=== PATIENT | female | born 1970 | race Caucasian/White ===

== ENCOUNTER → 2017-06-03 17:30 | Outpatient (REF) | payer MEDICAID, SELFPAY | LOC: LAB 17:30 | PROVIDERS: Visit Provider Nurse Practitioner Obstetrics & Gynecology | DX: L73.2 Hidradenitis suppurativa (principal) | CPT/HCPCS: 87070; 87077; 87205 ==

== ENCOUNTER 2018-07-20 19:13 | Emergency (ER) | payer MEDICAID, SELFPAY ==
[2018-07-20 19:35] VITALS: BP 117/71; PULSE 91; RESP 16; TEMP 36.6; O2SAT 98; BMI 30.9
--- NOTE | 2018-07-20 19:47 | HMH.EDUTC ---
[facility] [place] Disposition Clinical Impression: Torticollis Disposition: Home, Self-Care Condition on Discharge: Good Instructions: Torticollis, DI for Torticollis Additional Instructions: Take the medications as directed. Follow up with your regular doctor. Apply heat to the affected areas. Make sure you don't burn yourself. GO TO THE ER FOR ANY WORSENING SYMPTOMS Prescriptions: predniSONE [Prednisone 20mg Tab] 20 mg PO BID 4 Days #8 tab Methocarbamol [Robaxin 500mg Tab] 500 mg PO TIDP PRN #30 tab PRN Reason: Muscle Spasm Referrals: Rafa Hoffman [Primary Care Provider] - Time of Disposition: 19:58 Medical Decision Making - Medical Records Medical records reviewed: Yes: I reviewed the patient's medical records. - Mark Inquiry Pt receiving controlled substance: No Mark was queried for this patient: No Vital Signs: 07/20/18 19:35 07/20/18 20:03 Temperature 98 F 98 F Temperature Source Oral Pulse Rate 91 H Pulse Rate [Left Radial] 91 H Respiratory Rate 16 16 Blood Pressure 117/71 Blood Pressure [Left Arm] 117/71 Blood Pressure Mean [Left Arm] 86 Blood Pressure Source [Left Arm] Automatic Cuff Blood Pressure Position [Left Arm] Sitting 02 Sat by Pulse Oximetry 98 Oxygen Delivery Method Room Air [facility] [place] HPI - General Time Seen by Provider: 07/20/18 19:48 Mode of Arrival: Ambulatory Source of Information: Patient Limitations: No Limitations Description of Symptoms (Recalled from Triage Doc. by RN): PT STATES THAT SHE WOKE UP YESTERDAY MORNING WITH A STIFF NECK. PT ADVISES THAT UPON AWAKENING THIS MORNING, THE STIFFNESS AND PAIN HAD WORKED DOWN INTO HER RT SHOULDER AND ARM HEENT Symptoms (Recalled from RN notes): No Resp Symptoms (Recalled from RN notes): No Skin Symptoms (Recalled from RN notes): No MS Symptoms (Recalled from RN notes): Yes (STIFF/PAINFUL NECK AND RT ARM) Functional Status (Recalled from RN notes): N/A - Related Data Home Medications Medication Instructions Recorded Confirmed clonazepam 1 mg tablet 0.5 mg PO BID tab 06/03/17 05/03/18 ethosuximide 250 mg capsule 250 mg PO QID cap 06/03/17 05/03/18 levothyroxine 175 mcg tablet 175 mcg PO ONCE 06/03/17 05/03/18 lisinopril 5 mg tablet 5 mg PO ONCE 06/03/17 05/03/18 paroxetine 30 mg tablet 30 mg PO ONCE 06/03/17 05/03/18 simvastatin 40 mg tablet 40 mg PO QAM 06/03/17 05/03/18 Phenazopyridine HCl [Pyridium 200 pow PO TID 01/29/18 05/03/18 200mg Tablet] predniSONE [Prednisone 20mg 20 mg PO BID 05/03/18 05/03/18 Tab] Previous Rx's Medication Instructions Recorded Albuterol Sulfate [Albuterol HFA 2 puffs IH Q6HP PRN #1 inh 07/08/18 Inhaler] Benzonatate [Tessalon Perle 100mg 100 mg PO TID PRN #15 cap 07/08/18 Cap] Doxycycline Monohydrate 100 mg PO BID #14 tab 07/08/18 [Doxycycline Wallace 100mg Tab] predniSONE [Prednisone 20mg 20 mg PO BID #10 tab 07/08/18 Tab] Methocarbamol [Robaxin 500mg Tab] 500 mg PO TIDP PRN #30 tab 07/20/18 predniSONE [Prednisone 20mg 20 mg PO BID 4 Days #8 tab 07/20/18 Tab] Allergies Allergy/AdvReac Type Severity Reaction Status Date / Time erythromycin base Allergy Unknown Verified 07/08/18 09:13 [ERYTHROMYCIN BASE] Penicillins [PENICILLINS] Allergy Unknown Verified 07/08/18 09:13 - Worker's Comp Is this a Worker's Comp case?: No [facility] History - Hepatitis A Screen Drug use history?: No High risk sexual behaviors?: No History of sexually transmitted infection?: No Currently employed?: No Childcare worker?: No Do you have indoor plumbing?: Yes Do you have electricity?: Yes Attestation statement:: This patient has been screened for Hepatitis A risk factors. I have reviewed the patient's past medical history: Yes Medical History: Reports:: Anxiety, Depression, Hyperlipidemia, Hypertension, Seizures Denies:: Cancer, Diabetes Mellitus Type 1, Diabetes Mellitus Type 2, MRSA Other Medical History: Reports: Thyroid Dise
--- NOTE | 2018-07-20 19:52 | ED_ITS ---
[facility] [place] Disposition Clinical Impression: Torticollis Disposition: Home, Self-Care Condition on Discharge: Good Instructions: Torticollis, DI for Torticollis Additional Instructions: Take the medications as directed. Follow up with your regular doctor. Apply heat to the affected areas. Make sure you don't burn yourself. GO TO THE ER FOR ANY WORSENING SYMPTOMS Prescriptions: predniSONE [Prednisone 20mg Tab] 20 mg PO BID 4 Days #8 tab Methocarbamol [Robaxin 500mg Tab] 500 mg PO TIDP PRN #30 tab PRN Reason: Muscle Spasm Referrals: Rafa Hoffman [Primary Care Provider] - Time of Disposition: 19:58 Medical Decision Making - Medical Records Medical records reviewed: Yes: I reviewed the patient's medical records. - Mark Inquiry Pt receiving controlled substance: No Mark was queried for this patient: No Vital Signs: 07/20/18 19:35 07/20/18 20:03 Temperature 98 F 98 F Temperature Source Oral Pulse Rate 91 H Pulse Rate [Left Radial] 91 H Respiratory Rate 16 16 Blood Pressure 117/71 Blood Pressure [Left Arm] 117/71 Blood Pressure Mean [Left Arm] 86 Blood Pressure Source [Left Arm] Automatic Cuff Blood Pressure Position [Left Arm] Sitting 02 Sat by Pulse Oximetry 98 Oxygen Delivery Method Room Air [facility] [place] HPI - General Time Seen by Provider: 07/20/18 19:48 Mode of Arrival: Ambulatory Source of Information: Patient Limitations: No Limitations Description of Symptoms (Recalled from Triage Doc. by RN): PT STATES THAT SHE WOKE UP YESTERDAY MORNING WITH A STIFF NECK. PT ADVISES THAT UPON AWAKENING THIS MORNING, THE STIFFNESS AND PAIN HAD WORKED DOWN INTO HER RT SHOULDER AND ARM HEENT Symptoms (Recalled from RN notes): No Resp Symptoms (Recalled from RN notes): No Skin Symptoms (Recalled from RN notes): No MS Symptoms (Recalled from RN notes): Yes (STIFF/PAINFUL NECK AND RT ARM) Functional Status (Recalled from RN notes): N/A - Related Data Home Medications Medication Instructions Recorded Confirmed clonazepam 1 mg tablet 0.5 mg PO BID tab 06/03/17 05/03/18 ethosuximide 250 mg capsule 250 mg PO QID cap 06/03/17 05/03/18 levothyroxine 175 mcg tablet 175 mcg PO ONCE 06/03/17 05/03/18 lisinopril 5 mg tablet 5 mg PO ONCE 06/03/17 05/03/18 paroxetine 30 mg tablet 30 mg PO ONCE 06/03/17 05/03/18 simvastatin 40 mg tablet 40 mg PO QAM 06/03/17 05/03/18 Phenazopyridine HCl [Pyridium 200 pow PO TID 01/29/18 05/03/18 200mg Tablet] predniSONE [Prednisone 20mg 20 mg PO BID 05/03/18 05/03/18 Tab] Previous Rx's Medication Instructions Recorded Albuterol Sulfate [Albuterol HFA 2 puffs IH Q6HP PRN #1 inh 07/08/18 Inhaler] Benzonatate [Tessalon Perle 100mg 100 mg PO TID PRN #15 cap 07/08/18 Cap] Doxycycline Monohydrate 100 mg PO BID #14 tab 07/08/18 [Doxycycline [place] 100mg Tab] predniSONE [Prednisone 20mg 20 mg PO BID #10 tab 07/08/18 Tab] Methocarbamol [Robaxin 500mg Tab] 500 mg PO TIDP PRN #30 tab 07/20/18 predniSONE [Prednisone 20mg 20 mg PO BID 4 Days #8 tab 07/20/18 Tab] Allergies Allergy/AdvReac Type Severity Reaction St
[2018-07-20 20:03] VITALS: BP 117/71; PULSE 91; RESP 16; TEMP 36.6; O2SAT 98
== END 2018-07-20 20:03 | disposition home or self-care (01) ==
PROVIDERS: Emergency Provider Nurse Practitioner Family; PCP Family Medicine
DX: M43.6 Torticollis (principal); I10 Essential (primary) hypertension; F41.8 Other specified anxiety disorders; E78.5 Hyperlipidemia, unspecified; F17.210 Nicotine dependence, cigarettes, uncomplicated; Z88.0 Allergy status to penicillin
CPT/HCPCS: 99201

== ENCOUNTER 2018-08-08 06:47 | Emergency (ER) | payer MEDICAID, SELFPAY ==
[2018-08-08 06:57] VITALS: BP 120/68; PULSE 103; RESP 20; TEMP 36.8; O2SAT 97; BMI 32.9
--- NOTE | 2018-08-08 07:01 | HMH.EDGENADL ---
ED Disposition Condition on Discharge: Fair - Critical Care Critical Care Time: No <CeliaPeng - Last Filed: 08/08/18 08:05> Condition on Discharge: Fair - Critical Care Critical Care Time: No <MariojamieBeti - Last Filed: 08/08/18 09:44> Clinical Impression: Right lower quadrant abdominal pain, UTI (urinary tract infection), Enteritis, Hx of seizure disorder, Hypertension Disposition: Home, Self-Care Additional Instructions: 1- DRINK PLENTY OF GOTRADE 16 OZ Q 4-6 HOURS. 2- OBSERVE 4-5 UOP A DAY. 3- CIPRO 500 MG PO BID # 10. 4- BENTYL 10 MG TID PRN CRAMPS . 5- IMODIUM 2 MG QID PRN DIARRHEA. 6- TO RETURN IF NEW SX DEVLOPS OR WORSE PAIN 7- FOLLOW UP WITH DR. HOFFMAN IN AM Prescriptions: Loperamide HCl [Imodium A-D] 2 mg PO Q6HP PRN #12 cap PRN Reason: Diarrhea Dicyclomine HCl [Bentyl 10mg capsule] 10 mg PO Q8H #20 cap Ciprofloxacin HCl [Cipro 500mg Tab] 500 mg PO BID #10 tab Referrals: Rafa Hoffman [Primary Care Provider] - Attestation: On 08/08/18, the high probability of a clinically significant, sudden or life threatening deterioration of the following system(s) required my full and direct attention, intervention and personal management. The time I documented below is in addition to time spent performing reported procedures but includes the following listed in this critical care notation. Medical Decision Making - Mark Inquiry Pt receiving controlled substance: No - Lab Data Result diagrams: 08/08/18 07:07 08/08/18 07:07 <CeliaPeng - Last Filed: 08/08/18 08:05> - Mark Inquiry Pt receiving controlled substance: No Mark was queried for this patient: No - Lab Data Result diagrams: 08/08/18 07:07 08/08/18 07:07 <MariojamieBeti - Last Filed: 08/08/18 09:44> Vital Signs: 08/08/18 06:57 08/08/18 08:22 Temperature 98.3 F Temperature Source Oral Pulse Rate [Right] 103 H 75 Respiratory Rate 20 Blood Pressure [Right Arm] 120/68 131/87 Blood Pressure Mean [Right Arm] 85 101 Blood Pressure Source [Right Arm] Automatic Cuff Blood Pressure Position [Right Arm] Sitting 02 Sat by Pulse Oximetry 97 94 L Oxygen Delivery Method Room Air - Lab Data Lab Results 08/08/18 07:05: Urine Color Yellow, Urine Appearance Clear, Urine pH 7.0, Ur Specific [place] 1.020, Urine Protein Negative, Urine Glucose (UA) Negative, Urine Ketones Negative, Urine Blood 1+, Urine Nitrate Negative, Urine Bilirubin Negative, Urine Urobilinogen 0.2, Ur Leukocyte Esterase 2+ A, Urine RBC 3-5, Urine WBC 10-20, Ur Squamous Epith Cells 20-50, Urine Bacteria 3+ 08/08/18 07:07: WBC 13.0 H, RBC 4.90, Hgb 14.6, Hct 46.0, MCV 93.9, MCH 29.7, MCHC 31.7 L, RDW 13.7, Plt Count 302, MPV 8.0, Neut % (Auto) 56.1, Lymph % (Auto) 32.0, [place] % (Auto) 9.4 H, Eos % (Auto) 1.9, Baso % (Auto) 0.6, Neut # (Auto) 7.3, Lymph # (Auto) 4.2, [place] # (Auto) 1.2 H, Eos # (Auto) 0.3, Baso # (Auto) 0.1 08/08/18 07:07: Sodium 137, Potassium 4.5, Chloride 102, Carbon Dioxide 23, Anion Gap 16.5 H, BUN 19 H, Creatinine 0.66, Estimated Creat Clear 133, Estimated GFR 95, Est GFR ( Amer) 115, Glucose 98, Calcium 8.9, Total Bilirubin 0.2, AST 12 L, ALT 17, Alkaline Phosphatase 78, Total Protein 7.0, Albumin 3.2 L, Globulin 3.8 H, Albumin/Globulin Ratio 0.8 L, Amylase 49, Lipase 314 Orders (Tests/Meds): ED MEDICATIONS Discontinued Medications Generic Name Dose Route Start Last Admin Trade Name Freq PRN Reason Stop Dose Admin Ioversol 75 ml 08/08/18 08:23 08/08/18 08:26 Rad-Optiray 350 100ml Vial IV 08/08/18 08:24 75 ml ONCE ONE Administration Protocol Ketorolac Tromethamine 30 mg 08/08/18 07:21 08/08/18 07:28 Toradol 30mg/Ml Vial IV 08/08/18 07:22 30 mg ONCE ONE Administration Ondansetron HCl 4 mg 08/08/18 07:21 08/08/18 07:28 Zofran 4mg/2ml Vial IV 08/08/18 07:22 4 mg ONCE ONE Administration Sodium Chloride 1,000 ml 08/08/18 07:21 08/08/18 07:28 Sod Chlor 0.
--- NOTE | 2018-08-08 07:10 | CT_ITS ---
CT abdomen pelvis w con INDICATION: Right lower quadrant pain 3 days. Diarrhea. Pain radiates to the back ITS.REASON: RLQ abdo pain, r/o appy ORDERING PHYSICIAN: Peng Yang MD PATIENT AGE: 48 years COMPARISON: Previous CT abdomen pelvis October 2016 . TECHNIQUE: 75 cc Optiray 350 IV contrast. Given No oral contrast utilized Axial images obtained with sagittal and coronal reformats. All CT scans at the facility use one or more dose reduction, viz: automated exposure control, ma/kV adjustment per patient size (including targeted exams where dose is matched to indication, i.e. head), or iterative reconstruction technique. FINDINGS: Lower thorax. Lung bases clear. Heart normal size. Upper normal wall thickness distal esophagus. Abdomen. Liver, spleen, pancreas, adrenals unremarkable. Gallbladder is been removed with clips at gallbladder fossa. No biliary ductal dilatation. No significant retroperitoneal nor mesenteric adenopathy. A few scattered mesenteric lymph nodes TRACT no urinary tract calculi nor obstruction. Normal size & enhancement both kidneys. Ureters unremarkable. No dilatation nor calculi PELVIS:. Urinary bladder unremarkable. Uterus normal in size with Moderate-generous endometrial stripe measuring just less than 1 cm AP No adnexal masses. Ovaries appear normal in size. Larger left ovary measuring up to 3.1 cm and contains numerous cysts, largest 15 mm size. No significant free fluid at pelvis GI TRACT. Appendix is normal . Well visualized at RLQ on coronal image [id number] Large bowel slight increase solid stool throughout the right and transverse colon minimal stool Moderate stool at the rectosigmoid. Small bowel. Scattered air-fluid levels within small bowel. Some areas small bowel upper normal caliber but not significantly dilated. . Slight increased fluid at the distal most small bowel and terminal ileum could reflect mild enteritis.-But unimpressive Osseous. No lesions or significant regions. IMPRESSION: ...... 1. No definitive acute findings abdomen or pelvis ..Appendix normal. . No urinary tract calculi nor obstruction 2.. Only note Slight increased in nondilated distal small bowel with scattered small air-fluid levels. Unimpressive . Period fluid & borderline distention of the terminal ileum ileum. These features conceivably could reflect a minor enteritis but overall very unimpressive .No liquid stool within large bowel to reflect history of diarrhea. . Moderate solid stool at rectosigmoid, as well as and right & transverse colon 3.. Generous endometrial stripe within upper normal size uterus Larger left ovary is normal size with several cysts largest up to 1.6 cm
[2018-08-08 07:13] LABS: Appearance,Urine CLEAR (Clear); Bilirubin,Urine Negative (Negative); Blood, Urine 1+ (Negative); Color,Urine YELLOW (Yellow); Glucose,Urine (UA) Negative (Negative); Ketones,Urine Negative (Negative); Leukocyte Esterase,Urine 2+ (Negative); Microscopic, Urine URINE MICROSCOPIC (MICROSCOPIC); Nitrate,Urine Negative (Negative); Protein,Urine Negative (Negative); Urobilinogen,Urine 0.2 EU/dl (0.2)
--- NOTE | 2018-08-08 07:15 | PC.NURSE ---
rad notified of CT order
[2018-08-08 07:16] LABS: Basophils # 0.1 K/mm3 (0-0.2); Basophils % 0.6 % (0.1-2.0); Eosinophils # 0.3 K/mm3 (0.0-0.4); Eosinophils % 1.9 % (0.1-12.0); Hemoglobin 14.6 g/dL (12.2-16.2); Lymphocytes # 4.2 K/mm3 (0.7-4.5); Mean Corpuscular HGB Conc 31.7 g/dL (31.8-35.4); Mean Corpuscular Hemoglobin 29.7 pg (27.0-31.2); Mean Corpuscular Volume 93.9 fl (81-99); Monocytes # 1.2 K/mm3 (0.1-1.0); Monocytes % 9.4 % (1.7-9.3); Neutrophils # 7.3 K/mm3 (1.8-7.8); Neutrophils % 56.1 % (37.0-80.0); Platelet Count 302 K/mm3 (142-424); Red Cell Distribution Width 13.7 % (11.5-17.5)
[2018-08-08 07:27] LABS: Bacteria,Urine 3+ /lpf; Squamous Epithelial Cell,Urine 20-50 #/hpf (0-5)
[2018-08-08 07:36] LABS: Alanine Aminotransferase 17 U/L (12-78); Albumin Level 3.2 gm/dL (3.4-5.0); Albumin/Globulin Ratio 0.8 (1.1-1.8); Alkaline Phosphatase 78 U/L (46-116); Amylase 49 U/L (25-115); Anion Gap 16.5 mEq/L (5-15); Aspartate Amino Transferase 12 U/L (15-37); Bilirubin,Total 0.2 mg/dL (0.2-1.0); Blood Urea Nitrogen 19 mg/dL (7-18); Calcium 8.9 mg/dL (8.5-10.1); Carbon Dioxide 23 mmol/L (21.0-32.0); Chloride 102 mmol/L (98-107); Creatinine Clearance Estimated 133 mL/min (50-200); Creatinine,Serum 0.66 mg/dL (0.55-1.02); Estimated Glomerular Filt Rate 95 ml/min (>60); GFR (African American) 115 ML/MIN (>60); Globulin 3.8 gm/dl (1.3-3.2); Glucose 98 mg/dL (74-106); Lipase 314 u/L (73-393); Potassium 4.5 mmoL/L (3.5-5.1); Sodium 137 mmol/L (136-145)
--- NOTE | 2018-08-08 07:43 | PC.NURSE ---
Pt to rad.
[2018-08-08 08:22] VITALS: BP 131/87; PULSE 75; O2SAT 94
[2018-08-08 09:58] VITALS: BP 132/74; PULSE 88; RESP 16; TEMP 36.6; O2SAT 98
== END 2018-08-08 10:00 | disposition home or self-care (01) ==
PROVIDERS: Emergency Provider Emergency Medicine; PCP Family Medicine
DX: K52.9 Noninfective gastroenteritis and colitis, unspecified (principal); N30.00 Acute cystitis without hematuria; I10 Essential (primary) hypertension; R56.9 Unspecified convulsions; E78.5 Hyperlipidemia, unspecified; F41.8 Other specified anxiety disorders; Z88.0 Allergy status to penicillin; F17.210 Nicotine dependence, cigarettes, uncomplicated
CPT/HCPCS: 74177; 80053; 81001; 82150; 83690; 85025; 87086; 96365; 96375; 99283; J2405; Q9967

== ENCOUNTER 2019-02-12 22:43 | Emergency (ER) | payer MEDICAID, SELFPAY ==
[2019-02-12 22:52] VITALS: BP 118/82; PULSE 106; RESP 18; TEMP 36.6; O2SAT 97
--- NOTE | 2019-02-12 23:01 | CT_ITS ---
Procedure: CT ABDOMEN PELVIS W CON Patient Age:49Y CLINICAL INDICATION: RLQ pain the with nausea and vomiting of 3 days. Also history of kidney stones COMPARISON: ABDPELW CT abdomen pelvis w con from 08/08/2018 TECHNIQUE: IV contrast utilized: 75 cc Optiray 350 No oral contrast given the Axial images obtained with sagittal and coronal reformats. All CT scans at the facility use one or more dose reduction, viz: automated exposure control, ma/kV adjustment per patient size (including targeted exams where dose is matched to indication, i.e. head), or iterative reconstruction technique. FINDINGS: Lower thorax: No acute finding ABDOMEN: Liver: Unremarkable no masses or biliary dilatation. Gallbladder: Surgically removed. Common duct normal/the no biliary ductal dilatation. Pancreas: Unremarkable no masses or peripancreatic inflammatory changes. Spleen:. Granulomatous calcifications otherwise modest size and unremarkable Adrenals: unremarkable TRACT/pelvis Kidneys/ureters: UnremarkableNo urinary tract calculi nor obstruction. Normal enhancing kidneys. Ureters unremarkable PELVIS:No adnexal masses. Uterus and visualized ovaries normal size. Bladder: Nondistended. No obvious stones or masses. GI TRACT the Stomach: Moderate fluid within the stomach. No distension Small bowel: No dilatation or obstruction upper normal wall thickness proximal small bowel. The terminal ileum normal. Appendix appears normal well visualized Large bowel: No bowel dilatation a [id number] stool throughout the colon Mild submucosal fat deposition of yields mild wall thickening most evident the cecum and along right colon-. This is a nonspecific feature-It can be seen mild chronic bowel inflammation or can be merely a variation of fat distribution. No pericolic inflammation or stranding the Peritoneum: No abnormal fluid collections. No obvious inflammatory changes. No free air. Lymph nodes: No enlarged lymph nodes apparent. Vasculature: . Aorta normal caliber. SMA and celiac artery normal branching the developing atheromatous plaque noted along left iliac artery more so than right. Bones: No acute findings but no focal lesions. Levoscoliosis most evident towards upper lumbar spine again noted IMPRESSION: No acute findings abdomen or pelvis Appendix normal Minor observations in text Dictated by: Evan Wilson MD 02/13/2019 09:50 Electronically signed by Evan Wilson MD in [place] 02/13/2019 09:50
--- NOTE | 2019-02-12 23:03 | HMH.EDNVD ---
ED Disposition Clinical Impression: Abdominal pain Qualifiers: Abdominal location: right lower quadrant Qualified Code(s): R10.31 - Right lower quadrant pain Disposition: Home, Self-Care Condition on Discharge: Good Instructions: DI for Acute Abdomen Additional Instructions: fluids and call pcp for edmundo espino Referrals: Rafa Hoffman [Primary Care Provider] - - Critical Care Critical Care Time: No Attestation: On 02/12/19, the high probability of a clinically significant, sudden or life threatening deterioration of the following system(s) required my full and direct attention, intervention and personal management. The time I documented below is in addition to time spent performing reported procedures but includes the following listed in this critical care notation. Medical Decision Making - Medical Records Medical records reviewed: Yes: I reviewed the patient's medical records. - Mark Inquiry Pt receiving controlled substance: No Vital Signs: 02/12/19 22:52 Temperature 97.9 F Temperature Source Oral Pulse Rate [Right Radial] 106 H Respiratory Rate 18 Blood Pressure [Right Arm] 118/82 Blood Pressure Mean [Right Arm] 94 02 Sat by Pulse Oximetry 97 Oxygen Delivery Method Room Air - Lab Data Lab results reviewed: Yes: I reviewed the patient's lab results. Lab Results 02/12/19 23:10: WBC 8.7, RBC 4.77, Hgb 15.0, Hct 44.3, MCV 92.9, MCH 31.5 H, MCHC 33.9, RDW 13.1, Plt Count 246, MPV 7.9, Neut % (Auto) 51.9, Lymph % (Auto) 39.7, [place] % (Auto) 5.9, Eos % (Auto) 2.0, Baso % (Auto) 0.5, Neut # (Auto) 4.5, Lymph # (Auto) 3.4, [place] # (Auto) 0.5, Eos # (Auto) 0.2, Baso # (Auto) 0.0, ESR 2 02/12/19 23:10: Sodium 139, Potassium 4.1, Chloride 104, Carbon Dioxide 27, Anion Gap 12.1, BUN 17, Creatinine 0.67, Estimated Creat Clear 126, Estimated GFR 93, Est GFR ( Amer) 113, Glucose 97, Calcium 8.4 L, Total Bilirubin 0.2, AST 11 L, ALT 17, Alkaline Phosphatase 78, C-Reactive Protein < 0.2, Total Protein 6.7, Albumin 3.2 L, Globulin 3.5 H, Albumin/Globulin Ratio 0.9 L, Amylase 69, Lipase 261 02/13/19 00:05: Urine Color Yellow, Urine Appearance Clear, Urine pH 7.5, Ur Specific [place] <= 1.005, Urine Protein Negative, Urine Glucose (UA) Negative, Urine Ketones Negative, Urine Blood Trace-i, Urine Nitrate Negative, Urine Bilirubin Negative, Urine Urobilinogen 1.0, Ur Leukocyte Esterase Negative, Urine RBC 3-5, Ur Squamous Epith Cells Occasional, Amorphous Sediment Trace Result diagrams: 02/12/19 23:10 02/12/19 23:10 Orders (Tests/Meds): ED MEDICATIONS Generic Name Dose Route Start Last Admin Trade Name Freq PRN Reason Stop Dose Admin Sodium Chloride 1,000 mls @ 999 mls/hr 02/12/19 23:15 02/12/19 23:17 Sod Chlor 0.9% 1000ml Bag IV 02/13/19 00:15 999 mls/hr .Q1H1M VIDHYA Administration Discontinued Medications Generic Name Dose Route Start Last Admin Trade Name Freq PRN Reason Stop Dose Admin Ioversol 75 ml 02/12/19 23:58 02/12/19 23:59 Rad-Optiray 350 100ml Vial IV 02/12/19 23:59 75 ml ONCE ONE Administration Protocol Ondansetron HCl 4 mg 02/12/19 23:01 02/12/19 23:17 Zofran 4mg/2ml Vial IV 02/12/19 23:02 4 mg ONCE ONE Administration Sodium Chloride 10 ml 02/12/19 23:58 02/12/19 23:59 Rad-Saline Flush 10ml Syringe IV 02/12/19 23:59 10 ml ONCE ONE Administration ORDERS Category Date Time Status CT abdomen pelvis w con Stat Cat Scan 02/12/19 23:01 Taken - CT Data CT Scan: Abdomen, Pelvis Time Received: 00:[address] Reviewed: Yes: I have viewed the radiologist's interpretation Preliminary Findings: Normal/NAD Nausea/Vomiting/Diarrhea HPI - General Chief complaint: Abdominal Pain Stated complaint: vomitting Time Seen by Provider: 02/12/19 23:00 Mode of Arrival: Ambulatory Source of Information: Patient, Spouse, Medical Record Limitations: No Limitations Description of Symptoms (Recalled from ER Triage Doc. by RN): RLQ pain that radiates t
[2019-02-12 23:21] LABS: Basophils % 0.5 % (0.1-2.0); Eosinophils # 0.2 K/mm3 (0.0-0.4); Hematocrit 44.3 % (37.0-47.0); Lymphocytes # 3.4 K/mm3 (0.7-4.5); Lymphocytes % 39.7 % (10-50); Mean Corpuscular HGB Conc 33.9 g/dL (31.8-35.4); Mean Corpuscular Hemoglobin 31.5 pg (27.0-31.2); Mean Corpuscular Volume 92.9 fl (81-99); Mean Platelet Volume 7.9 fl (7.4-10.4); Monocytes # 0.5 K/mm3 (0.1-1.0); Monocytes % 5.9 % (1.7-9.3); Neutrophils # 4.5 K/mm3 (1.8-7.8); Neutrophils % 51.9 % (37.0-80.0); Platelet Count 246 K/mm3 (142-424); Red Blood Count 4.77 M/mm3 (4.20-5.40); Red Cell Distribution Width 13.1 % (11.5-17.5); White Blood Count 8.7 K/mm3 (4.8-10.8)
[2019-02-12 23:29] LABS: Alanine Aminotransferase 17 U/L (12-78); Albumin Level 3.2 gm/dL (3.4-5.0); Albumin/Globulin Ratio 0.9 (1.1-1.8); Alkaline Phosphatase 78 U/L (46-116); Amylase 69 U/L (25-115); Anion Gap 12.1 mEq/L (5-15); Aspartate Amino Transferase 11 U/L (15-37); Bilirubin,Total 0.2 mg/dL (0.2-1.0); Blood Urea Nitrogen 17 mg/dL (7-18); Calcium 8.4 mg/dL (8.5-10.1); Carbon Dioxide 27 mmol/L (21.0-32.0); Chloride 104 mmol/L (98-107); Creatinine Clearance Estimated 126 mL/min (50-200); Creatinine,Serum 0.67 mg/dL (0.55-1.02); Estimated Glomerular Filt Rate 93 ml/min (>60); GFR (African American) 113 ML/MIN (>60); Globulin 3.5 gm/dl (1.3-3.2); Glucose 97 mg/dL (74-106); Lipase 261 u/L (73-393); Potassium 4.1 mmoL/L (3.5-5.1); Sodium 139 mmol/L (136-145); Total Protein,Serum 6.7 gm/dL (6.4-8.2)
[2019-02-12 23:30] LABS: C-Reactive Protein < 0.2 mg/dL (0.0-0.9)
[2019-02-12 23:53] LABS: Erythrocyte Sedimentation Rate 2 mm/hr (0-20)
[2019-02-13 00:15] LABS: Microscopic, Urine URINE MICROSCOPIC (MICROSCOPIC)
[2019-02-13 00:30] LABS: Appearance,Urine CLEAR (Clear); Bilirubin,Urine Negative (Negative); Blood, Urine TRACE-I (Negative); Color,Urine YELLOW (Yellow); Glucose,Urine (UA) Negative (Negative); Ketones,Urine Negative (Negative); Leukocyte Esterase,Urine Negative (Negative); Nitrate,Urine Negative (Negative); PH,Urine 7.5 (5.0-8.5); Protein,Urine Negative (Negative); Specific Gravity, Urine <= 1.005 (1.005-1.030)
[2019-02-13 00:35] LABS: Amorphous Sediment,Urine Trace /lpf; Squamous Epithelial Cell,Urine Occasional #/hpf (0-5)
[2019-02-13 01:27] VITALS: BP 115/80; PULSE 96; RESP 18; TEMP 36.6; O2SAT 96
== END 2019-02-13 01:29 | disposition home or self-care (01) ==
PROVIDERS: Emergency Provider Emergency Medicine; PCP Family Medicine
DX: R10.31 Right lower quadrant pain (principal); E03.9 Hypothyroidism, unspecified; I10 Essential (primary) hypertension; F41.8 Other specified anxiety disorders; E78.5 Hyperlipidemia, unspecified; R56.9 Unspecified convulsions; Z79.899 Other long term (current) drug therapy; Z90.09 Acquired absence of other part of head and neck; Z88.0 Allergy status to penicillin; Z88.1 Allergy status to other antibiotic agents
CPT/HCPCS: 74177; 80053; 81001; 82150; 83690; 85025; 85651; 86140; 96365; 96375; 99283; J2405; Q9967

== ENCOUNTER 2019-07-24 14:11 | Emergency (ER) | payer MEDICAID, SELFPAY ==
[2019-07-24 14:20] VITALS: BP 124/63; PULSE 91; RESP 18; TEMP 36.7; O2SAT 96; BMI 31.1
--- NOTE | 2019-07-24 14:22 | HMH.EDEXTP ---
ED Disposition Clinical Impression: Knee pain, left Qualifiers: Chronicity: chronic Qualified Code(s): M25.562 - Pain in left knee; G89.29 - Other chronic pain Disposition: Home, Self-Care Condition on Discharge: Good Instructions: DI for Knee Effusion, DI for Knee Pain Additional Instructions: Follow-up with orthopedic surgery on Friday as planned. Return to the emergency department if you develop any fever, acute worsening of symptoms. - Critical Care Critical Care Time: No Attestation: On , the high probability of a clinically significant, sudden or life threatening deterioration of the following system(s) required my full and direct attention, intervention and personal management. The time I documented below is in addition to time spent performing reported procedures but includes the following listed in this critical care notation. Medical Decision Making - Medical Records Medical records reviewed: Yes: I reviewed the patient's medical records. - Mark Inquiry Pt receiving controlled substance: No Medical Decision Narrative: Patient with no recent injury and symptoms present for several months with previous x-ray for the same problem, no need for repeat x-ray here. Suspect possible bursitis versus patellofemoral tendinitis with associated swelling. There are no signs of septic joint. No recent trauma that would prompt work-up for fracture or dislocation. Recommended RICE therapy and discharged to follow-up with orthopedic surgery in 4 days as planned Extremity Problem HPI - General Stated complaint: left knee pain, no accident Time Seen by Provider: 07/24/19 14:23 Mode of Arrival: Ambulatory Source of Information: Patient Limitations: No Limitations - History of Present Illness HPI Narrative: This is a 49-year-old female who presents to the emergency department for pain along the anterior left knee. It has been present for 1 month associated with some mild swelling. No fevers or recent trauma. Her knee has done this intermittently before in the past. She had an x-ray for this several months ago that showed no acute process. She follows up with orthopedic surgery in 4 days. The only thing that helps is rest and any sort of ambulation or movement makes it worse. - Related Data Home Medications Medication Instructions Recorded Confirmed clonazepam 1 mg tablet 0.5 mg PO BID tab 06/03/17 04/28/19 ethosuximide 250 mg capsule 250 mg PO QID cap 06/03/17 04/28/19 levothyroxine 175 mcg tablet 175 mcg PO ONCE 06/03/17 04/28/19 lisinopril 5 mg tablet 5 mg PO ONCE 06/03/17 04/28/19 paroxetine HCl 30 mg tablet 30 mg PO ONCE 06/03/17 04/28/19 simvastatin 40 mg tablet 40 mg PO QAM 06/03/17 04/28/19 Benzonatate [Tessalon Perle 100mg 100 mg PO TID 04/28/19 04/28/19 Cap] predniSONE [Prednisone 20mg 20 mg PO BID 04/28/19 04/28/19 Tab] Previous Rx's Medication Instructions Recorded Brompheniramine/Pseudoephed/Dm 5 ml PO Q6HP PRN #240 syrup 04/18/19 [Bromfed Dm Cough Syrup] Ibuprofen [Ibuprofen 600mg 600 mg PO Q6HP PRN #30 tab 04/18/19 Tablet] Allergies Allergy/AdvReac Type Severity Reaction Status Date / Time erythromycin base Allergy Mild Verified 04/28/19 10:48 [ERYTHROMYCIN BASE] Penicillins [PENICILLINS] Allergy Mild Verified 04/28/19 10:48 [facility] History - Hepatitis A Screen Attestation statement:: This patient has been screened for Hepatitis A risk factors. I have reviewed the patient's past medical history: Yes Medical History: Reports:: Anxiety, Depression, Hyperlipidemia, Hypertension, Seizures Denies:: Cancer, Diabetes Mellitus Type 1, Diabetes Mellitus Type 2, Internal Pacemaker, MRSA Other Medical History: Reports: Thyroid Disease Laterality Cases: Bilateral: Lumpectomy, Tonsillectomy Other Surgeries: Yes: Tubal Ligation. No: Pacemaker Amputation: No Fractures: No Comment: thyroid removed, biopsy breast on both due to knots, negative - Social His
[2019-07-24 14:30] VITALS: BP 101/70; PULSE 83; O2SAT 97
[2019-07-24 14:41] VITALS: BP 101/70; PULSE 83; RESP 18; TEMP 36.7; O2SAT 97
== END 2019-07-24 14:47 | disposition home or self-care (01) ==
PROVIDERS: Emergency Provider Emergency Medicine; PCP Family Medicine
DX: M25.562 Pain in left knee (principal); G89.29 Other chronic pain; Z88.0 Allergy status to penicillin; F41.8 Other specified anxiety disorders; E78.5 Hyperlipidemia, unspecified; I10 Essential (primary) hypertension; Z79.899 Other long term (current) drug therapy
CPT/HCPCS: 99282

== ENCOUNTER → 2020-06-05 15:14 | Outpatient (CLI) | payer MEDICAID, SELFPAY ==
[2020-06-05 17:21] LABS: HCG,Quantitative 4 mIU/ml (0-5.42)
== END ==
PROVIDERS: Visit Provider Obstetrics & Gynecology
DX: Z32.01 Encounter for pregnancy test, result positive (principal)
CPT/HCPCS: 36415; 84702

== ENCOUNTER → 2020-06-12 11:37 | Outpatient (CLI) | payer MEDICAID, SELFPAY ==
[2020-06-12 13:05] LABS: HCG,Quantitative 4 mIU/ml (0-5.42)
== END ==
PROVIDERS: Visit Provider Obstetrics & Gynecology
DX: E34.9 Endocrine disorder, unspecified (principal)
CPT/HCPCS: 36415; 84702

== ENCOUNTER 2020-09-13 18:34 | Emergency (ER) | payer MEDICAID, SELFPAY ==
[2020-09-13 19:07] VITALS: BP 122/89; PULSE 91; RESP 22; TEMP 37; O2SAT 99; BMI 31.1
--- NOTE | 2020-09-13 19:36 | HMH.EDUTC ---
[facility] [place] Clinical Impression: Encounter for laboratory testing for COVID-19 virus Disposition: Home, Self-Care Condition on Discharge: Good Instructions: DI for COVID-19 (Suspected or Confirmed ), Coronavirus Disease 2019, Preventing the Spread of Coronavirus Discharge Instructions Additional Instructions: *Monitor Temp, Over the counter Motrin or Tylenol as directed/as needed Tylenol every 4 hours and Motrin every 6 hours (as long as your family doctor has told you that you can take it) for fever or pain. and straight to ER if unable to lower temp less than 101.0 after medication given Follow up IMMEDIATELY for new or worsening symptoms or no Noticeable improvement over the next 48-72 hours. 911 for difficulty breathing or swallowing You were tested for today for COVID19 your test result should be back in the next 24-48 hours, you may call to the [facility] to see if your test results are back in the next 48 hours [phone] [facility] hours are 9am-9pm You was given a handout with instructions for Self Quarantine and Self isolation for while you wait on test results and what to do if they are positive If you are positive the Health Dept will be contacting you also Referrals: Rafa Hoffman [Primary Care Provider] - As needed Time of Disposition: 19:37 Medical Decision Making - Mark Inquiry Pt receiving controlled substance: No Mark was queried for this patient: No Vital Signs: 09/13/20 19:07 Temperature 98.6 F Temperature Source Oral Pulse Rate [Left] 91 H Respiratory Rate 22 Blood Pressure [Right Arm] 122/89 Blood Pressure Mean [Right Arm] 100 02 Sat by Pulse Oximetry 99 Orders (Tests/Meds): ORDERS Category Date Time Status Covid-19 Nasal PCR ([facility]) Routine Lab 09/13/20 19:00 Received [facility] [place] - General Stated complaint: COVID TEST Time Seen by Provider: 09/13/20 19:36 Mode of Arrival: Ambulatory Source of Information: Patient Limitations: No Limitations Description of Symptoms (Recalled from Triage Doc. by RN): pt states, I want tested just to see... pt denies symptoms or exposure. HEENT Symptoms (Recalled from RN notes): No Resp Symptoms (Recalled from RN notes): No Skin Symptoms (Recalled from RN notes): No MS Symptoms (Recalled from RN notes): No Functional Status (Recalled from RN notes): na - History of Present Illness Provider Complaint: Patient states that she wanted to get checked for COVID denies known exposure and no symptoms States that she just wanted to get tested to be safe - Related Data Home Medications Medication Instructions Recorded Confirmed clonazepam 1 mg tablet 0.5 mg PO BID tab 06/03/17 04/28/19 ethosuximide 250 mg capsule 250 mg PO QID cap 06/03/17 04/28/19 levothyroxine 175 mcg tablet 175 mcg PO ONCE 06/03/17 04/28/19 lisinopril 5 mg tablet 5 mg PO ONCE 06/03/17 04/28/19 paroxetine HCl 30 mg tablet 30 mg PO ONCE 06/03/17 04/28/19 simvastatin 40 mg tablet 40 mg PO QAM 06/03/17 04/28/19 Benzonatate [Tessalon Perle 100mg 100 mg PO TID 04/28/19 04/28/19 Cap] predniSONE [Prednisone 20mg 20 mg PO BID 04/28/19 04/28/19 Tab] Previous Rx's Medication Instructions Recorded Brompheniramine/Pseudoephed/Dm 5 ml PO Q6HP PRN #240 syrup 04/18/19 [Bromfed Dm Cough Syrup] Ibuprofen [Ibuprofen 600mg 600 mg PO Q6HP PRN #30 tab 04/18/19 Tablet] Allergies Allergy/AdvReac Type Severity Reaction Status Date / Time erythromycin base Allergy Mild Verified 04/28/19 10:48 [ERYTHROMYCIN BASE] Penicillins [PENICILLINS] Allergy Mild Verified 04/28/19 10:48 - Worker's Comp Is this a Worker's Comp case?: No [facility] History - Hepatitis A Screen Drug use history?: No High risk sexual behaviors?: No History of sexually transmitted infection?: No Currently employed?: No Childcare worker?: No Do you have indoor plumbing?: Yes Do you have electricity?: Yes Attestation statement:: This patient has been screened for Hepatitis A risk fac
[2020-09-13 19:52] VITALS: BP 123/87; PULSE 86; RESP 20; TEMP 36.6
== END 2020-09-13 19:53 | disposition home or self-care (01) ==
PROVIDERS: Emergency Provider Nurse Practitioner; PCP Family Medicine
DX: U07.1 COVID-19 (principal); I10 Essential (primary) hypertension; E78.5 Hyperlipidemia, unspecified; F41.8 Other specified anxiety disorders; F17.210 Nicotine dependence, cigarettes, uncomplicated; Z79.899 Other long term (current) drug therapy
CPT/HCPCS: 99202; G0463; U0003

== ENCOUNTER 2020-10-13 17:59 | Emergency (ER) | payer MEDICAID, SELFPAY ==
[2020-10-13 20:55] VITALS: BP 148/96; PULSE 91; RESP 18; TEMP 36.8; O2SAT 98; BMI 32.1
--- NOTE | 2020-10-13 21:21 | HMH.EDUTC ---
[facility] [place] Clinical Impression: Conjunctivitis Qualifiers: Conjunctivitis type: acute Acute conjunctivitis type: bacterial Laterality: bilateral Qualified Code(s): H10.33 - Unspecified acute conjunctivitis, bilateral Disposition: Home, Self-Care Condition on Discharge: Good Instructions: How to Instill Eye Drops, DI for Conjunctivitis Additional Instructions: Use the eye drops as directed. Strict hand washing in the house hold, because conjunctivitis is very contagious. Follow up with your regular doctor. GO TO THE ER FOR ANY WORSENING SYMPTOMS OR CONCERNS Follow up with the eye doctor at [facility]. Prescriptions: Ibuprofen [Ibuprofen 800mg Tablet] 800 mg PO Q8HP PRN #30 tab PRN Reason: Moderate Pain Transmission Status: Received by [facility] #[id number] Sulfacetamide Sodium [Bleph-10] 1 drp EYE-BOTH Q3H 7 Days #1 bottle Transmission Status: Received by [facility] #[id number] Referrals: Carlos Hoffman [Primary Care Provider] - Time of Disposition: 21:33 Medical Decision Making - Medical Records Medical records reviewed: No: I reviewed the patient's medical records. - Mark Inquiry Pt receiving controlled substance: No Vital Signs: 10/13/20 20:55 10/13/20 21:27 Temperature 98.3 F 98.3 F Temperature Source Oral Pulse Rate 91 H Pulse Rate [Right Brachial] 91 H Respiratory Rate 18 18 Blood Pressure 148/96 H Blood Pressure [Right Arm] 148/96 H Blood Pressure Mean [Right Arm] 113 Blood Pressure Source [Right Arm] Automatic Cuff Blood Pressure Position [Right Arm] Sitting 02 Sat by Pulse Oximetry 98 Oxygen Delivery Method Room Air [facility] [place] - General Stated complaint: possible pink eye fluid in face Time Seen by Provider: 10/13/20 21:00 Mode of Arrival: Ambulatory Source of Information: Patient Limitations: No Limitations Description of Symptoms (Recalled from Triage Doc. by RN): PATIENT C/O REDNESS AND DRAINAGE FROM EYES X 4 DAYS HEENT Symptoms (Recalled from RN notes): Yes Resp Symptoms (Recalled from RN notes): No Skin Symptoms (Recalled from RN notes): No MS Symptoms (Recalled from RN notes): No Functional Status (Recalled from RN notes): WNL - History of Present Illness Provider Complaint: She c/o bilateral eye irritation and drainage for the past 4 days. She denies any possibility of eye injury or foreign body. She denies that her vision is affected other than all the drainage sticking her eyes together. She denies any fever or chills. - Related Data Home Medications Medication Instructions Recorded Confirmed clonazepam 1 mg tablet 0.5 mg PO BID tab 06/03/17 04/28/19 ethosuximide 250 mg capsule 250 mg PO QID cap 06/03/17 04/28/19 levothyroxine 175 mcg tablet 175 mcg PO ONCE 06/03/17 04/28/19 lisinopril 5 mg tablet 5 mg PO ONCE 06/03/17 04/28/19 paroxetine HCl 30 mg tablet 30 mg PO ONCE 06/03/17 04/28/19 simvastatin 40 mg tablet 40 mg PO QAM 06/03/17 04/28/19 Benzonatate [Tessalon Perle 100mg 100 mg PO TID 04/28/19 04/28/19 Cap] predniSONE [Prednisone 20mg 20 mg PO BID 04/28/19 04/28/19 Tab] Previous Rx's Medication Instructions Recorded Brompheniramine/Pseudoephed/Dm 5 ml PO Q6HP PRN #240 syrup 04/18/19 [Bromfed Dm Cough Syrup] Ibuprofen [Ibuprofen 600mg 600 mg PO Q6HP PRN #30 tab 04/18/19 Tablet] Ibuprofen [Ibuprofen 800mg 800 mg PO Q8HP PRN #30 tab 10/13/20 Tablet] Sulfacetamide Sodium [Bleph-10] 1 drp EYE-BOTH Q3H 7 Days #1 bottle 10/13/20 Allergies Allergy/AdvReac Type Severity Reaction Status Date / Time erythromycin base Allergy Mild Verified 04/28/19 10:48 [ERYTHROMYCIN BASE] Penicillins [PENICILLINS] Allergy Mild Verified 04/28/19 10:48 - Worker's Comp Is this a Worker's Comp case?: No [facility] History - Hepatitis A Screen Drug use history?: No High risk sexual behaviors?: No History of sexually transmitted infection?: No Currently employed?: No Childcare
[2020-10-13 21:27] VITALS: BP 148/96; PULSE 91; RESP 18; TEMP 36.8; O2SAT 98
== END 2020-10-13 21:40 | disposition home or self-care (01) ==
PROVIDERS: Emergency Provider Nurse Practitioner Family; PCP Pediatrics
DX: H10.33 Unspecified acute conjunctivitis, bilateral (principal); I10 Essential (primary) hypertension; E78.5 Hyperlipidemia, unspecified; F41.8 Other specified anxiety disorders; G40.909 Epilepsy, unspecified, not intractable, without status epilepticus; Z88.0 Allergy status to penicillin; Z79.899 Other long term (current) drug therapy
CPT/HCPCS: 99202; G0463

== ENCOUNTER → 2022-02-28 10:56 | Outpatient (CLI) | payer MEDICAID, SELFPAY ==
--- NOTE | 2022-02-28 11:23 | MR_ITS ---
FINAL REPORT CLINICAL HISTORY: seizure. migraine headache. 14ml prohance given. FINDINGS: Multiplanar MR imaging of the brain was performed without and with contrast. There is no evidence of intracranial hemorrhage or mass. No abnormal extra-axial fluid collection is seen. The ventricular size is within normal limits. There is no evidence of shift of the midline structures. The posterior fossa and brainstem have an unremarkable appearance. No area of abnormal restricted diffusion is identified. No abnormal contrast enhancement is seen. Normal major vessel vascular flow voids are noted. IMPRESSION: No acute intracranial abnormality identified. Reviewed, Interpreted and Dictated by Kevin Hernandez III, MD Transcribed by Rola Gibbs Authenticated and [facility]
[2022-02-28 12:12] LABS: Valproic Acid, (Depakene) 91.6 ug/ml (50-100)
[2022-02-28 13:14] LABS: Vitamin B12 652 pg/mL (239-931)
[2022-02-28 13:25] LABS: Folate 7.49 ng/mL
== END ==
PROVIDERS: PCP Nurse Practitioner; Visit Provider Nurse Practitioner Family
DX: R51.9 Headache, unspecified (principal); G89.29 Other chronic pain; F39 Unspecified mood [affective] disorder; R56.9 Unspecified convulsions; Z86.69 Personal history of other diseases of the nervous system and sense organs
CPT/HCPCS: 36415; 70553; 80164; 82607; 82746; A9576

== ENCOUNTER 2022-12-24 13:33 | Emergency (ER) | payer MEDICAID, SELFPAY ==
[2022-12-24 13:45] VITALS: BP 130/85; PULSE 68; RESP 18; TEMP 36.7; O2SAT 98; BMI 28.3
--- NOTE | 2022-12-24 14:00 | EXP.UTC ---
Discharge Plan Disposition Patient Disposition: Home, Self-Care Condition: Good Prescriptions Prescriptions: New doxycycline hyclate 100 mg tablet 100 mg PO BID 7 Days Qty: 14 0RF prednisone 10 mg tablet 10 mg PO BID 5 Days Qty: 10 0RF No Action lisinopril 5 mg tablet 5 mg PO ONCE simvastatin 40 mg tablet 40 mg PO QAM clonazepam 1 mg tablet 1 mg PO BID diclofenac sodium 75 mg tablet,delayed release (DR/EC) 75 mg PO DAILY PRN (Reason: Pain (Scale Score 1-3)) divalproex 500 mg tablet extended release 24 hr See Rx Instructions PO .COMPLEX Qty: 150 5RF Rx Instructions: 3 tablets (1500 mg) every morning and 2 tablets (1000 mg) q. evening, by mouth ethosuximide 250 mg capsule 500 mg PO BID 30 Days Qty: 120 5RF propranolol 20 mg tablet 40 mg PO BID 30 Days Qty: 120 5RF Ubrelvy 100 mg tablet 100 mg PO ONCE PRN (Reason: Headache ) Qty: 16 5RF Rx Instructions: Take 1 tablet at onset of headache, may repeat after 2 hours if symptoms persist. Max dose 2 tablets in 24 hours. cyclobenzaprine 10 mg tablet 10 mg PO TID PRN (Reason: Pain (Scale Score 1-3)) Patient Comments: TAKE 1 TABLET 3 TIMES EACH DAY NEEDED FOR MUSCLE SPASM levothyroxine 137 mcg tablet 137 mcg PO DAILY Patient Comments: TAKE 1 TABLET ONCE A DAY IN THE MORNING ON AN EMPTY STOMACH paroxetine HCl 10 mg tablet 10 mg PO DAILY Patient Comments: TAKE 1 TABLET 1 TIME EACH DAY IN THE MORNING Referrals Follow up/Referrals: Estefany Obregon APRN [Primary Care Provider] - See instructions Activity Restrictions/Add. Instructions Additional Instructions/Restrictions: *Monitor Temp, Over the counter Motrin or Tylenol as directed/as needed Tylenol every 4 hours and Motrin every 6 hours (as long as your family doctor has told you that you can take it) for fever or pain. and straight to ER if unable to lower temp less than 101.0 after medication given *Warm salt water gargles may help to soothe the throat *Throat Lozenges? *Warm fluids like tea with honey may help to soothe the throat? *Sleep elevated *Humidifier/Vaporizer *Flonase 2 sprays in each nostril daily but be aware that it may take 2-3 days before you notice improvement Follow up IMMEDIATELY for new or worsening symptoms or no Noticeable improvement over the next 48-72 hours. 911 for difficulty breathing or swallowing You were tested for today for Upper Respiratory Panel with COVID19 your test result should be back in the next 24 hours You may check your results on the [facility] [employer] Health Portal if your COVID test is positive you must Quarantine for 5 days per the CDC recommendations Clinical Impressions Clinical Impression: Sinusitis Qualifiers: Sinusitis location: unspecified location Chronicity: unspecified Qualified Code(s): J32.9 - Chronic sinusitis, unspecified Instructions Patient Instructions: DI for Sinusitis, Sinusitis, DI for Ear Pain-Adult Discharge ED Provider: Estella Mann [facility] [place] HPI General Stated complaint: chills, FERNANDES, chest congestion Mode of Arrival: Ambulatory Source of Information: Patient Limitations: No Limitations Time Seen by Provider: 12/24/22 14:02 Description of Symptoms (Recalled from Triage Doc. by RN): chills, aches, FERNANDES, and non-productive cough HEENT Symptoms (Recalled from RN notes): Yes Resp Symptoms (Recalled from RN notes): No Skin Symptoms (Recalled from RN notes): No MS Symptoms (Recalled from RN notes): No Functional Status (Recalled from RN notes): n/a History of Present Illness Provider Complaint: Patient states that she has been having pain in her left ear, chills, headache, sinus congestion and pressure and non productive cough States that she feels like she has a bad sinus infection or ear infection but wanted to get checked for COVID and flu too Related Data Home Medications Medication Instruction
[2022-12-24 14:14] LABS: UTC Influenza A Antigen Negative (Negative); UTC Influenza B Antigen Negative (Negative)
[2022-12-24 14:38] VITALS: BP 130/85; PULSE 68; RESP 18; TEMP 36.7; O2SAT 98
== END 2022-12-24 14:20 | disposition home or self-care (01) ==
PROVIDERS: Emergency Provider Nurse Practitioner; PCP Nurse Practitioner
DX: J01.90 Acute sinusitis, unspecified (principal); H92.02 Otalgia, left ear; F17.210 Nicotine dependence, cigarettes, uncomplicated; I10 Essential (primary) hypertension; G40.909 Epilepsy, unspecified, not intractable, without status epilepticus; F39 Unspecified mood [affective] disorder
CPT/HCPCS: 87635; 87804; 99212; 99214; G0463

== ENCOUNTER 2023-02-19 11:25 | Outpatient (CLI) | payer MEDICAID, SELFPAY ==
[2023-02-19 12:11] LABS: Anion Gap 7.9 mEq/L (5-15); Blood Urea Nitrogen 14 mg/dl (7-17); Calcium 8.6 mg/dl (8.4-10.2); Carbon Dioxide 25 mmol/L (22.0-30.0); Chloride 96 mmol/L (98-107); Estimated Glomerular Filt Rate 104 ml/min (>60); GFR (African American) 126 ML/MIN (>60); Glucose 92 mg/dl (74-100); Potassium 4.9 mmoL/L (3.5-5.1); Sodium 124 mmol/L (136-145)
== END 2023-02-19 23:59 ==
LOC: LAB 11:26
PROVIDERS: PCP Nurse Practitioner; Visit Provider Nurse Practitioner Family
DX: E87.1 Hypo-osmolality and hyponatremia (principal)
CPT/HCPCS: 80048

== ENCOUNTER 2023-02-24 16:00 | Emergency (ER) | payer MEDICAID, SELFPAY ==
[2023-02-24 16:06] VITALS: BP 137/89; PULSE 87; RESP 14; TEMP 36.7; O2SAT 98; BMI 27.8
--- NOTE | 2023-02-24 16:21 | ED_ITS ---
Discharge Plan Disposition Patient Disposition: Home, Self-Care Condition: Fair Prescriptions Prescriptions: New acbxpctx-oxlhjrwiat-bkzt-HC 3.5-400-10,000 mg-unit/g-1% ointment 1 applic ophthalmic (eye) BID 7 Days Qty: 3.5 0RF No Action lisinopril 5 mg tablet 5 mg PO ONCE simvastatin 40 mg tablet 40 mg PO QAM clonazepam 1 mg tablet 1 mg PO BID diclofenac sodium 75 mg tablet,delayed release (DR/EC) 75 mg PO DAILY PRN (Reason: Pain (Scale Score 1-3)) divalproex 500 mg tablet extended release 24 hr See Rx Instructions PO .COMPLEX Qty: 150 5RF Rx Instructions: 3 tablets (1500 mg) every morning and 2 tablets (1000 mg) q. evening, by mouth ethosuximide 250 mg capsule 500 mg PO BID 30 Days Qty: 120 5RF propranolol 20 mg tablet 40 mg PO BID 30 Days Qty: 120 5RF Ubrelvy 100 mg tablet 100 mg PO ONCE PRN (Reason: Headache ) Qty: 16 5RF Rx Instructions: Take 1 tablet at onset of headache, may repeat after 2 hours if symptoms persist. Max dose 2 tablets in 24 hours. sodium chloride 1,000 mg tablet,soluble 1,000 mg PO DAILY Qty: 30 0RF Rx Instructions: One tablet by mouth daily with repeat BMP in one week cyclobenzaprine 10 mg tablet 10 mg PO TID PRN (Reason: Pain (Scale Score 1-3)) Patient Comments: TAKE 1 TABLET 3 TIMES EACH DAY NEEDED FOR MUSCLE SPASM levothyroxine 137 mcg tablet 137 mcg PO DAILY Patient Comments: TAKE 1 TABLET ONCE A DAY IN THE MORNING ON AN EMPTY STOMACH paroxetine HCl 10 mg tablet 10 mg PO DAILY Patient Comments: TAKE 1 TABLET 1 TIME EACH DAY IN THE MORNING doxycycline hyclate 100 mg tablet 100 mg PO BID 7 Days Qty: 14 0RF prednisone 10 mg tablet 10 mg PO BID 5 Days Qty: 10 0RF Referrals Follow up/Referrals: Estefany Obregon APRN [Primary Care Provider] - See instructions Activity Restrictions/Add. Instructions Additional Instructions/Restrictions: Please follow-up with your PCP for recheck of your labs. Please use warm compresses on left eye multiple times per day. Please use eyedrops Clinical Impressions Clinical Impression: Hyponatremia Stye Qualifiers: Laterality: left Eyelid: lower Qualified Code(s): H00.015 - Hordeolum externum left lower eyelid Discharge ED Provider: Carson Crane General Adult HPI General Chief complaint: Recheck/Abnormal Lab/Rx Stated complaint: Abnormal labs Time Seen by Provider: 02/24/23 16:21 History of Present Illness HPI narrative: 53-year-old female with history of seizures on seizure medication presents with concern for hyponatremia. She had labs drawn last week with PCP and was noted to have a sodium of 124. Return to the ER for recheck of labs. She denies any significant symptoms at this time but does report mild intermittent headaches. Unrelatedly, patient reports that she was scratched in the face by a dog and wants to have her eyes checked out. She reports that she has no vision changes or eye pain. She reports that her lower eyelid is red and irritated. Related Data Home Medications Medication Instructions Recorded Confirmed lisinopril 5 mg tablet 5 mg PO ONCE BLOOD PRESSURE 06/03/17 02/19/23 simvastatin 40 mg tablet 40 mg PO QAM Cholesterol 06/03/17 02/19/23 clonazepam 1 mg tablet 1 mg PO BID Anxiety 01/29/22 02/19/23 diclofenac sodium 75 mg 75 mg PO DAILY PRN Pain (Scale 01/29/22 02/19/23 tablet,delayed release Score 1-3) cyclobenzaprine 10 mg tablet 10 mg PO TID PRN Pain (Scale Score 12/24/22 02/19/23 1-3) levothyroxine 137 mcg tablet 137 mcg PO DAILY 12/24/22 02/19/23 paroxetine HCl 10 mg tablet 10 mg PO DAILY 12/24/22 02/19/23 Previous Rx's Medication Instructions Recorded divalproex 500 mg tablet,extended See Rx Instructions PO .COMPLEX 09/18/22 release 24 hr #150 tabs ethosuximide 250 mg capsule 500 mg PO BID Seizure 30 days #120 09/18/22 caps propranolol 20 mg tablet 40 mg PO BID headache prevention 09/18/22 30 days #120 tabs ubrogepant 100 mg tablet (Ubrelvy) 100 mg PO ONCE PRN Headache 09/18/22 #16 tabs doxycycline hyclate 100 mg tablet 100 mg PO BID 7 days #14 tabs 12/24/22 prednisone 10 mg tablet 10 mg PO BID 5 days #10 tabs 12/24/22 sodium chloride 1,000 mg soluble 1,000 mg PO DAILY hyponatremia #30 02/20/23 tablet tabs yaolovuz-fsghsvhjvz-evdj-HC 3.5 1 applic ophthalmic (eye) BID 7 02/24/23 mg-400-10,000 unit/g-1 % eye days #3.5 grams ointment Allergies Allergy/AdvReac Type Severity Reaction Status Date / Time erythromycin base Allergy Mild Verified 02/19/23 10:38 [ERYTHROMYCIN BASE] Penicillins [PENICILLINS] Allergy Mild Verified 02/19/23 10:38 [facility] Disclaimer: The information contained in this section may have been updated after the patient was seen, as this information can be updated by other users. Medical History Chronic headaches Very few headaches with propanolol 40 mg p.o. twice daily without any intolerance or side effects. If Ubrelvy is taken immediately at onset of symptoms, headache resolves within 15-30 minutes. History of sleep apnea Mild IAN, AHI 11. History of CPAP intolerance. Patient is still not interested in reconsidering treatment options despite risks of untreated IAN. Hypertension Mood disorder Declined behavioral health referral. Managed by PCP with Paxil and clonazepam. Seizure Surgical History H/O thyroidectomy History of tubal ligation Family History Other Cancer Coronary artery disease Heart attack Hyperlipidemia Hypertension Kidney disease Stroke Social History Smoking Status: Current every day smoker tobacco type: cigarettes packs per day: 30 alcohol intake: never substance use type: denies use current occupational status: other Travel in the last 8 weeks: None household members: none housing: house marital status: single current occupational exposures/hazards: No caffeine: No ROS Obtained: Yes All systems reviewed & no additional complaints except as documented Physical Exam General General appearance: alert and in no apparent distress Head Head exam: atraumatic and normocephalic Eye Eye exam: Present PERRL, EOMI and other (Stye noted on the left inferior eyelid. No conjunctival injection, pupils equal round reactive, normal vision) ENT ENT exam: Present normal oropharynx and normal external ear exam Neck Neck exam: Present normal inspection and full ROM Chest Chest inspection: Present normal inspection and symmetric chest wall rise; Absent tenderness Respiratory Respiratory exam: Present normal lung sounds bilaterally; Absent respiratory distress Cardiovascular Cardiovascular exam: Present regular rate and normal rhythm Abdominal Exam Abdominal exam: Present soft; Absent distention, tenderness or guarding Extremities Exam Extremities exam: Present normal inspection; Absent edema or joint swelling Back Exam Back exam: Present normal inspection; Absent tenderness Neurological Exam Neurological exam: Present alert and oriented X3; Absent motor sensory deficit Psychiatric Psychiatric exam: Present normal affect and normal mood Skin Skin exam: Present warm, dry and normal color Lymphatic Lymphatic Findings: no adenopathy Medical Decision Making Medical Records Medical records reviewed: Yes I reviewed the patient's medical records. Mark Inquiry Pt receiving controlled substance: No Mark was queried for this patient: No Vital Signs: 02/24/23 16:06 02/24/23 18:09 Temperature 98.0 F 98.0 F Temperature Source Oral Pulse Rate 80 Pulse Rate [Left Radial] 87 Respiratory Rate 14 16 Blood Pressure 123/79 Blood Pressure [Right Arm] 137/89 Blood Pressure Mean [Right Arm] 105 02 Sat by Pulse Oximetry 98 Lab Data Lab results reviewed: Yes I reviewed the patient's lab results. Lab Results 02/24/23 16:36: Urine Color Yellow, Urine Appearance Clear, Urine pH 7.0, Ur Specific [place] 1.015, Urine Protein Negative, Urine Glucose (UA) Negative, Urine Ketones Negative, Urine Blood Trace-i, Urine Nitrate Negative, Urine Bilirubin Negative, Urine Urobilinogen 0.2, Ur Leukocyte Esterase Negative, Urine RBC None, Urine WBC None, Ur Squamous Epith Cells None, Urine Bacteria None 02/24/23 16:45: WBC 9.2, RBC 4.60, Hgb 15.3, Hct 44.3, MCV 96.3, MCH 33.2 H, MCHC 34.5, RDW 14.0, Plt Count 278, MPV 8.1, Neut % (Auto) 49.4, Lymph % (Auto) 40.6, [place] % (Auto) 7.8, Eos % (Auto) 1.3, Baso % (Auto) 0.8, Neut # (Auto) 4.6, Lymph # (Auto) 3.7, [place] # (Auto) 0.7, Eos # (Auto) 0.1, Baso # (Auto) 0.1, Sodium 129 L, Potassium 4.5, Chloride 96 L, Carbon Dioxide 27, Anion Gap 10.5, BUN 15, Creatinine 0.60, Estimated Creat Clear 124, Estimated GFR 104, Est GFR ( Amer) 126, Glucose 96, Calcium 8.9, Total Bilirubin 0.3, AST 26, ALT 16, Alkaline Phosphatase 62, Total Protein 7.1, Albumin 4.1, Globulin 3.0, Albumin/Globulin Ratio 1.4 02/24/23 16:45 02/24/23 16:45 Orders (Tests/Meds): ED MEDICATIONS Discontinued Medications Generic Name Dose Route Start Last Admin Trade Name Freq PRN Reason Stop Dose Admin Neomycin/Polymyxin/Hydrocortisone 10 ml 02/24/23 17:54 Ceyazizk-Jdroeejlc-Li Otic Susp 10ml OT 02/24/23 17:55 ONCE ONE Sodium Chloride 10 ml 02/24/23 16:48 Sodium Chloride 0.9% 10ml Flush Syringe IV 03/26/23 16:47 NEEDED PRN Maintain IV Site ORDERS Category Date Time Status CBC w/Auto Diff [Complete Blood Count Auto Diff] Stat Lab 02/24/23 16:45 Completed CMP [Comprehensive Metabolic Panel] Stat Lab 02/24/23 16:45 Completed UA [Urinalysis and Microscopic] Stat Lab 02/24/23 16:36 Completed Medical Decision Narrative: 53-year-old female with history of seizures, well-controlled on seizure medication presents with concern for hyponatremia based on labs drawn within the last week. Sodium at that time 124.. History was obtained via conversation with patient, chart review. On arrival, patient is [afebrile, hemodynamically stable, satting appropriately, alert, oriented x4, GCS 15], moving all extremities spontaneously. Full physical exam performed and significant for stye of the left inferior eyelid without evidence of ocular trauma. Differential includes but is not limited to stye, hyponatremia. Workup initiated including CBC CMP UA urine electrolytes. On re-evaluation, patient [remains afebrile, HD stable.] Laboratory workup independently interpreted by me and significant for mild hyponatremia with sodium 129. This is up 5 points from blood work 5 days ago. I considered admission, but given it is improving spontaneously, given she is asymptomatic, I do not think that this necessitates admission at this time. Encouraged to follow-up with PCP for reassessment. Return precautions given. She was given eye ointment for stye and encouraged to use warm compresses. Procedures Risk/Benefits of Procedure(s) Were Explained: Yes Critical Care Critical Care Time Critical Care Time: No
--- NOTE | 2023-02-24 16:39 | PC.NURSE ---
Kip in LAB advised there was only enough urine collected to do UA
[2023-02-24 16:42] LABS: Microscopic, Urine URINE MICROSCOPIC (MICROSCOPIC)
[2023-02-24 17:02] LABS: Basophils # 0.1 K/mm3 (0-0.2); Basophils % 0.8 % (0.1-2.0); Eosinophils # 0.1 K/mm3 (0.0-0.4); Eosinophils % 1.3 % (0.1-12.0); Hematocrit 44.3 % (37.0-47.0); Hemoglobin 15.3 g/dL (12.2-16.2); Lymphocytes # 3.7 K/mm3 (0.7-4.5); Lymphocytes % 40.6 % (10-50); Mean Corpuscular HGB Conc 34.5 g/dL (31.8-35.4); Mean Corpuscular Hemoglobin 33.2 pg (27.0-31.2); Mean Corpuscular Volume 96.3 fl (81-99); Mean Platelet Volume 8.1 fl (7.4-10.4); Monocytes # 0.7 K/mm3 (0.1-1.0); Monocytes % 7.8 % (1.7-9.3); Neutrophils # 4.6 K/mm3 (1.8-7.8); Neutrophils % 49.4 % (37.0-80.0); Platelet Count 278 K/mm3 (142-424); White Blood Count 9.2 K/mm3 (4.8-10.8)
[2023-02-24 17:06] LABS: Chloride 96 mmol/L (98-107); Potassium 4.5 mmoL/L (3.5-5.1); Sodium 129 mmol/L (136-145)
[2023-02-24 17:09] LABS: Alanine Aminotransferase 16 U/L (12-78); Albumin Level 4.1 g/dl (3.5-5.0); Albumin/Globulin Ratio 1.4 (1.1-1.8); Alkaline Phosphatase 62 U/L (38-126); Anion Gap 10.5 mEq/L (5-15); Aspartate Amino Transferase 26 U/L (14-36); Bilirubin,Total 0.3 mg/dl (0.2-1.3); Blood Urea Nitrogen 15 mg/dl (7-17); Carbon Dioxide 27 mmol/L (22.0-30.0); Creatinine Clearance Estimated 124 mL/min (50-200); Estimated Glomerular Filt Rate 104 ml/min (>60); GFR (African American) 126 ML/MIN (>60); Total Protein,Serum 7.1 g/dl (6.3-8.2)
[2023-02-24 17:10] LABS: Calcium 8.9 mg/dl (8.4-10.2); Glucose 96 mg/dl (74-100)
--- NOTE | 2023-02-24 17:29 | PC.NURSE ---
Pt voiced no needs at this time. Call light within reach.
[2023-02-24 17:37] LABS: Appearance,Urine CLEAR (Clear); Bilirubin,Urine Negative (Negative); Blood, Urine TRACE-I (Negative); Color,Urine YELLOW (Yellow); Glucose,Urine (UA) Negative (Negative); Ketones,Urine Negative (Negative); Leukocyte Esterase,Urine Negative (Negative); Nitrate,Urine Negative (Negative); Protein,Urine Negative (Negative); Specific Gravity, Urine 1.015 (1.005-1.030); Urobilinogen,Urine 0.2 EU/dl (0.2)
[2023-02-24 18:09] VITALS: BP 123/79; PULSE 80; RESP 16; TEMP 36.7
== END 2023-02-24 18:09 | disposition home or self-care (01) ==
PROVIDERS: Emergency Provider Emergency Medicine; PCP Nurse Practitioner
DX: E87.1 Hypo-osmolality and hyponatremia (principal); R51.9 Headache, unspecified; H00.015 Hordeolum externum left lower eyelid; I10 Essential (primary) hypertension; F17.210 Nicotine dependence, cigarettes, uncomplicated
CPT/HCPCS: 80053; 81001; 85025; 99284

== ENCOUNTER 2024-12-29 12:36 | Emergency (ER) | payer MEDICARE, MEDICAID, SELFPAY ==
[2024-12-29 12:40] VITALS: BP 137/81; PULSE 87; RESP 21; TEMP 36.7; O2SAT 98; BMI 31.4
--- OUTSIDE RECORDS SUMMARY | 2024-12-29 12:56 | XMS_ITS | Continuity of Care Document ---
Author Organization [place] - [employer] [facility] Address [address] [place] [address] Care Team Providers Care Printed Products Assembler Name Role Phone CYNDEE ESTEFANY Primary Care Provider Unavailabl e Assessment No assessment recorded. Plan of Treatment Reminders Order Date Submit Date Provider Last Modified By Organization Details Last Modified Time Details Appointments FOLLOW UP 15 2024 04:45P M Zuhair Obregon APRN Not available Not available Not available FOLLOW UP 30 2024 11:30A M Zuhair Obregon APRN Not available Not available Not available TRANSP ORTATI ON 2024 11:00A M Transporter Not available Not available Not available Lab None record ed. Referral None record ed. Procedures None record ed. Surgeries None record ed. Imaging None record ed. Medication Orders predni sone 20 mg tablet 2024 025 [employer], [address] [place] [address], [id number], 12/27/2024 05:02:33 cefdin ir 300 mg capsul e 2024 025 [employer], [address] [place] [address], [id number], 12/17/2024 14:04:39 Patient TargetsNo targets recorded. Patient InstructionsNo instructions recorded. Reason for Referral None Reported. Results Created Date Observation Date Name Description Value Unit Range Abnormal Flag Note LastModifiedBy Organization Detail LastModifiedTime 11/19/19 25 11/19/2024 TSH+F REE T4 TSH 4.370 uIU/m L 0.450- 4.500 normal Not Available [facility] ([facility]) [address] [place], [address], 11/19/2024 10:07:57 11/19/19 25 11/19/2024 TSH+F REE T4 T4,free(dire ct) 1.38 NG/dL 0.82-1 .77 normal Not Available [facility] ([facility]) [address] [place], [address], 11/19/2024 10:07:57 11/19/1911/19/2024 CBC WITH DIFFE RENTI AL/PL ATELE T WBC 8.1 x10e3 /uL 3.4-10 .8 normal Not Available [facility] ([facility]) [address] [place], [address], 11/19/2024 10:07:58 11/19/1911/19/2024 CBC WITH DIFFE RENTI AL/PL ATELE T RBC 4.68 x10e6 /uL 3.77-5 .28 normal Not Available [facility] ([facility]) [address] [place], [address], 11/19/2024 10:07:58 11/19/19 25 11/19/2024 CBC WITH DIFFE RENTI AL/PL ATELE T hemoglobin 15.0 g/dL 11.1-1 5.9 normal Not Available [facility] ([facility]) [address] [place], [address], 11/19/2024 10:07:58 11/19/1911/19/2024 CBC WITH DIFFE RENTI AL/PL ATELE T hematocrit 46.4 % 34.0-4 6.6 normal Not Available [facility] ([facility]) [address] [place], [address], 11/19/2024 10:07:58 11/19/1911/19/2024 CBC WITH DIFFE RENTI AL/PL ATELE T MCV 99 fL 79-97 above high normal Not Available [facility] ([facility]) [address] [place], [address], 11/19/2024 10:07:58 11/19/19 25 11/19/2024 CBC WITH DIFFE RENTI AL/PL ATELE T MCH 32.1 pg 26.6-3 3.0 normal Not Available [facility] ([facility]) [address] [place], [address], 11/19/2024 10:07:58 11/19/1911/19/2024 CBC WITH DIFFE RENTI AL/PL ATELE T MCHC 32.3 g/dL 31.5-3 5.7 normal Not Available [facility] ([facility]) [address] [place], [address], 11/19/2024 10:07:58 11/19/1911/19/2024 CBC WITH DIFFE RENTI AL/PL ATELE T RDW 12.4 % 11.7-1 5.4 Not Available [facility] ([facility]) [address] [place], [address], 11/19/2024 10:07:58 11/19/19 25 11/19/2024 CBC WITH DIFFE RENTI AL/PL ATELE T platelets 234 x10e3 /uL 150-45 0 normal Not Available [facility] ([facility]) [address] [place], [address], 11/19/2024 10:07:58 11/19/19 25 11/19/2024 CBC WITH DIFFE RENTI AL/PL ATELE T neutrophils 39 % not estab. normal Not Available [facility] ([facility]) [address] [place], [address], 11/19/2024 10:07:58 11/19/19 25 11/19/2024 CBC WITH DIFFE RENTI AL/PL ATELE T lymphs 46 % not estab. normal Not Available [facility] ([facility]) [address], [place], [address], 11/19/2024 10:07:58 11/19/19 25 11/19/2024 CBC WITH DIFFE RENTI AL/PL ATELE T monocytes 12 % not estab. normal Not Available [facility] ([facility]) [address], [place], [address], 11/19/2024 10:07:58 11/19/19 25 11/19/2024 CBC WITH DIFFE RENTI AL/PL ATELE T eos 2 % not estab. normal Not Available [facility] ([facility]) [address], [place], [address], 11/19/2024 10:07:58 11/19/19 25 11/19/2024 CBC WITH DIFFE RENTI AL/PL ATELE T basos 1 % not estab. normal Not Available [facility] ([facility]) [address], [place], [address], 11/19/2024 10:07:58 11/19/19 25 11/19/2024 CBC WITH DIFFE RENTI AL/PL ATELE T immature cells DRY KILN BURNER Not Available [facility] ([facility]) [address] [place], [address], 11/19/2024 10:07:58 11/19/19 25 11/19/2024 CBC WITH DIFFE RENTI AL/PL ATELE T neutrophils (absolute) 3.2 x10e3 /uL 1.4-7. 0 normal Not Available [facility] ([facility]) [address] [place], [address], 11/19/2024 10:07:58 11/19/19 25 11/19/2024 CBC WITH DIFFE RENTI AL/PL ATELE T lymphs (absolute) 3.8 x10e3 /uL 0.7-3. 1 above high normal Not Available [facility] ([facility]) [address], [place], [address], 11/19/2024 10:07:58 11/19/19 25 11/19/2024 CBC WITH DIFFE RENTI AL/PL ATELE T monocytes(ab solute) 1.0 x10e3 /uL 0.1-0. 9 above high normal Not Available [facility] ([facility]) [address] [place], [address], 11/19/2024 10:07:58 11/19/19 25 11/19/2024 CBC WITH DIFFE RENTI AL/PL ATELE T eos (absolute) 0.1 x10e3 /uL 0.0-0. 4 normal Not Available [facility] ([facility]) [address], [place], [address], 11/19/2024 10:07:58 11/19/19 25 11/19/2024 CBC WITH DIFFE RENTI AL/PL ATELE T baso (absolute) 0.1 x10e3 /uL 0.0-0. 2 normal Not Available [facility] ([facility]) [address], [place], [address], 11/19/2024 10:07:58 11/19/19 25 11/19/2024 CBC WITH DIFFE RENTI AL/PL ATELE T immature granulocytes 0 % not estab. Not Available [facility] ([facility]) [address] [place], [address], 11/19/2024 10:07:58 11/19/19 25 11/19/2024 CBC WITH DIFFE RENTI AL/PL ATELE T immature grans (abs) 0.0 x10e3 /uL 0.0-0. 1 Not Available [facility] ([facility]) [address], [place], [address], 11/19/2024 10:07:58 11/19/19 25 11/19/2024 CBC WITH DIFFE RENTI AL/PL ATELE T NRBC DRY KILN BURNER Not Available [facility] ([facility]) [address], [place], [address], 11/19/2024 10:07:58 11/19/19 25 11/19/2024 CBC WITH DIFFE RENTI AL/PL ATELE T hematology comments: DRY KILN BURNER Not Available [facility] ([facility]) [address], [place], [address], 11/19/2024 10:07:58 11/19/19 25 11/19/2024 COMP. METAB OLIC PANEL (14) glucose 88 mg/dL 70-99 normal Not Available [facility] ([facility]) [address], [place], [address], 11/19/2024 10:07:59 11/19/19 25 11/19/2024 COMP. METAB OLIC PANEL (14) BUN 15 mg/dL 6-24 normal Not Available [facility] ([facility]) [address], [place], [address], 11/19/2024 10:07:59 11/19/19 25 11/19/2024 COMP. METAB OLIC PANEL (14) creatinine 0.59 mg/dL 0.57-1 .00 normal Not Available [facility] ([facility]) [address], [place], [address], 11/19/2024 10:07:59 11/19/19 25 11/19/2024 COMP. METAB OLIC PANEL (14) eGFR 106 mL/mi n/1.7 3 >59 normal Not Available [facility] ([facility]) [address] [place], [address], 11/19/2024 10:07:59 11/19/19 25 11/19/2024 COMP. METAB OLIC PANEL (14) BUN/creatini ne ratio 25 9-23 above high normal Not Available [facility] ([facility]) [address] [place], [address], 11/19/2024 10:07:59 11/19/19 25 11/19/2024 COMP. METAB OLIC PANEL (14) sodium 133 mmol/ L 134-14 4 below low normal Not Available [facility] ([facility]) [address] [place], [address], 11/19/2024 10:07:59 11/19/19 25 11/19/2024 COMP. METAB OLIC PANEL (14) potassium 4.6 mmol/ L 3.5-5. 2 normal Not Available [facility] ([facility]) [address] [place], [address], 11/19/2024 10:07:59 11/19/19 25 11/19/2024 COMP. METAB OLIC PANEL (14) chloride 99 mmol/ L 96-106 normal Not Available [facility] ([facility]) [address] [place], [address], 11/19/2024 10:07:59 11/19/1911/19/2024 COMP. METAB OLIC PANEL (14) carbon dioxide, total 19 mmol/ L 20-29 below low normal Not Available [facility] ([facility]) [address] [place], [address], 11/19/2024 10:07:59 11/19/19 25 11/19/2024 COMP. METAB OLIC PANEL (14) calcium 9.1 mg/dL 8.7-10 .2 normal Not Available [facility] ([facility]) [address] [place], [address], 11/19/2024 10:07:59 11/19/19 25 11/19/2024 COMP. METAB OLIC PANEL (14) protein, total 6.7 g/dL 6.0-8. 5 normal Not Available [facility] ([facility]) [address] [place], [address], 11/19/2024 10:07:59 11/19/19 25 11/19/2024 COMP. METAB OLIC PANEL (14) albumin 4.2 g/dL 3.8-4. 9 normal Not Available [facility] ([facility]) [address], [place], [address], 11/19/2024 10:07:59 11/19/19 25 11/19/2024 COMP. METAB OLIC PANEL (14) globulin, total 2.5 g/dL 1.5-4. 5 Not Available [facility] ([facility]) [address] [place], [address], 11/19/2024 10:07:59 11/19/19 25 11/19/2024 COMP. METAB OLIC PANEL (14) bilirubin, total <0.2 mg/dL 0.0-1. 2 Not Available [facility] ([facility]) [address], [place], [address], 11/19/2024 10:07:59 11/19/19 25 11/19/2024 COMP. METAB OLIC PANEL (14) alkaline phosphatase 65 IU/L 49-135 normal Not Available [facility] ([facility]) [address] [place], [address], 11/19/2024 10:07:59 11/19/19 25 11/19/2024 COMP. METAB OLIC PANEL (14) AST (SGOT) 14 IU/L 0-40 normal Not Available [facility] ([facility]) [address], [place], [address], 11/19/2024 10:07:59 11/19/19 25 11/19/2024 COMP. METAB OLIC PANEL (14) ALT (SGPT) 9 IU/L 0-32 normal Not Available [facility] ([facility]) [address] [place], [address], 11/19/2024 10:07:59 11/19/19 25 11/19/2024 LIPID PANEL cholesterol, total 185 mg/dL 100-19 9 normal Not Available [facility] ([facility]) [address], [place], [address], 11/19/2024 10:08:00 11/19/19 25 11/19/2024 LIPID PANEL triglyceride s 85 mg/dL 0-149 normal Not Available [facility] ([facility]) [address], [place], [address], 11/19/2024 10:08:00 11/19/19 25 11/19/2024 LIPID PANEL HDL cholesterol 86 mg/dL >39 normal Not Available [facility]) [address], [place], [address], 11/19/2024 10:08:00 11/19/19 25 11/19/2024 LIPID PANEL VLDL cholesterol shalonda 15 mg/dL 5-40 Not Available [facility] ([facility]) [address], [place], [address], 11/19/2024 10:08:00 11/19/19 25 11/19/2024 LIPID PANEL LDL chol calc ([facility]) 84 mg/dL 0-99 Not Available [facility]) [address], [place], [address], 11/19/2024 10:08:00 11/19/1911/19/2024 LIPID PANEL LDL calc comment: DRY KILN BURNER Not Available [facility] ([facility]) [address], [place], [address], 11/19/2024 10:08:00 11/19/19 25 11/19/2024 VITAM IN B12 AND FOLAT E vitamin B12 628 pg/mL 232-12 45 normal Not Available [facility] ([facility]) [address], [place], [address], 11/19/2024 10:08:00 11/19/19 25 11/19/2024 VITAM IN B12 AND FOLAT E folate (folic acid), serum 9.3 NG/mL >3.0 normal A serum folat e bassem ntrat ion of less than 3.1 ng/mL is consi dered to repre sent clini shalonda defic iency . Not Available [facility] ([facility]) [address], [place], [address], 11/19/2024 10:08:00 11/19/19 25 11/19/2024 HCV ANTIB DARIELA RFX TO QUANT PCR HCV Ab Non Reacti ve non reacti ve Not Available [facility] ([facility]) [address], [place], [address], 11/19/2024 10:08:01 11/19/1911/19/2024 HCV ANTIB DARIELA RFX TO QUANT PCR interpretati on: Commen t Not infec shania with HCV unles s early or acute infec tion is suspe cted (whic h may be delay ed in an immun ocomp romis ed indiv idual ), or other evide nce exist s to indic ate HCV infec tion. Not Available [facility] ([facility]) [address], [place], [address], 11/19/2024 10:08:01 11/19/1911/19/2024 HEMOG LOBIN A1C hemoglobin A1C 5.1 % 4.8-5. 6 normal Predi abete s: 5.7 - 6.4 Diabe blank: >6.4 Glyce beatriz contr ol for adult s with diabe blank: <7.0 Not Available [facility] ([facility]) [address], [place], [address], 11/19/2024 10:08:02 11/19/19 25 11/19/2024 VITAM IN D, 25-HY DROXY vitamin D, 25-hydroxy 30.8 NG/mL 30.0-1 00.0 Vitam in D defic iency has been defin ed by the Insti tute of Medic ine and an Endoc rine Socie ty pract ice guide line as a level of serum 25-OH vitam in D less than 20 ng/mL (1,2) . The Endoc rine Socie ty went on to furth er defin e vitam in D insuf ficie ncy as a level betwe en 21 and 29 ng/mL (2). 1. IOM (Inst itute of Medic ine). 2010. Dieta ry refer ence intak es for calci um and D. Foreign wong [place]: The [facility] . 2. Camille schofield MF, Meli maher [place], Matt off-F errar i FERNANDES, et al. Evalu ation , treat ment, and preve ntion of vitam in D defic iency : an Endoc rine Socie ty clini shalonda pract ice guide line. JCEM. 2010; 96(7) :1911 -30. Not Available [facility] ([facility]) [address], [place], [address], 11/19/2024 10:08:02 11/19/1911/19/2024 HIV AB/P2 4 AG WITH REFLE X HIV Ab/P24 Ag screen Non Reacti ve non reacti ve HIV-1 /HIV- 2 antib odies and HIV-1 p24 antig en were NOT detec shania. There is no labor atory evide nce of HIV infec tion. HIV Negat baljinder Not Available [facility] ([facility]) [address], [place], [address], 11/19/2024 10:08:03 11/19/1911/18/2024 urina lysis , dipst ick Leukocytes Trace Not Available [address], [address], 11/18/2024 14:29:40 11/19/19 25 11/18/2024 urina lysis , dipst ick Nitrite negati ve Not Available [address] [place], [address], 11/18/2024 14:29:40 11/19/1911/18/2024 urina lysis , dipst ick Urobilinogen .2 Not Available [address], [address], 11/18/2024 14:29:40 11/19/1911/18/2024 urina lysis , dipst ick Protein Negati ve Not Available [address], [address], 11/18/2024 14:29:40 11/19/1911/18/2024 urina lysis , dipst ick pH 8.0 Not Available [address], [address], 11/18/2024 14:29:40 11/19/1911/18/2024 urina lysis , dipst ick Blood Modera te Not Available [address], [address], 11/18/2024 14:29:40 11/19/1911/18/2024 urina lysis , dipst ick Specific [place] 1.020 Not Available [address], [address], 11/18/2024 14:29:40 11/19/1911/18/2024 urina lysis , dipst ick Ketone Small Not Available [address], [address], 11/18/2024 14:29:40 11/19/1911/18/2024 urina lysis , dipst ick Bilirubin Negati ve Not Available [address] [place], [address], 11/18/2024 14:29:40 11/19/1911/18/2024 urina lysis , dipst ick Glucose Negati ve Not Available [address], [address], 11/18/2024 14:29:40 11/19/1911/18/2024 urina lysis , dipst ick Appearance Clear Not Available [address], [address], 11/18/2024 14:29:40 11/19/1911/18/2024 urina lysis , dipst ick Color Dark Yellow Not Available [address], [address], 11/18/2024 14:29:40 Result Notes None recorded. 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 08:35:10 Body mass index 25-29 - overweig ht 475148969 Completed 202004/16/2021 Problem Code: Z68.28; Problem Code Type: ICD-10; Not Available [facility] 21:08:22 Myositis 43701154 Completed 202101/14/2022 Problem Code: M60.9; Problem Code Type: ICD-10; JUDITH garcia, [employer] 2 08:35:10 Cough 64150126 Completed 202101/14/2022 Problem Code: R05; Problem Code Type: ICD-10; Sejal Guardado null, [employer] 4 10:57:58 Disorder of upper respirat ory system 309148410 Completed 202108/24/2021 Problem Code: J06.9; Problem Code Type: ICD-10; Not Available [facility] 2 21:08:21 Wheezing 66060682 Completed 202101/14/2022 Problem Code: R06.2; Problem Code Type: ICD-10; JUDITH garcia, [employer] 2 08:35:10 Neck pain 58158335 Completed 202101/14/2022 JUDITH AMAYA null, [employer] 2 08:35:10 Acute low back pain 093760420 Completed 202101/14/2022 JUDITH AMAYA Zmanda, [employer] 2 08:35:10 Tingling of skin 178971995 Completed 202101/14/2022 Problem Code: R20.2; Problem Code Type: ICD-10; JUDITH garcia, [employer] 2 08:35:10 Body mass index 25-29 - overweig ht 445725172 Active 2021 Problem Code: Z68.25; Problem Code Type: ICD-10; Not Available [facility] 2 21:08:22 Anxiety 26513718 Active 2022 JUDITH garcia, [employer] 3 10:13:33 Postmeno pausal bleeding 26277414 Active 2023 Young Rpap II, MD [address] [place] [address], [address] , [employer]. 4 11:41:09 Abnormal uterine bleeding 66413377679 100 Active 2023 Young Rapp II, MD [address] [place] [address], [address] , [employer] 4 10:06:02 Long-ter m drug therapy Active 2023 Sejal garcia, [employer]. 4 11:25:20 Cough 00883283 Active 2023 Problem Code: R05; Problem Code Type: ICD-10; Sejal garcia, [employer]. 4 10:57:58 Hyperlip idemia 60832593 Active 2024 Sejal garcia, [employer] 5 14:18:37 Acute cough Active 2024 Sejal Guardado Zmanda, [employer] 5 09:48:45 Depressi ve disorder 37503956 Active 2024 Sejal Guardado null, [employer] 5 10:11:24 Fatigue 24344102 Active 2024 Sejal garcia, [employer] 5 14:18:37 Hypergly cemia 06625485 Active 2024 Sejal Guardado Zmanda, [employer] 5 14:18:37 Problem Notes None recorded. Procedures Surgical History Date Name Laterality Status Provider Name and Address Organization Details Recorded Time 10/03/19 24 HYSTEROSCOPIC TISSUE REMOVAL (SURG) completed SANDRA REDDY [employer]. 10/03/2023 10:20:16 05/05/19 24 Date of Last Pap Smear completed RIANNA GIBSON [employer]. 08/26/2023 14:06:18 01/27/20 21 ligation of bilateral fallopian tubes completed Not Available [facility] 10/23/2021 22:56:08 thyroidectomy completed RIANNA GIBSON [employer] 09/15/2023 11:15:28 Breast Biopsy completed Sejal Guardado [employer] 09/20/2024 10:47:29 Tonsillectomy completed Seajl Guardado [employer] 09/20/2024 10:47:29 Imaging Results None recorded. Procedure Notes None recorded. Medical Equipment None Reported. Allergies Allergen ID Allergen Name Allergen Category Reaction Reaction Severity Criticality Documentation Date Start Date Code Code System Note Provider Name and Address Organization Details Recorded Time 54597 Product containin g penicilli n (product) medicatio n rash Not available Not available 05/01/2023 [id number] 8001 SNOMED Kasey garcia [employer] 10:52:22 Medications Name Sig Start Date Stop Date Status Note LastModified by Organization Details LastModified Time celecoxib 200 mg capsule TAKE 1 CAPSULE 1 TIME EACH DAY 01/14 completed Not Available Not Available Not Available cyclobenza aristides 10 mg tablet TAKE 1 TABLET 3 TIMES EACH DAY NEEDED active Not Available Not Available No t Available amoxicilli n 500 mg capsule TAKE 1 CAPSULE 2 TIMES EACH DAY FOR 10 DAYS 05/03 completed Not Available Not Available Not Available levothyrox ine 175 mcg tablet TAKE 1 TABLET BY MOUTH EVERY DAY 01/14 completed Not Available Not Available Not Available promethazi ne-DM 6.25 mg-15 mg/5 mL oral syrup TAKE 5 ML (1 TEASPOONF UL) EVERY 4 HOURS NEEDED FOR COUGH active Not Available Not Available No t Available neomycin-p olymyxin-h ydrocort 3.5 mg/mL-10,0 00 unit/mL-1 % ear solution PLACE 4 DROPS INTO THE AFFECTED EAR(S) 3 TIMES EACH DAY 08/10 completed Not Available Not Available Not Available levothyrox ine 137 mcg tablet TAKE 1 TABLET ONCE A DAY IN THE MORNING ON AN EMPTY STOMACH active Not Available Not Available No t Available prednisone 10 mg tablet TAKE 1 TABLET 3 TIMES EACH DAY FOR 3 DAYS 04/01 completed Not Available Not Available Not Available paroxetine 10 mg tablet TAKE 1 TABLET 1 TIME EACH DAY IN THE MORNING active Not Available Not Available No t Available trazodone 50 mg tablet TAKE 1 TABLET 1 TIME EACH DAY AT BEDTIME 07/17 completed Not Available Not Available Not Available azithromyc in 250 mg tablet TAKE 2 TABLETS ON THE FIRST DAY, THEN TAKE 1 TABLET EACH DAY ON THE NEXT 4 DAYS. active Not Available Not Available No t Available benzonatat e 200 mg capsule TAKE 1 CAPSULE 3 TIMES EACH DAY NEEDED FOR COUGH 11/18 completed Not Available Not Available Not Available ethosuximi de 250 mg capsule TAKE 2 CAPSULES 2 TIMES EACH DAY FOR SEIZURE active Not Available Not Available No t Available sumatripta n 100 mg tablet TAKE 1 TABLET AT START OF HEADACHE. MAY TAKE ANOTHER TABLET IN 2 HOURS IF NEEDED. DO NOT TAKE MORE THAN 2 TABLETS IN 24 HOURS. 01/14 completed Not Available Not Available Not Available prednisone 20 mg tablet Take 1 tablet 3 times a day by oral route for 3 days. 12/27 completed Not Available Not Available Not Available medroxypro gesterone 5 mg tablet TAKE 2 TABLETS EVERY 4 HOURS UNTIL BLEEDING STOPS. THEN, TAKE 2 TABLETS 1 TIME EACH DAY 02/02 completed obgyn Not Available Not Available Not Available rizatripta n 10 mg tablet TAKE 1 TABLET 1 TIME EACH DAY NEEDED FOR BREAKTHRO UGH MIGRAINE 03/17 completed neuro Not Available Not Available Not Available prednisone 5 mg tablet TAKE 4 TABLETS 3 TIMES EACH DAY FOR 3 DAYS 11/18 completed Not Available Not Available Not Available clonazepam 1 mg tablet TAKE 1 TABLET 1 TIME EACH DAY active Not Available Not Available No t Available metronidaz ole 500 mg tablet TAKE 1 TABLET 2 TIMES EACH DAY FOR 7 DAYS 10/15 completed Not Available Not Available Not Available levofloxac in 250 mg tablet TAKE 1 TABLET 1 TIME EACH DAY FOR 10 DAYS 10/15 completed Not Available Not Available Not Available acyclovir 400 mg tablet TAKE 1 TABLET EVERY 8 HOURS FOR 10 DAYS active Not Available Not Available No t Available divalproex 500 mg tablet,del ayed release 08/03 completed Not Available Not Available Not Available simvastati n 40 mg tablet TAKE 1 TABLET 1 TIME EACH DAY IN THE EVENING active Not Available Not Available No t Available ketorolac 10 mg tablet TAKE 1 TABLET EVERY 8 HOURS FOR UP TO 5 DAYS 09/10 completed Not Available Not Available Not Available famotidine 20 mg tablet TAKE 1 TABLET EVERY 12 HOURS FOR 5 DAYS active neuro Not Available Not Available No t Available benzonatat e 100 mg capsule TAKE 1 CAPSULE EVERY 8 HOURS NEEDED FOR COUGH 03/08 completed Not Available Not Available Not Available doxycyclin e monohydrat e 100 mg capsule TAKE 1 CAPSULE 2 TIMES EACH DAY FOR 10 DAYS 11/18 completed Not Available Not Available Not Available neomycin-p olymyxin-d exameth 3.5 mg/mL-10,0 00 unit/mL-0. 1% eye drops PLACE 1 OR 2 DROPS IN THE EFFECTED EYE(S) 2 TIMES EACH DAY FOR 7 DAYS 03/17 completed Not Available Not Available Not Available divalproex ER 500 mg tablet,ext ended release 24 hr TAKE 3 TABLETS IN THE MORNING, AND TAKE 2 TABLETS IN THE EVENING active Not Available Not Available No t Available levothyrox ine 150 mcg tablet TAKE 1 TABLET 1 TIME EACH DAY 07/02 completed made her feel shaky Not Available Not Available Not Available diclofenac sodium 75 mg tablet,del ayed release TAKE 1 TABLET 2 TIMES EACH DAY 07/17 completed Not Available Not Available Not Available Provera 10 mg tablet Take 1 tablet every 4 hours by oral route, for Until her bleeding stops and then 1 a day. 02/02 completed obgyn Not Available Not Available Not Available lisinopril 5 mg tablet TAKE 1 TABLET 1 TIME EACH DAY active Not Available Not Available No t Available ibuprofen 600 mg tablet TAKE 1 TABLET EVERY 6 HOURS NEEDED 05/31 completed Not Available Not Available Not Available methylpred nisolone 4 mg tablets in a dose pack TAKE ACCORDING TO PACKAGE INSTRUCTI ONS 10/15 completed Not Available Not Available Not Available Vitamin D2 1,250 mcg (50,000 unit) capsule TAKE 1 CAPSULE 1 TIME EACH WEEK active Not Available Not Available No t Available propranolo l 20 mg tablet TAKE 2 TABLETS 2 TIMES EACH DAY FOR HEADACHE PREVENTIO N active Not Available Not Available No t Available cefdinir 300 mg capsule TAKE 1 CAPSULE EVERY 12 HOURS FOR 7 DAYS active Not Available Not Available No t Available doxycyclin e hyclate 100 mg tablet TAKE 1 CAPSULE 2 TIMES EACH DAY FOR 7 DAYS 01/17 completed Not Available Not Available Not Available Ventolin HFA 90 mcg/actuat ion aerosol inhaler INHALE 2 PUFFS EVERY 4 HOURS NEEDED active Not Available Not Available No t Available neomycin-p olymyxin-h ydrocort 3.5 mg-10,000 unit/mL-1 % ear drops,susp INSTILL 4 DROPS INTO AFFECTED EAR(S) BY OTIC ROUTE 3 TIMES PER DAY 07/17 completed Not Available Not Available Not Available Sprintec (28) 0.25 mg-0.035 mg tablet TAKE 1 TABLET 1 TIME EACH DAY 02/02 completed obgyn Not Available Not Available Not Available sodium chloride 1,000 mg soluble tablet TAKE 1 TABLET 1 TIME EACH DAY 07/17 completed Not Available Not Available Not Available cholecalci ferol (vitamin D3) 1,250 mcg (50,000 unit) capsule 09/20 completed Not Available Not Available Not Available Biofreeze (menthol) 4 % topical gel Apply 1 applicati on 4 times a day by topical route as needed. 09/20 completed Not Available Not Available Not Available guaifenesi n ER 600 mg tablet, extended release 12 hr Take 1 tablet every 12 hours by oral route as needed. 05/31 completed Not Available Not Available Not Available Aspercreme (lidocaine HCl) 4 % topical Apply 1 applicati on 4 times a day by topical route as needed. 09/20 completed Not Available Not Available Not Available [employer] Mask active Not Available Not Available Not Available Ubrelvy 100 mg tablet TAKE 1 TABLET 1 TIME EACH DAY NEEDED FOR MIGRAINE HEADACHE active Not Available Not Available No t Available Vitals Date Recorded Body height Body mass index (BMI) Body weight Heart rate Oxygen saturation Oxygen saturation in Arterial blood by Pulse oximetry Body temperature Systolic And Diastolic Provider Name and Address Organization Details Last Updated DateTime 5 167.64 cm 28.2 kg/m2 29737.6 6 g 97 /min 95 % 95 % 97 [degF] 118/79 mm[Hg] Sejal Guardado [place] - [facility]. 5 11:11:47 Social History Question Answer Notes LastModified by [employer] ion Details LastModified Time Tobacco Smoking Status Current Every Day Smoker JUDITH garcia [facility] [employer] 01/14/2022 08:37:42 Do You Have An Advance Directive? No [email or web address] Information n ot available 01/14/2022 Is Your Home Air Conditioned? Yes Information not available 09/20/2024 Do You Wear A Helmet When Biking? No Information not available 09/20/2024 Are You Blind Or Do You Have Difficulty Seeing? No [email or web address] Information n ot available 01/14/2022 What Is Your Level Of Caffeine Consumption? Moderate Information not available 07/02/2022 In The 14 Days Before Symptom Onset, Have You Had Close Contact With A Laboratory-confirm ed COVID-19 While That Case Was Ill? No [email or web address] Information n ot available 01/14/2022 In The 14 Days Before Symptom Onset, Have You Had Close Contact With A Person Who Is Under Investigation For COVID-19 While That Person Was Ill? No [email or web address] Information not available 01/14/2022 Have You Been To An Area Known To Be High Risk For COVID-19? No [email or web address] Information not available 01/14/2022 Are You Deaf Or Do You Have Serious Difficulty Hearing? No [email or web address] Information not available 01/14/2022 What Type Of Diet Are You Following? REGULAR [email or web address] Information n ot available 01/14/2022 What Is The Highest Grade Or Level Of School You Have Completed Or The Highest Degree You Have Received? [id number] Information not available 11/18/2024 Have There Been Any Changes To Your Family Or Social Situation? No [email or web address] Information no t available 03/08/2022 Are There Any Guns Present In Your Home? No Information not available 09/20/2024 Which Of Your Hands Is Dominant? Left Information n ot available 09/20/2024 Do You Engage In Moderate/heavy Exercise (e.g. Brisk Walk, Jogging, Strength Training, Etc)? No Information not available 11/18/2024 How Many Times In The Past Year Have You Used An Illegal Drug Or Used A Prescription Medication For Nonmedical Reasons? 0 Information not available 11/18/2024 Do You Have A Medical Power Of Mail Rider? No [email or web address] Information not available 01/14/2022 What Was The Date Of Your Most Recent Tobacco Screening? 12/17/2024 Information not available 12/17/2024 What Is Your Current Pack Years? [email or web address] Information not available 01/14/2022 Do You Have Any Pets? Yes Information not available 09/20/2024 Do You Use Protection During Sex? No Information not available 09/20/2024 What Is Your Relationship Status? Single Information not available 09/20/2024 Have You Repeated Any Grades? No Information not available 09/20/2024 Do You Use Your Seat Belt Or Car Seat Routinely? Yes Information not available 01/14/2022 Are You Sexually Active? Yes Information not available 09/20/2024 Do You Have Any Siblings? Yes Information not available 09/20/2024 Do You Have Smoke And Carbon Monoxide Detectors In Your Home? Yes Information not available 09/20/2024 At What Age Did You Start Smoking Tobacco? 15 Information not available 11/18/2024 Are You Passively Exposed To Smoke? Yes Information no t available 09/20/2024 Are There Any Smokers In Your House? Yes Information not available 09/20/2024 How Much Tobacco Do You Smoke? 1 PPD [email or web address] Information not available 01/14/2022 What Types Of Sporting Activities Do You Participate In? 0 Information not available 11/18/2024 Do You Use Sunscreen Routinely? No Information not available 09/20/2024 Has Tobacco Cessation Counseling Been Provided? Yes Information not available 08/02/2022 On What Date Was Tobacco Cessation Counseling Provided? 12/17/2024 Information not available 12/17/2024 How Many Years Have You Smoked Tobacco? 20 Information not available 11/18/2024 Have You Recently Traveled Abroad? No [email or web address] Information not available 01/14/2022 Do You Have Difficulty Walking Or Climbing Stairs? No [email or web address] Information not available 01/14/2022 Are You Currently In School? No [email or web address] Information not available 03/08/2022 Do You Have Any Dietary Restrictions? No [email or web address] Information not available 01/14/2022 Sex: Unknown Functional Status Question Answer Note LastModified by Organizat ion Details LastModified Time Do you use any illicit or recreational drugs? No Information not available 07/02/2022 Do you or have you ever used any other forms of tobacco or nicotine? No Information not available 11/18/2024 What is your level of alcohol consumption? None Information not available 01/14/2022 Are you currently employed? No Information not available 09/20/2024 Do you have transportation difficulties? No [email or web address] Information not available 01/14/2022 Are you able to walk independently without assistance or assistive devices? YESWOREST [email or web address] Information not available 01/14/2022 Do you have difficulty doing errands alone? No [email or web address] Information not available 01/14/2022 Are you able to care for yourself independently? Yes [email or web address] Information not available 01/14/2022 Do you have difficulty dressing, bathing, grooming, or toileting? No [email or web address] Information not available 01/14/2022 Mental Status Question Answer Note LastModified by Organizat ion Details LastModified Time Do you feel stressed (tense, restless, nervous, or anxious, or unable to sleep at night)? [id number] Information not available 11/18/2024 Do you have difficulty concentrating, remembering or making decisions? No Information no t available 01/14/2022 Are you or have you been involved with bullying? No Information not available 09/20/2024 Family History Relationship Description Onset Age of this Age Resolved Age Notes LastModified by Organization Details LastModified Time Unspecified Relation Family history of Hypertension Not available 10:47:36 Mother Hypertensive disorder Not available 09/20 10:47:37 Father Hypertensive disorder Not available 09/20 10:47:37 Medical History Condition Response Hypertension Y Hypothyroidism Y High Cholesterol Y Gynecological History Statement/Question Response Abnormal Pap N Sexually Active? Y Menses Monthly N HPV Vaccine N Date of Last Pap Smear 05/05/2023 Current Control Method Sterilizati on Most Recent Mammogram Age at First Child 18 Obstetrics History GPAL:G 2 P 2 0 0 2 Type Value Full Term 2 Living 2 Total 2 Immunizations Vaccine Type Date Status Note Provider Nam e and Address Organization Details Recorded Time Influenza, split virus, trivalent, PF 02/03/2024 completed Estefany Obregon, REVIEW [employer]IN[employer] [address] [place], [address], [employer] 02/03/2024 09:51:27 Influenza, MDCK, quadrivalent, PF 11/26/2019 completed JUDITH AMAYA null, [employer] 01/14/2022 09:11:51 Influenza, MDCK, quadrivalent, PF 11/12/2016 completed JUDITH AMAYA null, [employer] 01/14/2022 09:11:51 Hep A, adult 11/18/2018 completed JUDITH AGUILAR ER null, [employer] 01/14/2022 09:11:51 Influenza, MDCK, quadrivalent, PF 12/05/2017 completed JUDITH AMAYA null, [employer] 01/14/2022 09:11:51 tetanus toxoid, adsorbed 07/19/2007 completed JUDITH AMAYA null, [employer] 01/14/2022 09:11:51 Influenza, MDCK, quadrivalent, PF 11/13/2021 completed JUDITH AMAYA null, [employer] 01/14/2022 09:11:51 Hep A, adult 12/05/2017 completed JUDITH AGUILAR ER null, [employer] 01/14/2022 09:11:51 Influenza, split virus, quadrivalent, PF 12/26/2020 completed JUDITH AMAYA null, [employer] 01/14/2022 09:11:51 Influenza, split virus, trivalent, PF 11/18/2024 completed Sejal garcia [facility] [employer] 11/18/2024 14:42:04 Influenza, MDCK, quadrivalent, PF 10/17/2022 completed Kasey garcia [facility] [employer] 12/19/2022 11:22:13 Past Encounters Encounter ID Performer Location Encounter Start Date Encounter Closed Date Diagnosis/Indication Diagnosis SNOMED-CT Code Diagnosis ICD10 Code Diagnosis IMO Codes Diagnosis Note [id number] [place] [address] 11/18/2024 13:37:18 11/18/2024 14:44:08 Active immunization 34961131 Z23 85953478 Hyperlipidemia 78558934 E78.5 Fatigue 45387962 R53.83 Hyperglycemia 68551536 R 73.9 Mammogram declined 93405 5004 Z53.20 2110525 Dysuria 67802030 R30.0 97904 Viral scre ening status 403255474 Z11.59 765769 HIV screening 736551340 Z11.4 831914 Herpes simplex 90970359 B00.9 Overweight in adulthood with body mass index of 25 or more but less than 30 726267132 Z68.27 263255 [id number] [place] [address] 12/17/2024 10:50:52 12/17/2024 11:38:22 Bronchitis 40755037 J40 00768 Accidental fall 88788537 2 W19.XXXA 0229524 Skin tag 996954733 L91.8 62323 Overweight in adulthood with body mass index of 25 or more but less than 30 047802727 Z68.28 267245 Health Concerns Section Related Observation LastModified by Organization Detai ls LastModified Time None Recorded Concern Status LastModified by Organization Details LastModified Time None Recorded Payers Encounter Date Sequence Insurance Name Policy Number Policy Jennings Covered Member ID Jennings Member ID Guarantor Name 12/17/2024 1 [facility] (MEDICAID HMO) Dolores Hernández [id number] Dolores Hernández Notes Date Note Type Note Provider Name and Address Organization Details Recorded Time 12/17/2024 text/html pt here today with c/o ear pain and cough that has been going on for around a week. pt also fell last night and hurt her right ankle. she also has a skin tag on her neck that she just noticed. pt denies any ill contacts but states that she gets bronchitis often. on exam, bilateral ears red, throat WNL, lungs with LLL ex wheeze. i will order abx and steroids. educated pt on new meds. pt voiced understanding. left neck with tiny flesh colored skin tag, in the area of carotid. i told pt that i can typically remove but due to the placement i would need to send to derm to remove. pt states that she would just wait. pt states that she fell down a could of stairs yesterday, did not hit her head, and she rolled her right ankle. on exam, right lateral ankle with scratch and slightly swollen. pt denies pain when walking. advised pt to RICE. declines xray today and states that she will come back and get if it gets worse. Estefany Obregon APRN [address] [facility], [place], [address], [facility] [employer] 12/17/2024 12:50:39 OBGyn Episode No OBEpisode recorded.
--- OUTSIDE RECORDS SUMMARY | 2024-12-29 12:56 | XMS_ITS | Continuity of Care Document ---
Author Organization [facility], [facility] Address [address] [place] [id number] Care Team Providers Care Color Printer Operator Name Role Phone ESTEFANY OBREGON Primary Care Provider Unavailabl e Assessment No [...] Not available Not available Not available Lab urinal ysis, dipsti ck 2024 025 [facility], [address] [place] [address], [place], [address], 11/18/2024 16:01:57 lipid panel, serum 2024 025 [facility], [address] [place] [address], [place], [address], 11/19/2024 10:08:00 CBC w/ auto diff 2024 025 [facility], [address] [place] [address], [address], 11/19/2024 10:07:58 CMP, serum or plasma 2024 025 [facility]), [address] [place], [address], 11/19/2024 10:07:59 TSH + free T4, serum 2024 025 [facility]), [address] [place], [address], 11/19/2024 10:07:57 cobala min and folate panel, serum 2024 025 [facility]), [address] [place], [address], 11/19/2024 10:08:00 vitami n D, 25-hyd jose, total, serum 2024 025 [facility]), [address] [place], [address], 11/19/2024 10:08:02 HbA1c (hemog lobin A1c), blood 2024 025 [facility]), [address] [place], [address], 11/19/2024 10:08:02 Hepati tis C IgG Ab, qual, serum 2024 025 [facility]), [address] [place], [address], 11/19/2024 10:08:01 HIV 1 + 2, meanin gful use set 2024 025 [facility]), [address] [place], [address], 11/19/2024 10:08:03 Referral None record ed. Procedures None record ed. Surgeries None record ed. Imaging None record ed. Medication Orders acyclo vir 400 mg tablet 2024 025 [facility], [address] [place] [address], [id number], 12/05/2024 05:01:38 Patient TargetsNo targets recorded. Patient InstructionsNo instructions recorded. Reason for Referral None Reported. Results Created Date Observation Date Name Description Value Unit Range Abnormal Flag Note LastModifiedBy Organization Detail LastModifiedTime 10/22/1910/21/2024 rapid flu (A+B) Flu A negati ve Not Available [address], [address], 10/21/2024 13:49:11 10/22/19 25 10/21/2024 rapid flu (A+B) Flu B negati ve Not Available [address], [address], 10/21/2024 13:49:11 10/22/19 25 10/21/2024 rapid SARS CoV 2 Ag, QL, IA, upper respi rator y speci men SARS CoV Ag negati ve Not Available [address], [address], 10/21/2024 13:49:12 11/19/19 25 11/19/2024 TSH+F REE T4 TSH 4.370 uIU/m L 0.450- 4.500 normal Not Available [facility] ([facility]) [address] [place], [address], 11/19/2024 10:07:57 11/19/1911/19/2024 TSH+F REE T4 T4,free(dire ct) 1.38 NG/dL 0.82-1 .77 normal Not Available [facility] ([facility]) [address] [place], [address], 11/19/2024 10:07:57 11/19/1911/19/2024 CBC WITH DIFFE RENTI AL/PL ATELE T WBC 8.1 x10e3 /uL 3.4-10 .8 normal Not Available [facility] ([facility]) [address] [place], [address], 11/19/2024 10:07:58 11/19/1911/19/2024 CBC WITH DIFFE RENTI AL/PL ATELE T RBC 4.68 x10e6 /uL 3.77-5 .28 normal Not Available [facility] ([facility]) [address] [facility], [place], [address], 11/19/2024 10:07:58 11/19/1911/19/2024 CBC WITH DIFFE RENTI AL/PL ATELE T hemoglobin 15.0 g/dL 11.1-1 5.9 normal Not Available [facility] ([facility]) [address] [facility], [place], [address], 11/19/2024 10:07:58 11/19/19 25 11/19/2024 CBC WITH DIFFE RENTI AL/PL ATELE T hematocrit 46.4 % 34.0-4 6.6 normal Not Available [facility] ([facility]) [address] [facility], [place], [address], 11/19/2024 10:07:58 11/19/1911/19/2024 CBC WITH DIFFE RENTI AL/PL ATELE T MCV 99 fL 79-97 above high normal Not Available [facility] ([facility]) [address] [facility], [place], [address], 11/19/2024 10:07:58 11/19/1911/19/2024 CBC WITH DIFFE RENTI AL/PL ATELE T MCH 32.1 pg 26.6-3 3.0 normal Not Available [facility] ([facility]) [address] [facility], [place], [address], 11/19/2024 10:07:58 11/19/19 25 11/19/2024 CBC WITH DIFFE RENTI AL/PL ATELE T MCHC 32.3 g/dL 31.5-3 5.7 normal Not Available [facility] ([facility]) [address] [facility], [place], [address], 11/19/2024 10:07:58 11/19/1911/19/2024 CBC WITH DIFFE RENTI AL/PL ATELE T RDW 12.4 % 11.7-1 5.4 Not Available [facility] ([facility]) [address] [facility], [place], [address], 11/19/2024 10:07:58 11/19/1911/19/2024 CBC WITH DIFFE RENTI AL/PL ATELE T platelets 234 x10e3 /uL 150-45 0 normal Not Available [facility] ([facility]) [address] [facility], [place], [address], 11/19/2024 10:07:58 11/19/19 25 11/19/2024 CBC WITH DIFFE RENTI AL/PL ATELE T neutrophils 39 % not estab. normal Not Available [facility] ([facility]) [address] [facility], [place], [address], 11/19/2024 10:07:58 11/19/1911/19/2024 CBC WITH DIFFE RENTI AL/PL ATELE T lymphs 46 % not estab. normal Not Available [facility] ([facility]) [address] [facility], [place], [address], 11/19/2024 10:07:58 11/19/1911/19/2024 CBC WITH DIFFE RENTI AL/PL ATELE T monocytes 12 % not estab. normal Not Available [facility] ([facility]) [address] [facility], [place], [address], 11/19/2024 10:07:58 11/19/19 25 11/19/2024 CBC WITH DIFFE RENTI AL/PL ATELE T eos 2 % not estab. normal Not Available [facility] ([facility]) [address] [facility], [place], [address], 11/19/2024 10:07:58 11/19/19 25 11/19/2024 CBC WITH DIFFE RENTI AL/PL ATELE T basos 1 % not estab. normal Not Available [facility] ([facility]) [address] [place], [address], 11/19/2024 10:07:58 11/19/19 25 11/19/2024 CBC WITH DIFFE RENTI AL/PL ATELE T immature cells ASSISTIVE TECHNOLOGY TRAINER Not Available [facility] ([facility]) [address] [place], [address], 11/19/2024 10:07:58 11/19/19 25 11/19/2024 CBC WITH DIFFE RENTI AL/PL ATELE T neutrophils (absolute) 3.2 x10e3 /uL 1.4-7. 0 normal Not Available [facility] ([facility]) [address] [place], [address], 11/19/2024 10:07:58 11/19/19 25 11/19/2024 CBC WITH DIFFE RENTI AL/PL ATELE T lymphs (absolute) 3.8 x10e3 /uL 0.7-3. 1 above high normal Not Available [facility] ([facility]) [address] [place], [address], 11/19/2024 10:07:58 11/19/19 25 11/19/2024 CBC WITH DIFFE RENTI AL/PL ATELE T monocytes(ab solute) 1.0 x10e3 /uL 0.1-0. 9 above high normal Not Available [facility] ([facility]) [address] [place], [address], 11/19/2024 10:07:58 11/19/19 25 11/19/2024 CBC WITH DIFFE RENTI AL/PL ATELE T eos (absolute) 0.1 x10e3 /uL 0.0-0. 4 normal Not Available [facility] ([facility]) [address] [facility] [place], [address], 11/19/2024 10:07:58 11/19/19 25 11/19/2024 CBC WITH DIFFE RENTI AL/PL ATELE T baso (absolute) 0.1 x10e3 /uL 0.0-0. 2 normal Not Available [facility] ([facility]) [address] [facility], [place], [address], 11/19/2024 10:07:58 11/19/19 25 11/19/2024 CBC WITH DIFFE RENTI AL/PL ATELE T immature granulocytes 0 % not estab. Not Available [facility] ([facility]) [address] [facility], [place], [address], 11/19/2024 10:07:58 11/19/19 25 11/19/2024 CBC WITH DIFFE RENTI AL/PL ATELE T immature grans (abs) 0.0 x10e3 /uL 0.0-0. 1 Not Available [facility] ([facility]) [address] [facility], [place], [address], 11/19/2024 10:07:58 11/19/19 25 11/19/2024 CBC WITH DIFFE RENTI AL/PL ATELE T NRBC ASSISTIVE TECHNOLOGY TRAINER Not Available [facility] ([facility]) [address] [facility], [place], [address], 11/19/2024 10:07:58 11/19/1911/19/2024 CBC WITH DIFFE RENTI AL/PL ATELE T hematology comments: ASSISTIVE TECHNOLOGY TRAINER Not Available [facility] ([facility]) [address] [facility], [place], [address], 11/19/2024 10:07:58 11/19/19 25 11/19/2024 COMP. METAB OLIC PANEL (14) glucose 88 mg/dL 70-99 normal Not Available [facility] ([facility]) [address] [facility], [place], [address], 11/19/2024 10:07:59 11/19/19 25 11/19/2024 COMP. METAB OLIC PANEL (14) BUN 15 mg/dL 6-24 normal Not Available [facility] ([facility]) [address] [facility] [place], [address], 11/19/2024 10:07:59 11/19/19 25 11/19/2024 COMP. METAB OLIC PANEL (14) creatinine 0.59 mg/dL 0.57-1 .00 normal Not Available [facility] ([facility]) [address] [facility], [place], [address], 11/19/2024 10:07:59 11/19/19 25 11/19/2024 COMP. METAB OLIC PANEL (14) eGFR 106 mL/mi n/1.7 3 >59 normal Not Available [facility] ([facility]) [address] [place], [address], 11/19/2024 10:07:59 11/19/19 25 11/19/2024 COMP. METAB OLIC PANEL (14) BUN/creatini ne ratio 25 9-23 above high normal Not Available [facility] ([facility]) [address] [place], [address], 11/19/2024 10:07:59 11/19/19 25 11/19/2024 COMP. METAB OLIC PANEL (14) sodium 133 mmol/ L 134-14 4 below low normal Not Available [facility] ([facility]) [address] [place], [address], 11/19/2024 10:07:59 11/19/19 25 11/19/2024 COMP. METAB OLIC PANEL (14) potassium 4.6 mmol/ L 3.5-5. 2 normal Not Available [facility] ([facility]) [address] [place], [address], 11/19/2024 10:07:59 11/19/19 25 11/19/2024 COMP. METAB OLIC PANEL (14) chloride 99 mmol/ L 96-106 normal Not Available [facility] ([facility]) [address] [place], [address], 11/19/2024 10:07:59 11/19/19 25 11/19/2024 COMP. METAB OLIC PANEL (14) carbon dioxide, total 19 mmol/ L 20-29 below low normal Not Available [facility] ([facility]) [address] [place], [address], 11/19/2024 10:07:59 11/19/1911/19/2024 COMP. METAB OLIC PANEL (14) calcium 9.1 mg/dL 8.7-10 .2 normal Not Available [facility] ([facility]) [address] [place], [address], 11/19/2024 10:07:59 11/19/19 25 11/19/2024 COMP. METAB OLIC PANEL (14) protein, total 6.7 g/dL 6.0-8. 5 normal Not Available [facility] ([facility]) [address] [place], [address], 11/19/2024 10:07:59 11/19/19 25 11/19/2024 COMP. METAB OLIC PANEL (14) albumin 4.2 g/dL 3.8-4. 9 normal Not Available [facility] ([facility]) [address] [place], [address], 11/19/2024 10:07:59 11/19/19 25 11/19/2024 COMP. METAB OLIC PANEL (14) globulin, total 2.5 g/dL 1.5-4. 5 Not Available [facility] ([facility]) [address] [place], [address], 11/19/2024 10:07:59 11/19/19 25 11/19/2024 COMP. METAB OLIC PANEL (14) bilirubin, total <0.2 mg/dL 0.0-1. 2 Not Available [facility] ([facility]) [address] [facility] [place], [address], 11/19/2024 10:07:59 11/19/19 25 11/19/2024 COMP. METAB OLIC PANEL (14) alkaline phosphatase 65 IU/L 49-135 normal Not Available [facility] ([facility]) [address] [facility] [place], [address], 11/19/2024 10:07:59 11/19/19 25 11/19/2024 COMP. METAB OLIC PANEL (14) AST (SGOT) 14 IU/L 0-40 normal Not Available [facility] ([facility]) [address] [facility] [place], [address], 11/19/2024 10:07:59 11/19/19 25 11/19/2024 COMP. METAB OLIC PANEL (14) ALT (SGPT) 9 IU/L 0-32 normal Not Available [facility] ([facility]) [address] [facility] [place], [address], 11/19/2024 10:07:59 11/19/19 25 11/19/2024 LIPID PANEL cholesterol, total 185 mg/dL 100-19 9 normal Not Available [facility] ([facility]) [address] [place], [address], 11/19/2024 10:08:00 11/19/19 25 11/19/2024 LIPID PANEL triglyceride s 85 mg/dL 0-149 normal Not Available [facility] ([facility]) [address] [facility] [place], [address], 11/19/2024 10:08:00 11/19/19 25 11/19/2024 LIPID PANEL HDL cholesterol 86 mg/dL >39 normal Not Available [facility] ([facility]) [address] [facility] [place], [address], 11/19/2024 10:08:00 11/19/19 25 11/19/2024 LIPID PANEL VLDL cholesterol shalonda 15 mg/dL 5-40 Not Available [facility] ([facility]) [address] [facility], [place], [address], 11/19/2024 10:08:00 11/19/19 25 11/19/2024 LIPID PANEL LDL chol calc ([facility]) 84 mg/dL 0-99 Not Available [facility] ([facility]) [address] [facility], [place], [address], 11/19/2024 10:08:00 11/19/1911/19/2024 LIPID PANEL LDL calc comment: ASSISTIVE TECHNOLOGY TRAINER Not Available [facility] ([facility]) [address] [facility], [place], [address], 11/19/2024 10:08:00 11/19/1911/19/2024 VITAM IN B12 AND FOLAT E vitamin B12 628 pg/mL 232-12 45 normal Not Available [facility] ([facility]) [address] [facility], [place], [address], 11/19/2024 10:08:00 11/19/1911/19/2024 VITAM IN B12 AND FOLAT E folate (folic acid), serum 9.3 NG/mL >3.0 normal A serum folat e bassem ntrat ion of less than 3.1 ng/mL is consi dered to repre sent clini shalonda defic iency . Not Available [facility] ([facility]) [address] [facility], [place], [address], 11/19/2024 10:08:00 11/19/1911/19/2024 HCV ANTIB DARIELA RFX TO QUANT PCR HCV Ab Non Reacti ve non reacti ve Not Available [facility] ([facility]) [address] [facility], [place], [address], 11/19/2024 10:08:01 11/19/19 25 11/19/2024 HCV ANTIB DARIELA RFX TO QUANT PCR interpretati on: Commen t Not infec shania with HCV unles s early or acute infec tion is suspe cted (whic h may be delay ed in an immun ocomp romis ed indiv idual ), or other evide nce exist s to indic ate HCV infec tion. Not Available [facility] ([facility]) [address] [facility], [place], [address], 11/19/2024 10:08:01 11/19/1911/19/2024 HEMOG LOBIN A1C hemoglobin A1C 5.1 % 4.8-5. 6 normal Predi abete s: 5.7 - 6.4 Diabe blank: >6.4 Glyce beatriz contr ol for adult s with diabe blank: <7.0 Not Available [facility] ([facility]) [address] [facility], [place], [address], 11/19/2024 10:08:02 11/19/1911/19/2024 VITAM IN D, 25-HY DROXY vitamin D, [...] Medic ine). 2010. Dieta ry refer ence chris es for calci um and D. Foreign wong [place]: The [facility]io n[facility] Press . 2. Camille schofield MF, Meli ey [place], Matt off-F errar i FERNANDES, et al. Evalu ation , treat ment, and preve ntion of vitam in D defic iency : an Endoc rine Socie ty clini shalonda pract ice guide line. JCEM. 2010; 96(7) :1911 -30. Not Available [facility] ([facility]) [address] [facility], [place], [address], 11/19/2024 10:08:02 11/19/19 25 11/19/2024 HIV AB/P2 4 AG WITH REFLE X HIV Ab/P24 Ag screen Non Reacti ve non reacti ve HIV-1 /HIV- 2 antib odies and HIV-1 p24 antig en were NOT detec shania. There is no labor atory evide nce of HIV infec tion. HIV Negat baljinder Not Available [facility] ([facility]) [address] [facility], [place], [address], 11/19/2024 10:08:03 11/19/19 25 11/18/2024 urina lysis , dipst ick Leukocytes Trace Not Available [address], [address], 11/18/2024 14:29:40 11/19/19 25 11/18/2024 urina lysis , dipst ick Nitrite negati ve Not Available [address], [address], 11/18/2024 14:29:40 11/19/19 25 11/18/2024 urina lysis , dipst ick Urobilinogen .2 Not Available [address], [address], 11/18/2024 14:29:40 11/19/19 25 11/18/2024 urina lysis , dipst ick Protein Negati ve Not Available [address], [address], 11/18/2024 14:29:40 11/19/19 25 11/18/2024 urina lysis , dipst ick pH 8.0 Not Available [address], [address], 11/18/2024 14:29:40 11/19/1911/18/2024 urina lysis , dipst ick Blood Modera te Not Available [address], [address], 11/18/2024 14:29:40 11/19/1911/18/2024 urina lysis , dipst ick Specific [place] 1.020 Not Available [address], [address], 11/18/2024 14:29:40 11/19/1911/18/2024 urina lysis , dipst ick Ketone Small Not Available [address], [address], 11/18/2024 14:29:40 11/19/19 25 11/18/2024 urina lysis , dipst ick Bilirubin Negati ve Not Available [address], [address], 11/18/2024 14:29:40 11/19/1911/18/2024 urina lysis , dipst ick Glucose Negati ve Not Available [address], [address], 11/18/2024 14:29:40 11/19/1911/18/2024 urina lysis , dipst ick Appearance Clear Not Available [address], [address], 11/18/2024 14:29:40 11/19/19 25 11/18/2024 urina lysis , dipst ick Color Dark Yellow Not Available [address], [place], [address], 11/18/2024 14:29:40 Result Notes None recorded. Problems Name Problem SNOMED Code Status Onset Date Resolution Date Notes Provider Name and Address Organization Details Recorded Time Nicotine dependen ce 92489065 Active 2020 Problem Code: F17.200; Problem Code Type: ICD-10; Not Available [facility] 21:08:21 Foot joint - soft tissue swelling 709108141 Completed 202004/16/2021 Not Available [facility] 21:08:21 Pain in left knee Completed 202001/14/2022 Problem Code: M25.562; Problem Code Type: ICD-10; JUDITH garcia, [employer]. 08:35:10 Body mass index 25-29 - [facility] 571172228 Completed 202004/16/2021 Problem Code: Z68.28; Problem Code Type: ICD-10; Not Available [facility] 21:08:22 Myositis 44162216 Completed 202101/14/2022 Problem Code: M60.9; Problem Code Type: ICD-10; JUDITH garcia [employer] 2 08:35:10 Cough 92088422 Completed 202101/14/2022 Problem Code: R05; Problem Code Type: ICD-10; Sejal garcia [employer] 4 10:57:58 Disorder of upper respirat ory system 443168919 Completed 202108/24/2021 Problem Code: J06.9; Problem Code Type: ICD-10; Not Available [facility] 21:08:21 Wheezing 56578607 Completed 202101/14/2022 Problem Code: R06.2; Problem Code Type: ICD-10; JUDITH garcia [employer] 2 08:35:10 Neck pain 09412484 Completed 202101/14/2022 JUDITH garcia, [employer] 2 08:35:10 Acute low back pain 945894650 Completed 202101/14/2022 JUDITH garcia, [employer] 2 08:35:10 Tingling of skin 299936643 Completed 202101/14/2022 Problem Code: R20.2; Problem Code Type: ICD-10; JUDITH garcia, [employer] 2 08:35:10 Body mass index 25-29 - overweig ht 982570123 Active 2021 Problem Code: Z68.25; Problem Code Type: ICD-10; Not Available [facility] 2 21:08:22 Anxiety 49975493 Active 2022 JUDITH garcia, [employer] 3 10:13:33 Postmeno pausal bleeding 83477040 Active 2023 Young Rapp II, MD [address] [place] [address], [address] , [employer] 4 11:41:09 Abnormal uterine bleeding 96414361850 100 Active 2023 Young Rapp II, MD [address] [place] [address], [address] , [employer] 4 10:06:02 Long-ter m drug therapy Active 2023 Sejal Guardado jose, [employer] 4 11:25:20 Cough 52566612 Active 2023 Problem Code: R05; Problem Code Type: ICD-10; Sejal garcia, [employer] 4 10:57:58 Hyperlip idemia 88203940 Active 2024 Sejal Se[employer]ka [employer] 14:18:37 Acute cough Active 2024 [employer] 5 09:48:45 Depressi ve disorder 27414357 Active 2024 [employer] 5 10:11:24 Fatigue 47404701 Active 2024 Sejal Guardado [employer] 14:18:37 Hypergly cemia 13015582 Active 2024 Sejal Guardado [employer] 14:18:37 Problem Notes None recorded. Procedures Surgical History Date Name Laterality Status Provider Name and Address Organization Details Recorded Time 10/03/19 24 HYSTEROSCOPIC TISSUE REMOVAL (SURG) completed [employer]. 10/03/2023 10:20:16 05/05/19 24 Date of Last Pap Smear completed [employer]. 08/26/2023 14:06:18 01/27/20 21 ligation of bilateral fallopian tubes completed Not Available [facility] 10/23/2021 22:56:08 thyroidectomy completed [employer]. 09/15/2023 11:15:28 Breast Biopsy completed [employer]. 09/20/2024 10:47:29 Tonsillectomy completed [employer]. 09/20/2024 10:47:29 Imaging Results None recorded. Procedure Notes None recorded. Medical Equipment None Reported. Allergies Allergen ID Allergen Name Allergen Category Reaction Reaction Severity Criticality Documentation Date Start Date Code Code System Note Provider Name and Address Organization Details Recorded Time 66388 Product containin g penicilli n (product) medicatio n rash Not available Not available 05/01/2023 29506 8001 SNOMED [facility] [place] [employer] 4 10:52:22 Medications Name Sig Start Date Stop [...] completed Not Available Not Available Not Available [employer] Mask active Not Available Not Available Not Available Ubrelvy 100 mg tablet TAKE 1 TABLET 1 TIME EACH DAY NEEDED FOR MIGRAINE HEADACHE active Not Available Not Available No t Available Vitals Date Recorded Body height Body mass index (BMI) Body weight Heart rate Oxygen saturation Oxygen saturation in Arterial blood by Pulse oximetry Systolic And Diastolic Provider Name and Address Organization Details Last Updated DateTime 167.64 cm 27.7 kg/m2 66660.4 g 87 /min 94 % 94 % 123/77 mm[Hg] Sejal Guardado [employer], [employer]. 14:17:12 Social History Question Answer Notes LastModified by Organizat ion Details LastModified Time Tobacco Smoking Status Current Every Day Smoker JUDITH garcia, [employer], [employer] 01/14/2022 08:37:42 Do You Have An Advance Directive? No Information n ot available 01/14/2022 Is Your Home Air Conditioned? Yes Information not available 09/20/2024 Do You Wear A Helmet When Biking? No Information not available 09/20/2024 Are You Blind Or Do You Have Difficulty Seeing? No Information n ot available 01/14/2022 What Is Your Level Of Caffeine Consumption? Moderate Information not available 07/02/2022 In The 14 Days Before Symptom Onset, Have You Had Close Contact With A Laboratory-confirm ed COVID-19 While That Case Was Ill? No [email or web address] Information n ot available 01/14/2022 In The 14 Days Before Symptom Onset, Have You Had Close Contact With A Person Who Is Under Investigation For COVID-19 While That Person Was Ill? No [email or web address] Information not available 01/14/2022 Have You Been To An Area Known To Be High Risk For COVID-19? No [email or web address] Information not available 01/14/2022 Are You Deaf Or Do You Have Serious Difficulty Hearing? No [email or web address] Information not available 01/14/2022 What Type Of Diet Are You Following? REGULAR [email or web address] Information n ot available 01/14/2022 What Is The Highest Grade Or Level Of School You Have Completed Or The Highest Degree You Have Received? [id number] Information not available 11/18/2024 Have There Been Any Changes To Your Family Or Social Situation? No [email or web address] Information no t available 03/08/2022 Are There [...] Do You Have A Medical Power Of Solution Specialist? No [email or web address] Information not available 01/14/2022 What Was The Date Of Your Most Recent Tobacco Screening? 12/17/2024 Information not available 12/17/2024 What Is Your Current Pack Years? [email or web address] Information not available 01/14/2022 Do You Have Any Pets? Yes Information not available 09/20/2024 Do You Use Protection During Sex? No Information not available 09/20/2024 What Is Your Relationship Status? Single Information not available 09/20/2024 Have You Repeated Any Grades? No Information not available 09/20/2024 Do You Use Your Seat Belt Or Car Seat Routinely? Yes [email or web address] Information not available 01/14/2022 Are You Sexually [...] Much Tobacco Do You Smoke? 1 PPD [email or web address] Information not available 01/14/2022 What Types Of [...] 11/18/2024 Have You Recently Traveled Abroad? No [email or web address] Information not available 01/14/2022 Do You Have Difficulty Walking Or Climbing Stairs? No [email or web address] Information not available 01/14/2022 Are You Currently In School? No [email or web address] Information not available 03/08/2022 Do You Have Any Dietary Restrictions? No [email or web address] Information not available 01/14/2022 Sex: Unknown Functional Status Question Answer Note LastModified by Organizat ion Details LastModified Time Do you use any illicit or recreational drugs? No Information not available 07/02/2022 Do you or have you ever used any other forms of tobacco or nicotine? No Information not available 11/18/2024 What is your level of alcohol consumption? None [email or web address] Information not available 01/14/2022 Are you currently employed? No Information not available 09/20/2024 Do you have transportation difficulties? No [email or web address] Information not available 01/14/2022 Are you able to walk independently without assistance or assistive devices? YESWOREST [email or web address] Information not available 01/14/2022 Do you have difficulty doing errands alone? No [email or web address] Information not available 01/14/2022 Are you able to care for yourself independently? Yes Information not available 01/14/2022 Do you have difficulty dressing, bathing, grooming, or toileting? No [email or web address] Information not available 01/14/2022 Mental Status Question Answer Note LastModified by Organizat ion Details LastModified Time Do you feel stressed (tense, restless, nervous, or anxious, or unable to sleep at night)? [id number] Information not available 11/18/2024 Do you have difficulty concentrating, remembering or making decisions? No [email or web address] Information no t available 01/14/2022 Are you [...] available 09/20 10:47:37 Medical History Condition Response Hypothyroidism Y High Cholesterol Y Hypertension Y Gynecological History Statement/Question Response Abnormal Pap [...] split virus, trivalent, PF 02/03/2024 completed Estefany Obregon APRN [address] [place], [address], [facility] 02/03/2024 09:51:27 Influenza, MDCK, quadrivalent, PF 11/26/2019 completed JUDITH garcia [facility] 01/14/2022 09:11:51 Influenza, MDCK, quadrivalent, PF 11/12/2016 completed JUDITH AMAYA null, [facility] 01/14/2022 09:11:51 Hep A, adult 11/18/2018 completed JUDITH AGUILAR ER null, [facility] 01/14/2022 09:11:51 Influenza, MDCK, quadrivalent, PF 12/05/2017 completed JUDITH AMAYA null, [facility] 01/14/2022 09:11:51 tetanus toxoid, adsorbed 07/19/2007 completed JUDITH AMAYA null, [facility] 01/14/2022 09:11:51 Influenza, MDCK, quadrivalent, PF 11/13/2021 completed JUDITH AMAYA null, [facility] 01/14/2022 09:11:51 Hep A, adult 12/05/2017 completed JUDITH ROBERTS null, [facility] 01/14/2022 09:11:51 Influenza, split virus, quadrivalent, PF 12/26/2020 completed JUDITH AMAYA null, [facility] 01/14/2022 09:11:51 Influenza, split virus, trivalent, PF 11/18/2024 completed Sejal Guardado null, [facility] 11/18/2024 14:42:04 Influenza, MDCK, quadrivalent, PF 10/17/2022 completed Kasey Nicole null, [facility] 12/19/2022 11:22:13 Past Encounters Encounter ID Performer Location Encounter Start Date Encounter Closed Date Diagnosis/Indication Diagnosis SNOMED-CT Code Diagnosis ICD10 Code Diagnosis IMO Codes Diagnosis Note [id number] Estefany Sabas[address] [address] 10/21/2024 13:28:41 10/21/2024 14:33:08 Acute cough 6798641399 83913802 R05.2 [id number] Acute bact erial sinusitis 38118174 J01.90 B96.89 73021 Overweight in adulthood with body mass index of 25 or more but less than 30 [id number] Z68.27 [id number] Estefany Obregon APRN [address] [address] 11/18/2024 13:37:18 11/18/2024 14:44:08 Active immunization 90821161 Z23 [id number] Hyperlipidemia 21432600 E78.5 Fatigue 58366106 R53.83 Hyperglycemia 41840047 R 73.9 Mammogram declined 46484 5004 Z53.20 6926360 Dysuria 00192183 R30.0 34092 Viral scre ening status 206233951 Z11.59 489925 HIV screening 985414015 Z11.4 905909 Herpes simplex 07517026 B00.9 Overweight in adulthood with body mass index of 25 or more but less than 30 559408860 Z68.27 494262 Health Concerns Section Related Observation LastModified by Organization Detai ls LastModified Time None Recorded Concern Status LastModified by Organization Details LastModified Time None Recorded Payers Encounter Date Sequence Insurance Name Policy Number Policy Jennings Covered Member ID Jennings Member ID Guarantor Name 11/18/2024 1 [employer] [place] ([place]) Dolores Hernández [id number] Dolores Hernández Notes Date Note Type Note Provider Name and Address Organization Details Recorded Time 11/18/2024 text/html pt here today for medication refills. pt states shes doing well on current medication regime. pt states that her recent boyfriend just told her that he was hep c positive and she would like to get tested. denies any symptoms. pt also wanted to have her urine tested states that she was having some dysuria a few days ago but has gotten better. Estefany Obregon APRN [address] [place], [address], [place] [facility] [employer] [facility] 11/18/2024 14:50:28 OBGyn Episode No OBEpisode recorded.
--- OUTSIDE RECORDS SUMMARY | 2024-12-29 12:56 | XMS_ITS | Data Portability ---
Author Organization [facility] Address [address] [place] [address] Care Team Providers Care Parliamentary Archivist Name Role Phone ESTEFANY OBREGON Primary Care [...] Lab urinal ysis, dipsti ck [address], [address], 11/18/2024 16:01:57 lipid panel, serum 2024 025 [facility]), [address] [place] [address], [address], 11/19/2024 10:08:00 CBC w/ auto diff 2024 025 [facility], [address] [place] [address], [address], 11/19/2024 10:07:58 CMP, serum or plasma 2024 025 [facility], [address] [place], [address], 11/19/2024 10:07:59 TSH + free T4, serum 2024 025 [facility]), [address] [place], [address], 11/19/2024 10:07:57 cobala min and folate panel, serum 2024 025 [facility]), [address] [place], [address], 11/19/2024 10:08:00 vitami n D, 25-hyd jose, total, serum 2024 025 [facility]), [address] [place], [address], 11/19/2024 10:08:02 HbA1c (hemog lobin A1c), blood 2024 025 [facility]), [address] [place], [address], 11/19/2024 10:08:02 Hepati tis C IgG Ab, qual, serum 2024 025 [facility]), [address] [place], [address], 11/19/2024 10:08:01 HIV 1 + 2, meanin gful use set 2024 025 [facility]), [address] [place], [address], 11/19/2024 10:08:03 rapid flu (A+B) [address], [place], [address], 10/21/2024 15:29:03 rapid SARS CoV 2 Ag, QL, IA, upper respir atory specim en [address], [address] [place] [address], [place], [address], 10/21/2024 15:29:03 Referral None record ed. Procedures None record ed. Surgeries None record ed. Imaging None record ed. Medication Orders predni sone 20 mg tablet 2024 [facility], [address] [place] [address], [id number], 12/27/2024 05:02:33 cefdin ir 300 mg capsul e 2024 [facility], [address] [place] [address], [id number], 12/17/2024 14:04:39 acyclo vir 400 mg tablet 2024 [facility], [address] [place] [address], [id number], 12/05/2024 05:01:38 Zithro max Z-Torsten 250 mg tablet 2024 [facility], [address] [place] [address], [id number], 11/18/2024 14:17:43 predni sone 20 mg tablet 2024 [facility], [address] [place] [address], [id number], 12/27/2024 05:02:33 levoth yroxin e 137 mcg tablet 2024 025 [facility], [address] [place] [address], [id number], 09/20/2024 15:20:42 Ventol in HFA 90 mcg/ac tuatio n aeroso l inhale r 2024 025 [facility], [address] [place] [address], [id number], 09/20/2024 15:35:21 simvas tatin 40 mg tablet 2024 025 [facility], [address] [place] [address], [id number], 09/20/2024 15:45:24 paroxe bianka 10 mg tablet 2024 025 [facility], [address] [place] [address], [id number], 09/20/2024 15:20:43 Vitami n D2 1,250 mcg (50,00 0 unit) capsul e 2024 025 [facility], [address] [place] [address], [id number], 09/20/2024 15:50:39 lisino pril 5 mg tablet 2024 025 [facility], [address] [place] [address], [id number], 09/20/2024 15:30:46 cyclob enzapr ine 10 mg tablet 2024 025 [facility], [address] [place] [address], [id number], 09/17/2024 13:07:35 Patient TargetsNo targets recorded. Patient Instructions Encounter Date Encounter Id Patient Instructions Last Modified By Organization Details Last Modified Time 09/20/2024 [id number] controlled substance agreement* [email or web address] Not available 09/20/2024 11:35:14 Reason for Referral None Reported. Results Created Date Observation Date Name Description Value Unit Range Abnormal Flag Note LastModifiedBy Organization Detail LastModifiedTime 10/22/19 25 10/21/2024 rapid flu (A+B) Flu A negati ve Not Available [address], [address], 10/21/2024 13:49:11 10/22/19 25 10/21/2024 rapid flu (A+B) Flu B negati ve Not Available [address], [address], 10/21/2024 13:49:11 10/22/19 25 10/21/2024 rapid SARS CoV 2 Ag, QL, [place], upper respi rator y speci men SARS CoV Ag negati ve Not Available [address], [address], 10/21/2024 13:49:12 11/19/19 25 11/19/2024 TSH+F REE T4 TSH 4.370 uIU/m L 0.450- 4.500 normal Not Available [facility] ([facility]) [address] [place], [address], 11/19/2024 10:07:57 11/19/1911/19/2024 TSH+F REE T4 T4,free(dire ct) 1.38 NG/dL 0.82-1 .77 normal Not Available [facility] ([facility]) [address] [place], [address], 11/19/2024 10:07:57 11/19/1911/19/2024 CBC WITH DIFFE RENTI AL/PL ATELE T WBC 8.1 x10e3 /uL 3.4-10 .8 normal Not Available [facility] ([facility]) [address] [place], [address], 11/19/2024 10:07:58 11/19/19 25 11/19/2024 CBC WITH DIFFE RENTI AL/PL ATELE T RBC 4.68 x10e6 /uL 3.77-5 .28 normal Not Available [facility] ([facility]) [address] [place], [address], 11/19/2024 10:07:58 11/19/1911/19/2024 CBC WITH DIFFE RENTI AL/PL ATELE T hemoglobin 15.0 g/dL 11.1-1 5.9 normal Not Available [facility] ([facility]) [address] [place], [address], 11/19/2024 10:07:58 11/19/1911/19/2024 CBC WITH DIFFE RENTI AL/PL ATELE T hematocrit 46.4 % 34.0-4 6.6 normal Not Available [facility] ([facility]) [address] [place], [address], 11/19/2024 10:07:58 11/19/1911/19/2024 CBC WITH DIFFE RENTI AL/PL ATELE T MCV 99 fL 79-97 above high normal Not Available [facility] ([facility]) [address] [place], [address], 11/19/2024 10:07:58 11/19/1911/19/2024 CBC WITH DIFFE RENTI AL/PL ATELE T MCH 32.1 pg 26.6-3 3.0 normal Not Available [facility] ([facility]) [address] [place], [address], 11/19/2024 10:07:58 11/19/1911/19/2024 CBC WITH DIFFE RENTI AL/PL ATELE T MCHC 32.3 g/dL 31.5-3 5.7 normal Not Available [facility] ([facility]) [address] [place], [address], 11/19/2024 10:07:58 11/19/19 25 11/19/2024 CBC WITH DIFFE RENTI AL/PL ATELE T RDW 12.4 % 11.7-1 5.4 Not Available [facility] ([facility]) [address] [place], [address], 11/19/2024 10:07:58 11/19/19 25 11/19/2024 CBC WITH DIFFE RENTI AL/PL ATELE T platelets 234 x10e3 /uL 150-45 0 normal Not Available [facility] ([facility]) [address] [facility], [place], [address], 11/19/2024 10:07:58 11/19/1911/19/2024 CBC WITH DIFFE RENTI AL/PL ATELE T neutrophils 39 % not estab. normal Not Available [facility] ([facility]) [address] [facility], [place], [address], 11/19/2024 10:07:58 11/19/19 25 11/19/2024 CBC WITH DIFFE RENTI AL/PL ATELE T lymphs 46 % not estab. normal Not Available [facility] ([facility]) [address] [facility], [place], [address], 11/19/2024 10:07:58 11/19/19 25 11/19/2024 CBC WITH DIFFE RENTI AL/PL ATELE T monocytes 12 % not estab. normal Not Available [facility] ([facility]) [address] [facility], [place], [address], 11/19/2024 10:07:58 11/19/1911/19/2024 CBC WITH DIFFE RENTI AL/PL ATELE T eos 2 % not estab. normal Not Available [facility] ([facility]) [address] [facility], [place], [address], 11/19/2024 10:07:58 11/19/1911/19/2024 CBC WITH DIFFE RENTI AL/PL ATELE T basos 1 % not estab. normal Not Available [facility] ([facility]) [address] [facility], [place], [address], 11/19/2024 10:07:58 11/19/19 25 11/19/2024 CBC WITH DIFFE RENTI AL/PL ATELE T immature cells NEON INSTALLER Not Available [facility] ([facility]) [address] [place], [address], 11/19/2024 10:07:58 11/19/19 25 11/19/2024 CBC WITH DIFFE RENTI AL/PL ATELE T neutrophils (absolute) 3.2 x10e3 /uL 1.4-7. 0 normal Not Available [facility] ([facility]) [address] [place], [address], 11/19/2024 10:07:58 11/19/19 25 11/19/2024 CBC WITH DIFFE RENTI AL/PL ATELE T lymphs (absolute) 3.8 x10e3 /uL 0.7-3. 1 above high normal Not Available [facility] ([facility]) [address] [place], [address], 11/19/2024 10:07:58 11/19/19 25 11/19/2024 CBC WITH DIFFE RENTI AL/PL ATELE T monocytes(ab solute) 1.0 x10e3 /uL 0.1-0. 9 above high normal Not Available [facility] ([facility]) [address] [place], [address], 11/19/2024 10:07:58 11/19/19 25 11/19/2024 CBC WITH DIFFE RENTI AL/PL ATELE T eos (absolute) 0.1 x10e3 /uL 0.0-0. 4 normal Not Available [facility] ([facility]) [address] [place], [address], 11/19/2024 10:07:58 11/19/19 25 11/19/2024 CBC WITH DIFFE RENTI AL/PL ATELE T baso (absolute) 0.1 x10e3 /uL 0.0-0. 2 normal Not Available [facility] ([facility]) [address] [place], [address], 11/19/2024 10:07:58 11/19/19 25 11/19/2024 CBC WITH DIFFE RENTI AL/PL ATELE T immature granulocytes 0 % not estab. Not Available [facility] ([facility]) [address] [facility], [place], [address], 11/19/2024 10:07:58 11/19/19 25 11/19/2024 CBC WITH DIFFE RENTI AL/PL ATELE T immature grans (abs) 0.0 x10e3 /uL 0.0-0. 1 Not Available [facility] ([facility]) [address] [facility], [place], [address], 11/19/2024 10:07:58 11/19/19 25 11/19/2024 CBC WITH DIFFE RENTI AL/PL ATELE T NRBC NEON INSTALLER Not Available [facility] ([facility]) [address] [facility], [place], [address], 11/19/2024 10:07:58 11/19/1911/19/2024 CBC WITH DIFFE RENTI AL/PL ATELE T hematology comments: NEON INSTALLER Not Available [facility] ([facility]) [address] [facility], [place], [address], 11/19/2024 10:07:58 11/19/19 25 11/19/2024 COMP. METAB OLIC PANEL (14) glucose 88 mg/dL 70-99 normal Not Available [facility] ([facility]) [address] [facility], [place], [address], 11/19/2024 10:07:59 11/19/19 25 11/19/2024 COMP. METAB OLIC PANEL (14) BUN 15 mg/dL 6-24 normal Not Available [facility] ([facility]) [address] [facility], [place], [address], 11/19/2024 10:07:59 11/19/19 25 11/19/2024 COMP. METAB OLIC PANEL (14) creatinine 0.59 mg/dL 0.57-1 .00 normal Not Available [facility] ([facility]) [address] [place], [address], 11/19/2024 10:07:59 11/19/19 25 11/19/2024 COMP. METAB OLIC PANEL (14) eGFR 106 mL/mi n/1.7 3 >59 normal Not Available [facility] ([facility]) [address] [place], [address], 11/19/2024 10:07:59 11/19/19 25 11/19/2024 COMP. METAB OLIC PANEL (14) BUN/creatini ne ratio 25 9-23 above high normal Not Available [facility] ([facility]) [address] [place], [address], 11/19/2024 10:07:59 11/19/19 25 11/19/2024 COMP. METAB OLIC PANEL (14) sodium 133 mmol/ L 134-14 4 below low normal Not Available [facility] ([facility]) [address] [place], [address], 11/19/2024 10:07:59 11/19/19 25 11/19/2024 COMP. METAB OLIC PANEL (14) potassium 4.6 mmol/ L 3.5-5. 2 normal Not Available [facility] ([facility]) [address] [place], [address], 11/19/2024 10:07:59 11/19/19 25 11/19/2024 COMP. METAB OLIC PANEL (14) chloride 99 mmol/ L 96-106 normal Not Available [facility] ([facility]) [address] [place], [address], 11/19/2024 10:07:59 11/19/19 25 11/19/2024 COMP. METAB OLIC PANEL (14) carbon dioxide, total 19 mmol/ L 20-29 below low normal Not Available [facility] ([facility]) [address] [facility], [place], [address], 11/19/2024 10:07:59 11/19/19 25 11/19/2024 COMP. METAB OLIC PANEL (14) calcium 9.1 mg/dL 8.7-10 .2 normal Not Available [facility] ([facility]) [address] [facility], [place], [address], 11/19/2024 10:07:59 11/19/19 25 11/19/2024 COMP. METAB OLIC PANEL (14) protein, total 6.7 g/dL 6.0-8. 5 normal Not Available [facility] ([facility]) [address] [facility], [place], [address], 11/19/2024 10:07:59 11/19/19 25 11/19/2024 COMP. METAB OLIC PANEL (14) albumin 4.2 g/dL 3.8-4. 9 normal Not Available [facility] ([facility]) [address] [facility] [place], [address], 11/19/2024 10:07:59 11/19/19 25 11/19/2024 COMP. METAB OLIC PANEL (14) globulin, total 2.5 g/dL 1.5-4. 5 Not Available [facility] ([facility]) [address] [facility] [place], [address], 11/19/2024 10:07:59 11/19/19 25 11/19/2024 COMP. METAB OLIC PANEL (14) bilirubin, total <0.2 mg/dL 0.0-1. 2 Not Available [facility] ([facility]) [address] [facility], [place], [address], 11/19/2024 10:07:59 11/19/19 25 11/19/2024 COMP. METAB OLIC PANEL (14) alkaline phosphatase 65 IU/L 49-135 normal Not Available [facility] ([facility]) [address] [facility] [place], [address], 11/19/2024 10:07:59 11/19/19 25 11/19/2024 COMP. METAB OLIC PANEL (14) AST (SGOT) 14 IU/L 0-40 normal Not Available [facility] ([facility]) [address] [facility] [place], [address], 11/19/2024 10:07:59 11/19/19 25 11/19/2024 COMP. METAB OLIC PANEL (14) ALT (SGPT) 9 IU/L 0-32 normal Not Available [facility] ([facility]) [address] [place], [address], 11/19/2024 10:07:59 11/19/19 25 11/19/2024 LIPID PANEL cholesterol, total 185 mg/dL 100-19 9 normal Not Available [facility] ([facility]) [address] [place], [address], 11/19/2024 10:08:00 11/19/19 25 11/19/2024 LIPID PANEL triglyceride s 85 mg/dL 0-149 normal Not Available [facility] ([facility]) [address] [place], [address], 11/19/2024 10:08:00 11/19/19 25 11/19/2024 LIPID PANEL HDL cholesterol 86 mg/dL >39 normal Not Available [facility] ([facility]) [address] [place], [address], 11/19/2024 10:08:00 11/19/19 25 11/19/2024 LIPID PANEL VLDL cholesterol shalonda 15 mg/dL 5-40 Not Available [facility] ([facility]) [address] [place], [address], 11/19/2024 10:08:00 11/19/19 25 11/19/2024 LIPID PANEL LDL chol calc ([facility]) 84 mg/dL 0-99 Not Available [facility] ([facility]) [address] [facility], [place], [address], 11/19/2024 10:08:00 11/19/19 25 11/19/2024 LIPID PANEL LDL calc comment: NEON INSTALLER Not Available [facility] ([facility]) [address] [facility], [place], [address], 11/19/2024 10:08:00 11/19/19 25 11/19/2024 VITAM IN B12 AND FOLAT E vitamin B12 628 pg/mL 232-12 45 normal Not Available [facility] ([facility]) [address] [facility], [place], [address], 11/19/2024 10:08:00 11/19/1911/19/2024 VITAM IN B12 AND FOLAT E folate (folic acid), serum 9.3 NG/mL >3.0 normal A serum folat e bassem ntrat ion of less than 3.1 ng/mL is consi dered to repre sent clini shalonda defic iency . Not Available [facility] ([facility]) [address] [facility], [place], [address], 11/19/2024 10:08:00 11/19/19 25 11/19/2024 HCV ANTIB DARIELA RFX TO QUANT PCR HCV Ab Non Reacti ve non reacti ve Not Available [facility] ([facility]) [address] [facility], [place], [address], 11/19/2024 10:08:01 11/19/1911/19/2024 HCV ANTIB DARIELA RFX TO QUANT PCR interpretati on: Commen t Not infec shania with HCV unles s early or acute infec tion is suspe cted (whic h may be delay ed in an immun ocomp romis ed indiv idual ), or other evide nce exist s to indic ate HCV infec tion. Not Available [facility] ([facility]) [address] [facility], [place], [address], 11/19/2024 10:08:01 11/19/1911/19/2024 HEMOG LOBIN A1C hemoglobin A1C 5.1 % 4.8-5. 6 normal Predi abete s: 5.7 - 6.4 Diabe blank: >6.4 Glyce beatriz contr ol for adult s with diabe blank: <7.0 Not Available [facility] ([facility]) [address] [facility], [place], [address], 11/19/2024 10:08:02 11/19/1911/19/2024 VITAM IN D, 25-HY [...] 1. IOM (Inst itute of Medic ine). 2009. Dieta ry refer ence intak es for calci um and D. Foreign wong [place]: [facility] . 2. Camille schofield [place], Meli maher [place], Matt off-F errar i FERNANDES, et al. Evalu ation , treat ment, and preve ntion of vitam in D defic iency : an Endoc rine Socie ty clini shalonda pract ice guide line. JCEM. 2010; 96(7) :1911 -30. Not Available [facility] ([facility]) [address] [facility], [place], [address], 11/19/2024 10:08:02 11/19/19 25 11/19/2024 HIV AB/P2 4 AG WITH REFLE X HIV Ab/P24 Ag screen Non Reacti ve non reacti ve HIV-1 /HIV- 2 antib odies and HIV-1 p24 antig en were NOT detec shania. There is no labor atory evide nce of HIV infec tion. HIV Negat baljinder Not Available [facility] ([facility]) [address] [facility], [place], [address], 11/19/2024 10:08:03 11/19/1911/18/2024 urina lysis , dipst ick Leukocytes Trace Not Available [address], [address], 11/18/2024 14:29:40 11/19/1911/18/2024 urina lysis , dipst ick Nitrite negati ve Not Available [address], [address], 11/18/2024 14:29:40 11/19/1911/18/2024 urina lysis , dipst ick Urobilinogen .2 Not Available [address], [address], 11/18/2024 14:29:40 11/19/19 25 11/18/2024 urina lysis , dipst ick Protein Negati ve Not Available [address], [address], 11/18/2024 14:29:40 11/19/1911/18/2024 urina lysis , dipst ick pH 8.0 Not Available [address], [address], 11/18/2024 14:29:40 11/19/1911/18/2024 urina lysis , dipst ick Blood Modera te Not Available [address], [address], 11/18/2024 14:29:40 11/19/1911/18/2024 urina lysis , dipst ick Specific [place] 1.020 Not Available [address], [address], 11/18/2024 14:29:40 11/19/1911/18/2024 urina lysis , dipst ick Ketone Small Not Available [address], [address], 11/18/2024 14:29:40 11/19/1911/18/2024 urina lysis , dipst ick Bilirubin Negati ve Not Available [address], [address], 11/18/2024 14:29:40 11/19/1911/18/2024 urina lysis , dipst ick Glucose Negati ve Not Available [address], [address], 11/18/2024 14:29:40 11/19/1911/18/2024 urina lysis , dipst ick Appearance Clear Not Available [address], [address], 11/18/2024 14:29:40 11/19/1911/18/2024 urina lysis , dipst ick Color Dark Yellow Not Available [address], [address], 11/18/2024 14:29:40 09/03/19 25 09/02/2024 XR, chest No observ ation record ed. [facility] (Radiology) [address] , [place], [address], 09/10/2024 10:09:59 Result Notes None recorded. Problems Name Problem SNOMED Code Status Onset Date Resolution Date Notes Provider Name and Address Organization Details Recorded Time Nicotine dependen ce 82634761 Active 2020 Problem Code: F17.200; Problem Code Type: ICD-10; Not Available [facility] 21:08:21 Foot joint - soft tissue swelling 652143229 Completed 202004/16/2021 Not Available [facility] 21:08:21 Pain in left knee Completed 202001/14/2022 Problem Code: M25.562; Problem Code Type: ICD-10; JUDITH garcia [employer] 08:35:10 Body mass index 25-29 [facility] 8084[facility]50 Completed 202004/16/2021 Problem Code: Z68.28; Problem Code Type: ICD-10; Not Available [facility] 21:08:22 Myositis 71442252 Completed 202101/14/2022 Problem Code: M60.9; Problem Code Type: ICD-10; JUDITH garcia [employer]. 08:35:10 Cough 55270168 Completed 202101/14/2022 Problem Code: R05; Problem Code Type: ICD-10; Sejal garcia [employer]. 4 10:57:58 Disorder of upper respirat ory system 296271477 Completed 202108/24/2021 Problem Code: J06.9; Problem Code Type: ICD-10; Not Available [facility] 21:08:21 Wheezing 27312992 Completed 202101/14/2022 Problem Code: R06.2; Problem Code Type: ICD-10; JUDITH garcia [employer]. 08:35:10 Neck pain 40439544 Completed 202101/14/2022 JUDITH garcia [employer] 2 08:35:10 Acute low back pain 916481931 Completed 202101/14/2022 JUDITH garcia, [employer] 2 08:35:10 Tingling of skin 564027904 Completed 202101/14/2022 Problem Code: R20.2; Problem Code Type: ICD-10; JUDITH garcia, [employer] 2 08:35:10 Body mass index 25-29 - overweig ht 746256324 Active 2021 Problem Code: Z68.25; Problem Code Type: ICD-10; Not Available [facility] 21:08:22 Anxiety 02537795 Active 2022 JUDITH garcia, [employer] 3 10:13:33 Postmeno pausal bleeding 16051293 Active 2023 Young Rapp II, MD [address] [place] [address], [address] , [employer] 4 11:41:09 Abnormal uterine bleeding 18255260106 100 Active 2023 Young Rapp II, MD [address] [place] [address], [address] , [employer] 4 10:06:02 Long-ter m drug therapy Active 2023 Sejal Guardado jose, [employer] 4 11:25:20 Cough 73728667 Active 2023 Problem Code: R05; Problem Code Type: ICD-10; Sejal garcia, [employer] 4 10:57:58 Hyperlip idemia 85240955 Active 2024 Sejal garcia, [employer] 5 14:18:37 Acute cough Active 2024 Sejal Poquott [employer] 5 09:48:45 Depressi ve disorder 48144117 Active 2024 Sejal Guardado [employer] 5 10:11:24 Fatigue 77124131 Active 2024 Sejal Guardado [employer]. 14:18:37 Hypergly cemia 36450860 Active 2024 Sejal Guardado [employer]. 14:18:37 Problem Notes None recorded. Procedures Surgical History Date Name Laterality Status Provider Name and Address Organization Details Recorded Time 10/03/19 24 HYSTEROSCOPIC TISSUE REMOVAL (SURG) completed SANDRA Chu Shu 10/03/2023 10:20:16 05/05/19 24 Date of Last Pap Smear completed [facility] 08/26/2023 14:06:18 01/27/20 21 ligation of bilateral fallopian tubes completed Not Available [facility] 10/23/2021 22:56:08 thyroidectomy completed [facility] 09/15/2023 11:15:28 Breast Biopsy completed [facility] [employer] 09/20/2024 10:47:29 Tonsillectomy completed [employer] [facility] 09/20/2024 10:47:29 Imaging Results None recorded. Procedure Notes None recorded. Medical Equipment None Reported. Allergies Allergen ID Allergen Name Allergen Category Reaction Reaction Severity Criticality Documentation Date Start Date Code Code System Note Provider Name and Address Organization Details Recorded Time 86681 Product containin g penicilli n (product) medicatio n rash Not available Not available 05/01/2023 60184 8001 SNOMED Kaseyjose Nicole [employer]. 10:52:22 Medications Name Sig Start Date Stop Date Status Note LastModified by Organization Details LastModified Time celecoxib 200 mg capsule TAKE 1 CAPSULE 1 TIME EACH DAY 11/28 /2022 completed Not Available Not Available Not Available [...] completed Not Available Not Available Not Available [employer] Mask active Not [...] Details Last Updated DateTime 5 167.64 cm 27.8 kg/m2 73287.8 9 g 93 /min 97 % 97 % 112/68 mm[Hg] [employer] 5 11:05:35 Date Recorded Body height Body mass index (BMI) Body weight Heart rate Oxygen saturation Oxygen saturation in Arterial blood by Pulse oximetry Systolic And Diastolic Provider Name and Address Organization Details Last Updated DateTime 5 167.64 cm 28 kg/m2 09872.2 8 g 96 /min 96 % 96 % 132/74 mm[Hg] [employer] 5 10:57:10 Date Recorded Body height Body mass index (BMI) Body weight Body temperature Heart rate Oxygen saturation Oxygen saturation in Arterial blood by Pulse oximetry Systolic And Diastolic Provider Name and Address Organization Details Last Updated DateTime 5 167.64 cm 27.8 kg/m2 95791.8 9 g 97.6 [degF] 91 /min 94 % 94 % 118/79 mm[Hg] [employer] 5 13:48:16 Date Recorded Body height Body mass index (BMI) Body weight Heart rate Oxygen saturation Oxygen saturation in Arterial blood by Pulse oximetry Systolic And Diastolic Provider Name and Address Organization Details Last Updated DateTime 5 167.64 cm 27.7 kg/m2 53320.4 g 87 /min 94 % 94 % 123/77 mm[Hg] Sejal Guardado [employer] 5 14:17:12 Date Recorded Body height Body mass index (BMI) Body weight Heart rate Oxygen saturation Oxygen saturation in Arterial blood by Pulse oximetry Body temperature Systolic And Diastolic Provider Name and Address Organization Details Last Updated DateTime 5 167.64 cm 28.2 kg/m2 30268.6 6 g 97 /min 95 % 95 % 97 [degF] 118/79 mm[Hg] Sejal Guardado [employer]. 5 11:11:47 Social History Question Answer Notes LastModified by Organizat ion Details LastModified Time Tobacco Smoking Status Current Every Day Smoker JUDITH garcia [employer]. 01/14/2022 08:37:42 Do You Have An Advance Directive? No [email or web address] Information n ot available 01/14/2022 Is Your Home Air Conditioned? Yes Information not available 09/20/2024 Do You Wear A Helmet When Biking? No Information not available 09/20/2024 Are You Blind Or Do You Have Difficulty Seeing? No [email or web address] Information n ot available 01/14/2022 What Is Your Level Of Caffeine Consumption? Moderate Information not available 07/02/2022 In The 14 Days Before Symptom Onset, Have You Had Close Contact With A Laboratory-confirm ed COVID-19 While That Case Was Ill? No Information n ot available 01/14/2022 In The 14 Days Before Symptom Onset, Have You Had Close Contact With A Person Who Is Under Investigation For COVID-19 While That Person Was Ill? No [email or web address] Information not available 01/14/2022 Have You Been To An Area Known To Be High Risk For COVID-19? No [email or web address] Information not available 01/14/2022 Are You Deaf Or Do You Have Serious Difficulty Hearing? No [email or web address] Information not available 01/14/2022 What Type Of Diet Are You Following? REGULAR [email or web address] Information n ot available 01/14/2022 What Is The Highest Grade Or Level Of School You Have Completed Or The Highest Degree You Have Received? [id number] Information not available 11/18/2024 Have There Been Any Changes To Your Family Or Social Situation? No [email or web address] Information no t available 03/08/2022 Are There [...] Do You Have A Medical Power Of Heavy Forger? No [email or web address] Information not available 01/14/2022 What Was The Date Of Your Most Recent Tobacco Screening? 12/17/2024 Information not available 12/17/2024 What Is Your Current Pack Years? 30ormorepacky ears [email or web address] Information not available 01/14/2022 Do You Have Any Pets? Yes Information not available 09/20/2024 Do You Use Protection During Sex? No Information not available 09/20/2024 What Is Your Relationship Status? Single Information not available 09/20/2024 Have You Repeated Any Grades? No Information not available 09/20/2024 Do You Use Your Seat Belt Or Car Seat Routinely? Yes [email or web address] Information not available 01/14/2022 Are You Sexually [...] Much Tobacco Do You Smoke? 1 PPD [email or web address] Information not available 01/14/2022 What Types Of [...] 11/18/2024 Have You Recently Traveled Abroad? No [email or web address] Information not available 01/14/2022 Do You Have Difficulty Walking Or Climbing Stairs? No Information not available 01/14/2022 Are You Currently In School? No [email or web address] Information not available 03/08/2022 Do You Have Any Dietary Restrictions? No [email or web address] Information not available 01/14/2022 Sex: Unknown Functional Status Question Answer Note LastModified by [email or web address] Details LastModified Time Do you use any illicit or recreational drugs? No Information not available 07/02/2022 Do you or have you ever used any other forms of tobacco or nicotine? No Information not available 11/18/2024 What is your level of alcohol consumption? None Information not available 01/14/2022 Are you currently employed? No Information not available 09/20/2024 Do you have transportation difficulties? No [email or web address] Information not available 01/14/2022 Are you able to walk independently without assistance or assistive devices? YESWOREST [email or web address] Information not available 01/14/2022 Do you have difficulty doing errands alone? No Information not available 01/14/2022 Are you able to care for yourself independently? Yes [email or web address] Information not available 01/14/2022 Do you have difficulty dressing, bathing, grooming, or toileting? No Information not available 01/14/2022 Mental Status Question Answer Note LastModified by Organizat ion Details LastModified Time Do you feel stressed (tense, restless, nervous, or anxious, or unable to sleep at night)? [id number] Information not available 11/18/2024 Do you have difficulty concentrating, remembering or making decisions? No [email or web address] Information no t available 01/14/2022 Are you [...] trivalent, PF 02/03/2024 completed Estefany Obregon APRN [address] [place] [address], [address], [facility] 02/03/2024 09:51:27 Influenza, MDCK, quadrivalent, PF 11/26/2019 completed JUDITH garcia [facility] 01/14/2022 09:11:51 Influenza, MDCK, quadrivalent, PF 11/12/2016 completed JUDITH garcia [facility] 01/14/2022 09:11:51 Hep A, adult 11/18/2018 completed JUDITH garcia, [facility] 01/14/2022 09:11:51 Influenza, MDCK, quadrivalent, PF 12/05/2017 completed JUDITH garcia [facility], [employer]. 01/14/2022 09:11:51 tetanus toxoid, adsorbed 07/19/2007 completed JUDITH garcia, [facility] 01/14/2022 09:11:51 Influenza, MDCK, quadrivalent, PF 11/13/2021 completed JUDITH garcia, [facility] 01/14/2022 09:11:51 Hep A, adult 12/05/2017 completed JUDITH ROBERTS null, [facility] 01/14/2022 09:11:51 Influenza, split virus, quadrivalent, PF 12/26/2020 completed JUDITH garcia, [facility] 01/14/2022 09:11:51 Influenza, split virus, trivalent, PF 11/18/2024 completed Sejal garcia, [facility] 11/18/2024 14:42:04 Influenza, MDCK, quadrivalent, PF 10/17/2022 completed Kasey garcia, [facility], [employer]. 12/19/2022 11:22:13 Past Encounters Encounter ID Performer Location Encounter Start Date Encounter Closed Date Diagnosis/Indication Diagnosis SNOMED-CT Code Diagnosis ICD10 Code Diagnosis IMO Codes Diagnosis Note [id number] [place] [id number] 01/14/2022 08:49:36 01/14/2022 09:34:37 Hypertensive disorder 74537371 I10 Hypothyroidism 41632168 E03.9 Hyperlipidemia 96687272 E78.5 Seizure 83961857 R56.9 Migraine 97143705 G43.90 9 Weight loss 51784104 R63 .4 Body mass index 20-24 - normal 363767694 Z68.23 [id number] [place] [id number] 02/05/2022 07:41:28 02/05/2022 08:33:03 Anxiety disorder 239746128 F41.9 Pain of mu ltiple joints 62149204 M25.50 Hyperthyroidism 63421117 E05.90 Essential hypertension 07877288 I10 Dysthymia 03132856 F34.1 Hyperlipidemia 18664833 E78.5 Long-term drug therapy 526968782 Z79.899 Body mass index 20-24 - normal 847037770 Z68.23 [id number] [place] [address] 03/08/2022 10:27:58 03/08/2022 10:42:39 Anxiety disorder 911250453 F41.9 Hyperthyroidism 01134636 E05.90 Essential hypertension 27409517 I10 Dysthymia 59526829 F34.1 Hyperlipidemia 89397320 E78.5 Body mass index 20-24 - normal 406863053 Z68.23 [id number] [place] [address] 03/25/2022 09:49:49 03/25/2022 10:40:40 Acute sinusitis 61732191 J01.90 Low back pain 242996881 M54.50 [id number] [place] [address] 05/03/2022 09:01:57 05/03/2022 09:15:36 Hypothyroidism 90232832 E03.9 Anxiety disorder 06 F41.9 Body mass index 20-24 - normal 962106020 Z68.23 [id number] [place] [address] 05/14/2022 15:26:35 05/14/2022 16:00:45 Hypothyroidism 09980939 E03.9 Body mass index 20-24 - normal 947055305 Z68.23 [id number] [place] [address] 07/02/2022 11:38:33 07/02/2022 12:06:00 Anxiety disorder 349179403 F41.9 Hyperthyroidism 25118797 E05.90 Hyperlipidemia 72820135 E78.5 Body mass index 25-29 - overweight 537403479 Z68.25 [id number] Estefany Obregon, [address] [address] 08/02/2022 16:49:33 08/02/2022 17:53:37 Primary insomnia 0626845 F51.01 Fatigue 53401236 R53.83 [id number] [place] [address] 09/05/2022 16:35:16 09/05/2022 17:11:24 Anxiety disorder 327781896 F41.9 Essential hypertension 28783272 I10 [id number] [place] [address] 10/17/2022 14:39:05 10/17/2022 16:02:11 Viral screening 728729368 Z11.52 Weight gain 0989542 R63. 5 Body mass index 25-29 - overweight 050291925 Z68.25 [id number] Estefany Obregon [place] [id number] 12/19/2022 11:16:30 12/19/2022 11:50:13 Low back pain 084799953 M54.50 Pain of mu ltiple joints 45494600 M25.50 Spasm of back muscles 20 9803940 M62.830 Body mass index 25-29 - overweight 547030684 Z68.25 [id number] Estefany Obregon [place] [address] 01/17/2023 09:21:45 01/17/2023 11:15:54 Vitamin D deficiency 53598841 E55.9 Hyperlipidemia 69979311 E78.5 Dysthymia 73141534 F34.1 Essential hypertension 11351833 I10 Hyperthyroidism 38159309 E05.90 Pain of mu ltiple joints 70853817 M25.50 Body mass index 25-29 - overweight 134573870 Z68.25 [id number] Estefany Obregon [address] [address] 03/17/2023 13:26:05 03/17/2023 13:59:37 Long-term drug therapy 406766197 Z79.899 Hyponatremia 46682328 E8 7.1 Body mass index 25-29 - overweight 917038178 Z68.25 [id number] [place] [address] 03/28/2023 15:27:59 03/28/2023 16:22:20 Skin tag 002621452 L91.8 Body mass index 25-29 - overweight 383076355 Z68.25 [id number] Estefany Obregon [place] [address] 04/21/2023 14:52:41 04/21/2023 16:08:12 Fatigue 13400248 R53.83 Essential hypertension 43337160 I10 Hyponatremia 42295965 E8 7.1 Body mass index 25-29 - overweight 321546491 Z68.25 [id number] [place] [address] 05/01/2023 10:44:35 05/01/2023 11:25:30 Abdominal pain 01478073 R10.9 Gynecologi c examination 11784434 Z01.419 Body mass index 25-29 - overweight 875878713 Z68.25 [id number] [place] [address] 07/18/2023 11:41:27 07/18/2023 12:53:03 Fatigue 49129095 R53.83 Hyperlipidemia 71601359 E78.5 Screening for malignant neoplasm of colon 003418279 Z12.11 Hyponatremia 92091862 E8 7.1 Noncomplia nce with medication regimen 313576279 Z91.148 Body mass index 25-29 - overweight 656756117 Z68.25 [id number] [place] [address] 08/08/2023 17:18:20 08/08/2023 17:44:28 Lower respiratory tract infection 50520043 J22 Abnormal v aginal bleeding 691007821 N93.9 Body mass index 25-29 - overweight 072864272 Z68.25 [id number] Estefany Obregon [place] [address] 08/11/2023 12:55:55 08/11/2023 13:43:04 Postmenopausal bleeding 43411672 N95.0 Fatigue 64523453 R53.83 Body mass index 25-29 - overweight 720449433 Z68.25 [id number] Young Rapp II, MD [address],[place] [address] 09/15/2023 10:51:45 09/15/2023 11:45:12 Gynecologic examination 91593054 Z01.419 Postmenopa usal bleeding 72587143 N95.0 Will see her back in 1 week to go over biopsy results. We will need to look at the records from the hospital at that time to see what the ultrasound shows. [id number] Young Rapp II, MD [address],[place] [address] 09/22/2023 12:55:24 09/22/2023 14:36:06 Postmenopausal bleeding 73545663 N95.0 Biopsy results are reassuring so we just need to try to get the bleeding stopped. I recommende d control pills. 3 pills a day for 2 days then 2 a day for 5 days and then 1 a day through 2 packs. If this does not resolve, she may need a MyoSure. [id number] Young Rapp II, MD [address],[place] [address] 10/02/2023 12:47:38 10/02/2023 13:35:05 Abnormal uterine bleeding 6096392547 9100 N93.9 [id number] Estefany Sabas [place] [id number] 10/13/2023 10:59:38 10/13/2023 11:16:42 Long-term drug therapy 073718162 Z79.899 Patient collected the urine non chaperoned , when I got the urine out of the box, it seemed cold to the touch, I transferre d to another container with a temp strip, the urine did not even register on the temp strip so it was not within normal temp. Patient is due to come back on for a f/u appt, I will have her recollect at that visit and if there is any suspicion at that time, we will order blood drug testing. [id number] [place] [address] 11/04/2023 11:24:07 11/04/2023 12:13:11 Substance misuse monitoring status 939244529 Z71.51 Attempted to collect urine for UDS, pt did not leave a sufficient sample. QNS Fatigue 64029252 R53.83 Vitamin B deficiency 479 27528 E53.9 Vitamin D deficiency 347 90484 E55.9 Anxiety disorder 3394758 06 F41.9 Hyperthyroidism 72386464 E05.90 Essential hypertension 42937536 I10 Hyperlipidemia 54196366 E78.5 Body mass index 25-29 - overweight 339475521 Z68.25 [id number] [place] [address] 01/05/2024 10:28:07 01/05/2024 11:40:17 Cough 33882488 R05.9 Acute sinusitis 88035278 J01.90 Body mass index 25-29 - overweight 999794753 Z68.25 [id number] [place] [address] 02/03/2024 08:42:51 02/03/2024 11:23:41 Pain of left knee joint 1299985866 01926 M25.562 Anxiety disorder 5580280 06 F41.9 Hyperthyroidism 81105813 E05.90 Essential hypertension 83385472 I10 Dysthymia 81031749 F34.1 Hyperlipidemia 86012440 E78.5 Vitamin D deficiency 347 40005 E55.9 Administra tion of influenza vaccine 39736420 Z23 Body mass index 25-29 - overweight 135317095 Z68.25 [id number] Estefany Obregon [place] [address] 04/01/2024 12:31:43 04/01/2024 13:28:11 Fatigue 54349078 R53.83 Hyperlipidemia 06163399 E78.5 Vitamin D deficiency 347 89670 E55.9 Anxiety disorder 2926805 06 F41.9 Essential hypertension 34959340 I10 Hypothyroidism 94714253 E03.9 Body mass index 25-29 - overweight 959104498 Z68.25 [id number] Estefany Obregon [place] [address] 04/05/2024 15:02:17 04/05/2024 15:51:41 Cough 15763583 R05.9 Lower resp iratory tract infection 09787265 J22 Body mass index 20-24 - normal 340579330 Z68.23 [id number] Estefany Obregon [place] [address] 04/12/2024 10:33:51 04/12/2024 11:28:50 Long-term drug therapy 365831449 Z79.899 Patient was called today at 9:57 am for pill count, transport had her here at 10:50 am. She had +11 discrepanc y, she states that she had some left over from last month. Sending urine out for drug screen [id number] Estefany Obregon [place] [address] 04/19/2024 12:38:28 04/19/2024 15:35:39 Lower respiratory tract infection 68764965 J22 Cough 13481497 R05.9 Body mass index 20-24 - normal 601240570 Z68.23 [id number] Estefany Obregon [place] [address] 0 04/26/2024 09:12:03 04/26/2024 09:49:29 Cough 81041917 R05.9 Lower resp iratory tract infection 39186173 J22 Body mass index 20-24 - normal 011608250 Z68.23 [id number] [place] [address] 05/31/2024 12:39:16 05/31/2024 13:38:03 Hyperlipidemia 03983241 E78.5 Acute righ t otitis media 781375444 H66.91 Hyperthyroidism 19573637 E05.90 Essential hypertension 04439756 I10 Dysthymia 13103937 F34.1 Vitamin D deficiency 347 53739 E55.9 Body mass index 20-24 - normal 315336372 Z68.23 [id number] [place] [address] 07/20/2024 10:34:28 07/20/2024 12:04:29 Acute bilateral otitis media 393669652 H66.93 4508438 Hyperlipidemia 59079384 E78.5 Anxiety 26215027 F41.9 53816 Overweight in adulthood with body mass index of 25 or more but less than 30 107299464 Z68.25 591409 Herpes simplex 01118991 B00.9 [id number] [place] [address] 08/03/2024 09:21:24 08/03/2024 10:04:18 Acute cough 4942703823 46604418 R05.0 3699999174 Bronchitis 40337890 J40 73336 Overweight in adulthood with body mass index of 25 or more but less than 30 703897768 Z68.27 540627 [id number] [place] [address] 09/10/2024 10:54:00 09/10/2024 11:38:20 Muscle pain 83061996 M79.10 11935 Overweight in adulthood with body mass index of 25 or more but less than 30 716664128 Z68.27 338835 [id number] Estefany Obregon, [place] [address] 09/20/2024 10:43:29 09/20/2024 11:16:33 Anxiety 11103752 F41.9 UDS UTD until 04/12/2025 Hyperthyroidism 28973160 E05.90 Essential hypertension 89849913 I10 Dysthymia 03322264 F34.1 Hyperlipidemia 03150250 E78.5 Lower resp iratory tract infection 81229407 J22 Vitamin D deficiency 347 05723 E55.9 Overweight in adulthood with body mass index of 25 or more but less than 30 933561171 Z68.28 263190 [id number] [place] [address] 10/21/2024 13:28:41 10/21/2024 14:33:08 Acute cough 8373093173 46258792 R05.2 4866356063 Acute bact erial sinusitis 65791147 J01.90 B96.89 61927 Overweight in adulthood with body mass index of 25 or more but less than 30 979283059 Z68.27 505001 [id number] [place] [address] 11/18/2024 13:37:18 11/18/2024 14:44:08 Active immunization 26316513 Z23 27299820 Hyperlipidemia 93622969 E78.5 Fatigue 65597735 R53.83 Hyperglycemia 86493404 R 73.9 Mammogram declined 44135 5004 Z53.20 8860055 Dysuria 71882496 R30.0 45072 Viral scre ening status 861198951 Z11.59 999242 HIV screening 512748709 Z11.4 067401 Herpes simplex 62830530 B00.9 Overweight in adulthood with body mass index of 25 or more but less than 30 773927081 Z68.27 128629 [id number] [place] [address] 12/17/2024 10:50:52 12/17/2024 11:38:22 Bronchitis 21484911 J40 64097 Accidental fall 90326257 2 W19.XXXA 3153144 Skin tag 113086489 L91.8 57820 Overweight in adulthood with body mass index of 25 or more but less than 30 503204241 Z68.28 330285 Health Concerns Section Related Observation LastModified by Organization Detai ls LastModified Time None Recorded Concern Status LastModified by Organization Details LastModified Time None Recorded Advance Directives Directive N: Payers Insurance Date Sequence Insurance Name Policy Number Policy Jennings Covered Member ID Jennings Member ID Guarantor Name 12/29/2024 [place]ICAID[place] Dolores Hernández [id number] Dolores Hernández 12/29/2024 1 [employer] [place] (MEDICA[place] HMO) Dolores Hernández [id number] Dolores Hernández Notes Date Note Type Note Provider Name and Address Organization Details Recorded Time 09/10/2024 text/html Anxiety/Depressi onRepo rted by Patient pt here today for an ER f/u. pt went to ER on 09/02 for LUE pain and cp. pt states that she was lying in bed and her arm was hurting and then it went up to her back then her chest so she went to the ER. she was r/o for MT. she was given toradol and steroid. pt states that she is feeling better but her LUE still hurts off/on just above and below elbow. not hurting today. states that she is left handed and she does sleep with her arm bend behind her head. assessment (including neuro) WNL. i will order a few days of muscle relaxer PRN to see if that helps. educated pt on new med. pt voiced understanding. return for worsening symptoms or to ER for cp. Estefany Obregon APRN [address] [place], [address], [facility] 09/10/2024 11:51:04 09/20/2024 text/html Generalized Anxi ety DisorderReported by Patient pt here today for medication refills. pt states shes doing well on current medication regime and has no new complaints today. Estefany Obregon APRN [address] [place], [address], [facility] 09/20/2024 11:37:45 10/21/2024 text/html pt here today with c/o cough, N/V/D, congestion and chills for around 1 week. rapid flu and covid neg. on exam, ears WNL, sinuses tender, throat dry, lungs decreased with ex wheezing. i will order abx and steroids. educated pt on new meds. pt voiced understanding. increase fluids. return for worsening symptoms. Estefany Obregon APRN [address] [place], [address], [employer]. 10/21/2024 15:09:01 11/18/2024 text/html pt here today for medication [...] has gotten better. Estefany Obregon APRN [address] [place], [address], [facility], [employer]. 11/18/2024 14:50:28 12/17/2024 text/html pt here today with c/o [...] it gets worse. Estefany Obregon APRN [address] [place], [address], [facility] [employer] [employer] 12/17/2024 12:50:39 OBGyn Episode Ob Episode Information Episode Created Date Number of Fetuses Patient Bloodtype Patient rh Status Prepregnancy Weight lbs Domestic Partner Domestic Partner Phone Father Name Filler Spreader Status 02/02/20 24 1 DELETED Fetus Data First Name Last Name Admitted to NICU Weight (g) Sex Living Outcome Pediatric Complications Fetus ID Race Codes Race Delivery Type [id number] Yo Calculation Initial Yo Date Initial Exam Date Initial Exam Provider Initial Ultrasound Date Last Menstrual Period Date Ultra Sound Weeks Gestation 02/02/2024 0 Eighteen To Twenty Week Yo Update Ultra Sound Date Fundal Height At Umbil Quickening Date Ultra Sound Latest Weeks Gestation Final Yo Confirmed By Final Yo Confirmed Date Final Yo Date Ultra Sound Latest Days Gestation 0 0 Menstrual History Last Menstrual Date Menses Monthly On Bcp Conception Prior Menses Frequency Hcg Plus Date Menarche Onset Age Delivery Information Delivery Date Delivery Type Labor Anesthesia Weeks Gestation Incision Type Labor Labor Length Hrs Delivered By Post Complications Tubal Sterilization Discharge Date Comments Discharge Information Feeding Method Contraceptive Method Maternal HG B and HCT Levels
--- OUTSIDE RECORDS SUMMARY | 2024-12-29 12:56 | XMS_ITS | Clinical Summary ---
Author Organization [facility] Address [address] [place] [address] Care Team Providers Care Rodding Anode Worker Name Role Phone Rafa Hoffman MD Primary Care Provider [phone] Allergies Active Allergy Reactions Criticality Noted Date Comments Erythromycin Anaphylaxis High 08/05/2017 Penicillins Rash Medium 08/05/2017 Medications clonazePAM (KlonoPIN) 1 MG tablet Take by mouth. 05/29/2015 Active divalproex (DEPAKOTE) 500 MG 24 hr tablet Take by mouth. 04/06/2015 Active ethosuximide (ZARONTIN) 250 MG capsule Take by mouth. 04/06/2015 Active levothyroxine (SYNTHROID, LEVOTHROID) 175 MCG tablet Take by mouth. 04/06/2015 Active lisinopril (PRINIVIL,ZESTRI L) 5 MG tablet Take by mouth. 04/05/2015 Active PARoxetine (PAXIL) 10 MG/5ML suspension Take by mouth. 04/06/2015 Active Active Problems Problem Noted Date Diagnosed Date Anxiety 03/12/2016 Depression 03/12/2016 Hypertension 03/12/2016 Migraine 03/12/2016 Tobacco use 03/12/2016 Seizure 03/12/2016 Paroxysmal spells 03/12/2016 Social History Tobacco Use Types Packs/Day Years Used Date Smoking Tobacco: Every Day Cigarettes 0.5 33 Smokeless Tobacco: Never Tobacco Cessation:Ready to Q uit: No; Counseling Given: No Alcohol Use Standard Drinks/Week Comments No 0 (1 standard drink = 0.6 oz pur e alcohol) Abuse Screen Answer Date Recorded Unsafe at Home or Work/School Not on file Feels Threatened by Someone? Not on file 10/2022 Does Anyone Keep You from Co ntacting Others or Doint Things Outside the Home? Not on file 11/25/2022 Physical Sign of Abuse Present Not on file 1 Housing Stability Answer Date Recorded Current Living Arrangements Not on file 10/2022 Potentially Unsafe Housing Conditions Not on lois e 11/25/2022 Family and Community Support Answer Ab e Recorded Help with Day-to-Day Activities Not on file 11/25/2022 Lonely or Isolated Not on file 11/25/2022 Employment Answer Date Recorded Do you want help finding or keeping work or a reynold b? Not on file 11/25/2022 Disabilities Answer Date Recorded Concentrating, Remembering, or Making Decisions Difficulty Not on file 11/25/2022 Doing Errands Independently Difficulty Not on fi le 11/25/2022 Education Answer Date Recorded Help with school or training? Not on file Preferred Language Not on file 11/25/2022 Comments No Sex and Gender Information Value Date Recorded Sex Assigned at Not on file Legal Sex Female 1:21 PM EDT Gender Identity Not on file Sexual Orientation Not on file Last Filed Vital Signs Vital Sign Reading Time Taken Comments Blood Pressure 116/80 05/30/2015 11:42 AM EDT Pulse 101 09/17/2017 7:05 PM EDT Temperature 36.5 C (97.7 F) 09/17/2017 3:42 PM EDT Respiratory Rate 16 09/17/2017 3:42 PM EDT Oxygen Saturation 99% 09/17/2017 3:42 PM EDT Inhaled Oxygen Concentration - - Weight 81.5 kg (179 lb 9.6 oz) 09/17/2017 3:42 P M EDT Height 162.6 cm (5' 4 ) 09/17/2017 3:42 PM EDT Body Mass Index 30.83 09/17/2017 3:42 PM EDT Plan of Treatment Health Maintenance Due Date Last Done Comments Annual Gynecologic Pelvic and Breast Exam 1969 TDAP/TD VACCINES (1 - Tdap) 01/05/1988 MAMMOGRAM 2009 COLOGUARD 2014 COLON CANCER SCREENING 5 YEAR SIGMOIDOSCOPY 2014 COLONOSCOPY [address] CANCER SCREENING 2014 CT COLONOGRAPHY 2014 FECAL OCCULT BLOOD TEST 2014 FIT Testing (1 year) 2014 ANNUAL PHYSICAL 08/05/2017 HEPATITIS C SCREENING 08/05/2017 Pneumococcal Vaccine 50+ (1 of 1 - PCV) 2019 ZOSTER VACCINE (1 of 2) 2019 INFLUENZA VACCINE 09/17/2024 Insurance [employer] Care Teams Rodding Anode Worker Relationship Specialty Start Date End Date Rafa Hoffman MD [address] [place] [address] [place] [address] PCP - General 03/27/15
--- OUTSIDE RECORDS SUMMARY | 2024-12-29 12:56 | XMS_ITS | Clinical Summary ---
Author Organization Healthcare Address [address] [place] [address] Care Team Providers Care Tubular Splitting Machine Tender Name Role Phone Rafa Hoffman MD Primary Care Provider [phone] Family History Medical History Relation Name Comments Heart Problem Father Hypertension Mother Relation Name Status Comments Father Mother Social History Tobacco Use Types Packs/Day Years Used Date Smoking Tobacco: Every Day Alcohol Use Standard Drinks/Week Comments No 0 (1 standard drink = 0.6 oz pur e alcohol) Comments Unknown Sex and Gender Information Value Date Recorded Sex Assigned at Not on file Legal Sex Female 7:33 PM EDT Gender Identity Not on file Sexual Orientation Not on file Last Filed Vital Signs Vital Sign Reading Time Taken Comments Blood Pressure - - Pulse - - Temperature - - Respiratory Rate - - Oxygen Saturation - - Inhaled Oxygen Concentration - - Weight 81.7 kg (180 lb 0.1 oz) 10/05/2014 9:13 A M EDT Height 165.1 cm (5' 5 ) 10/05/2014 9:13 AM EDT Body Mass Index 29.95 10/05/2014 9:13 AM EDT Plan of Treatment Not on file Care Teams Tubular Splitting Machine Tender Relationship Specialty Start Date End Date Rafa Hoffman MD [address] [place] [id number] PCP - General 06/30/20
--- NOTE | 2024-12-29 13:02 | ECG_ITS ---
APPROVED REPORT Exam: Resting ECG HR:84 bpm ECG Measurements Heart Rate 84 AXES OK 124 P 73 QRSd 93 QRS 54 QT 355 T 78 QTc 397 Conclusion SINUS RHYTHM INCOMPLETE RIGHT BUNDLE BRANCH BLOCK [90+ ms QRS DURATION, TERMINAL R IN V1/V2, 40+ ms S IN I/aVL/V4/V5/V6] BORDERLINE ECG UNCONFIRMED REPORT Electronically signed by : Julio White, 12/29/2024 16:52:33
--- NOTE | 2024-12-29 13:09 | XR_ITS ---
FINAL REPORT CLINICAL HISTORY: shortness of breath COMPARISON: 04/18/2019 FINDINGS: No acute pulmonary opacity is present. There is no evidence of effusion or pneumothorax. Mediastinum is unremarkable. Heart size is normal. IMPRESSION: No acute abnormality. Reviewed, Interpreted and Dictated by Zach Baker MD Transcribed by Rola Gibbs Authenticated and [facility]
[2024-12-29] MEDS: DEXAMETHASONE 4MG/ML 1ML VIAL 8 MG IV (13:19)
[2024-12-29] MEDS: MAGNESIUM SULFATE IN WATER 2 GM/50 ML PIGGYBACK IV (13:19)
[2024-12-29 13:20] LABS: Coronavirus 19, PCR Not Detected (NotDetected); Influenza A, PCR Not Detected (NotDetected); Influenza B, PCR Not Detected (NotDetected)
[2024-12-29] MEDS: IPRATROPIUM/ALBUTEROL 3 ML NEB 9 ML IH (13:20)
--- NOTE | 2024-12-29 13:20 | ED_ITS ---
<Statement entered by Julio White MD - 12/29/24 16:40> I was consulted by the LEONIDES, and we discussed the complexity of problems being addressed. I approved the treatment and management plan for this patient's care in the emergency department, thus performing a substantial portion of the medical decision making. Julio White MD Discharge Plan Disposition Patient Disposition: Home, Self-Care Prescriptions Prescriptions: New doxycycline hyclate 100 mg capsule 100 mg PO BID 7 Days Qty: 14 0RF prednisone 20 mg tablet 20 mg PO BID 5 Days Qty: 10 0RF No Action lisinopril 5 mg tablet 5 mg PO ONCE simvastatin 40 mg tablet 40 mg PO QAM clonazepam 1 mg tablet 1 mg PO QHS acyclovir 400 mg tablet 400 mg PO Q8H PRN (Reason: Cold Sores) Patient Comments: when needed for outbreak ergocalciferol (vitamin D2) [Vitamin D2] 1,250 mcg (50,000 unit) capsule 1,250 mcg PO WEEKLY Patient Comments: TAKE 1 CAPSULE 1 TIME EACH WEEK albuterol sulfate [Ventolin HFA] 90 mcg/actuation HFA aerosol inhaler 2 puff inhalation Q4H PRN (Reason: Shortness Of Breath Or Wheezing) Patient Comments: INHALE 2 PUFFS EVERY 4 HOURS NEEDED divalproex 500 mg tablet extended release 24 hr See Rx Instructions PO .COMPLEX Qty: 450 3RF Rx Instructions: 3 tablets (1500 mg) every morning and 2 tablets (1000 mg) q. evening, by mouth ethosuximide 250 mg capsule 500 mg PO BID 30 Days Qty: 360 3RF Ubrelvy 100 mg tablet 100 mg PO ONCE PRN (Reason: migraine headache) Qty: 30 3RF Rx Instructions: 100 mg orally once PRN; levothyroxine 137 mcg tablet 137 mcg PO DAILY Patient Comments: TAKE 1 TABLET ONCE A DAY IN THE MORNING ON AN EMPTY STOMACH propranolol 20 mg tablet 20 mg PO DAILY Rx Instructions: TAKE 2 TABLETS 2 TIMES EACH DAY FOR HEADACHE PREVENTION Referrals Follow up/Referrals: Estefany Obregon APRN [Primary Care Provider, Medical] - See instructions Activity Restrictions/Add. Instructions Additional Instructions/Restrictions: Increase fluids and rest. Take meds as directed. If not improving please follow-up with PCP or return to the ED. Clinical Impressions Clinical Impression: COPD with acute exacerbation Instructions Patient Instructions: Chronic Obstructive Pulmonary Disease, DI for Acute Bronchitis Print Language Print Language: Danish Discharge ED Provider: Julio White General Adult HPI <Inocencia Zhu (ED), RECYCLE WORKER - Last Filed: 12/29/24 15:25> General Chief complaint: Upper Respiratory Infection Stated complaint: chest congestion, painful cough x 7 days Time Seen by Provider: 12/29/24 13:06 Mode of Arrival: Family Vehicle Source of Information: Patient and Medical Record Description of Symptoms (Recalled from ER Triage Doc. by RN): Pt c/o productive cough, sinus & chest congestion, headache, and chills for several days. States today the cough and congestion feels worse and she is worried she is getting bronchitis. Reports midsternal chest pain when coughing. History of Present Illness HPI narrative: 54-year-old female presents to the ED today with complaint of productive cough, her sputum has been white, and wheezing. She tells me that she has been sick since Friday. She believes she has bronchitis. She says that she has had no chest pain, shortness of breath, abdominal pain. No fevers, chills, nausea or vomiting. She does admit to smoking half pack per day. Nursing notes that she reports midsternal chest pain when coughing but she denies chest pain with me. She does use inhalers. Related Data Home Medications ?Medication ?Instructions ?Recorded ?Confirmed lisinopril 5 mg tablet 5 mg PO ONCE BLOOD PRESSURE 06/03/17 12/29/24 simvastatin 40 mg tablet 40 mg PO QAM Cholesterol 12/29/24 levothyroxine 137 mcg tablet 137 mcg PO DAILY 12/24/22 12/29/24 acyclovir 400 mg tablet 400 mg PO Q8H PRN Cold Sores 07/26/24 12/29/24 albuterol sulfate 90 mcg/actuation 2 puff inhalation Q 4H PRN 07/26/24 12/29/24 aerosol inhaler (Ventolin HFA) Shortness Of Breath Or Wheezing clonazepam 1 mg tablet 1 mg PO QHS Anxiety 07/26/24 12/29/24 ergocalciferol (vitamin D2) 1,250 1,250 mcg PO WEEKLY 07/26/24 12/29/24 mcg (50,000 unit) capsule (Vitamin D2) propranolol 20 mg tablet 20 mg PO DAILY 12/29/2412/18 Previous Rx's ?Medication ?Instructions ?Recorded divalproex 500 mg tablet,extended See Rx Instructions PO .COMPLEX 07/26/24 release 24 hr #450 tabs ethosuximide 250 mg capsule 500 mg (2 x 250 mg) PO BID Seizure 07/26/24 30 days #360 caps ubrogepant 100 mg tablet (Ubrelvy) 100 mg PO ONCE PRN migraine 07/26/24 headache #30 tabs doxycycline hyclate 100 mg capsule 100 mg PO BID 7 day s #14 caps 12/29/24 prednisone 20 mg tablet 20 mg PO BID 5 days #10 tabs 12/29/24 Allergies Allergy/AdvReac Type Severity Reaction Status Date / Time erythromycin base Allergy Mild Rash Verified 12/29/24 12:47 (ERYTHROMYCIN BASE) Penicillins (PENICILLINS) Allergy Mild Hives Verified 12/29/24 12:47 PFS <Inocencia Zhu (ED), RECYCLE WORKER - Last Filed: 12/29/24 15:25> [facility] Disclaimer: The information contained in this section may have been updated after the patient was seen, as this information can be updated by other users. Medical History Mood disorder Managed by PCP with Paxil and clonazepam. History of sleep apnea Mild IAN, AHI 11. History of CPAP intolerance. Despite ongoing education, patient continues to decline further evaluation or treatment. Chronic headaches Seizure Hypertension Surgical History History of tubal ligation H/O thyroidectomy Family History Other Cancer Coronary artery disease Heart attack Hyperlipidemia Hypertension Kidney disease Stroke Social History Smoking Status: Current every day smoker tobacco type: cigarettes packs per day: 30 alcohol intake: never substance use type: denies use current occupational status: other Travel in the last 8 weeks?: None household members: none housing: house marital status: single current occupational exposures/hazards: No caffeine: No Have you lived/traveled outside [place] in past 30 days?: No Contact w/someone who lives/traveled outside US past 30 days?: No Exposure to someone with infectious disease in past 14 days?: No Do you have a fever (greater than 100.4 F or 38 C)?: No Have you tested positive for COVID-19?: No Exposed to someone with COVID-19 in past 14 days?: No Do you have a sore throat?: No Do you have a cough?: No Do you have any weakness?: No Do you have any diarrhea?: No Are you experiencing any unusual bleeding?: No Do you have any muscle aches/pain?: No Do you have any abdominal pain?: No Are you experiencing loss of taste or smell?: No Other Medical History Have you received the Flu Vaccine for this season: No Have you received the Pneumonia Vaccine: No <Inocencia Zhu (ED), RECYCLE WORKER - Last Filed: 12/29/24 15:25> ROS Obtained: Yes Systems reviewed as appropriate & no additional complaints except as documented Constitutional Constitutional: Reports as per HPI Physical Exam <Inocencia Zhu (ED), RECYCLE WORKER - Last Filed: 12/29/24 15:25> General General appearance: alert and in no apparent distress Head Head exam: normocephalic Eye Eye exam: Present PERRL and EOMI ENT ENT exam: Present normal oropharynx and mucous membranes moist Neck Neck exam: Present full ROM and trachea midline Respiratory Respiratory exam: Present wheezes Cardiovascular Cardiovascular exam: Present regular rate, normal rhythm, normal heart sounds, +S1 and +S2 Abdominal Exam Abdominal exam: Present soft and normal bowel sounds Extremities Exam Extremities exam: Present full ROM and normal capillary refill Back Exam Back exam: Present normal inspection Neurological Exam Neurological exam: Present alert and oriented X3 Skin Skin exam: Present warm and dry Medical Decision Making <Inocencia Zhu (ED), RECYCLE WORKER - Last Filed: 12/29/24 15:25> Medical Records Screening: Per USPSTF and CDC recommendations, given the prevalence of disease in our region, it is our hospital?s policy to screen for HIV and viral Hepatitis for all patients aged 18 and over and those with ongoing risk factors. Mark Inquiry Pt receiving controlled substance: No Mark was queried for this patient: No Vital Signs: 12/29/24 12:40 12/29/24 13:30 12/29/24 14:01 Temperature 98.0 F Temperature Source Oral Pulse Rate 88 97 H Pulse Rate [Right] 87 Respiratory Rate 21 16 16 Blood Pressure 112/65 113/65 Blood Pressure [Left Arm] 137/81 Blood Pressure Mean [Left Arm] 99 Blood Pressure Source Blood Pressure Source [Left Arm] Automatic Cuff Blood Pressure Position 02 Sat by Pulse Oximetry 98 99 93 L Oxygen Delivery Method Room Air 12/29/24 15:32 Temperature 98.6 F Temperature Source Oral Pulse Rate 85 Pulse Rate [Right] Respiratory Rate 15 Blood Pressure 135/85 Blood Pressure [Left Arm] Blood Pressure Mean [Left Arm] Blood Pressure Source Automatic Cuff Blood Pressure Source [Left Arm] Blood Pressure Position Supine 02 Sat by Pulse Oximetry Oxygen Delivery Method Room Air Lab Data Lab Results 12/29/24 12:55: SARS-CoV-2 (PCR) Not detected, Influenza A Untype (PCR) Not detected, Influenza Type B (PCR) Not detected 12/29/24 13:11: WBC 9.3, RBC 4.70, Hgb 15.4, Hct 45.2, MCV 96.2, MCH 32.8 H, MCHC 34.1, RDW 14.3, Plt Count 284, MPV 9.6, Neut % (Auto) 40.3, Lymph % (Auto) 42.8, [place] % (Auto) 14.1 H, Eos % (Auto) 1.6, Baso % (Auto) 0.7, Neut # (Auto) 3.8, Lymph # (Auto) 4.0, [place] # (Auto) 1.3 H, Eos # (Auto) 0.2, Baso # (Auto) 0.1, Sodium 132 L, Potassium 4.3, Chloride 102, Carbon Dioxide 24, Anion Gap 10.3, BUN 16, Creatinine 0.70, Estimated Creat Clear 112, Estimated GFR 87, Est GFR ( Amer) 105, Glucose 81, Calcium 9.2, Magnesium 1.8, Total Bilirubin 0.4, AST 24, ALT 17, Alkaline Phosphatase 62, Troponin I < 0.01, Total Protein 7.2, Albumin 4.3, Globulin 2.9, Albumin/Globulin Ratio 1.5, Lipase 193, HCV Ab SAM w/Rflx PCR Qn Negative, HIV Ag/Ab Combo Qual Negative 12/29/24 13:11 12/29/24 13:11 Orders (Tests/Meds): ED MEDICATIONS Discontinued Medications Generic Name Dose Route Start Last Admin Trade Name Freq PRN Reason Stop Dose Admin Albuterol/Ipratropium 9 ml 12/29/24 13:09 12/29/24 13:20 Ipratropium/Albuterol 3 Ml Neb IH 12/29/24 13:10 9 ml ONCE ONE Administration Dexamethasone Sodium Phosphate 8 mg 12/29/24 13:09 12/29/24 13:19 Dexamethasone 4mg/Ml 1ml Vial IV 12/29/24 13:10 8 mg ONCE ONE Administration Magnesium Sulfate 2 gm in 50 mls @ 50 mls/hr 12/29/24 13:09 12/29/24 14:27 Magnesium Sulfate 2gm/50ml Premix IV 12/29/24 14:08 Infused ONCE ONE Infusion ORDERS Category Date Time Status Chest XR -- portable [XR chest portable] Stat Exams 12/29/24 13:09 Completed CBC [Complete Blood Count Auto Diff] Stat Lab 12/29/24 13:11 Completed Comprehensive Metabolic Panel Stat Lab 12/29/24 13:11 Completed HIV Combo Stat Lab 12/29/24 13:11 Completed Hepatitis C Ab Qual. W/ RFX Stat Lab 12/29/24 13:11 Completed Lipase Stat Lab 12/29/24 13:11 Completed Magnesium Stat Lab 12/29/24 13:11 Completed Rapid PCR Covid and Flu A/B Stat Lab 12/29/24 12:55 Completed Trop I [Troponin I] Stat Lab 12/29/24 13:11 Completed Medical Decision Narrative: patient is a 54-year-old female presenting to the emergency department for evaluation of cough and wheezing with productive sputum. Patient is hemodynamically stable and nontoxic-appearing upon arrival, afebrile. Differential diagnosis includes viral illness, bronchitis, COPD. Workup will be conducted with hematologic labs, specific imaging, provocative tests. Initial inventions include antibiotics, steroids, DuoNeb analgesics, antibiotics. Initial workup reviewed by ne hematologic labs are remarkable for white count 9.3 troponin less than 0.01 COVID and flu were nondetectable. Imaging shows nothing acute on chest x-ray. Patient is safe for discharge home. <Julio White MD - Last Filed: 12/29/24 16:24> Vital Signs: 12/29/24 12:40 12/29/24 13:30 12/29/24 14:01 Temperature 98.0 F Temperature Source Oral Pulse Rate 88 97 H Pulse Rate [Right] 87 Respiratory Rate 21 16 16 Blood Pressure 112/65 113/65 Blood Pressure [Left Arm] 137/81 Blood Pressure Mean [Left Arm] 99 Blood Pressure Source Blood Pressure Source [Left Arm] Automatic Cuff Blood Pressure Position 02 Sat by Pulse Oximetry 98 99 93 L Oxygen Delivery Method Room Air 12/29/24 15:32 Temperature 98.6 F Temperature Source Oral Pulse Rate 85 Pulse Rate [Right] Respiratory Rate 15 Blood Pressure 135/85 Blood Pressure [Left Arm] Blood Pressure Mean [Left Arm] Blood Pressure Source Automatic Cuff Blood Pressure Source [Left Arm] Blood Pressure Position Supine 02 Sat by Pulse Oximetry Oxygen Delivery Method Room Air Lab Data Lab Results 12/29/24 12:55: SARS-CoV-2 (PCR) Not detected, Influenza A Untype (PCR) Not detected, Influenza Type B (PCR) Not detected 12/29/24 13:11: WBC 9.3, RBC 4.70, Hgb 15.4, Hct 45.2, MCV 96.2, MCH 32.8 H, MCHC 34.1, RDW 14.3, Plt Count 284, MPV 9.6, Neut % (Auto) 40.3, Lymph % (Auto) 42.8, [place] % (Auto) 14.1 H, Eos % (Auto) 1.6, Baso % (Auto) 0.7, Neut # (Auto) 3.8, Lymph # (Auto) 4.0, [place] # (Auto) 1.3 H, Eos # (Auto) 0.2, Baso # (Auto) 0.1, Sodium 132 L, Potassium 4.3, Chloride 102, Carbon Dioxide 24, Anion Gap 10.3, BUN 16, Creatinine 0.70, Estimated Creat Clear 112, Estimated GFR 87, Est GFR ( Amer) 105, Glucose 81, Calcium 9.2, Magnesium 1.8, Total Bilirubin 0.4, AST 24, ALT 17, Alkaline Phosphatase 62, Troponin I < 0.01, Total Protein 7.2, Albumin 4.3, Globulin 2.9, Albumin/Globulin Ratio 1.5, Lipase 193, HCV Ab SAM w/Rflx PCR Qn Negative, HIV Ag/Ab Combo Qual Negative Orders (Tests/Meds): ED MEDICATIONS Discontinued Medications Generic Name Dose Route Start Last Admin Trade Name Freq PRN Reason Stop Dose Admin Albuterol/Ipratropium 9 ml 12/29/24 13:09 12/29/24 13:20 Ipratropium/Albuterol 3 Ml Neb IH 12/29/24 13:10 9 ml ONCE ONE Administration Dexamethasone Sodium Phosphate 8 mg 12/29/24 13:09 12/29/24 13:19 Dexamethasone 4mg/Ml 1ml Vial IV 12/29/24 13:10 8 mg ONCE ONE Administration Magnesium Sulfate 2 gm in 50 mls @ 50 mls/hr 12/29/24 13:09 12/29/24 14:27 Magnesium Sulfate 2gm/50ml Premix IV 12/29/24 14:08 Infused ONCE ONE Infusion ORDERS Category Date Time Status Chest XR -- portable [XR chest portable] Stat Exams 12/29/24 13:09 Completed CBC [Complete Blood Count Auto Diff] Stat Lab 12/29/24 13:11 Completed Comprehensive Metabolic Panel Stat Lab 12/29/24 13:11 Completed HIV Combo Stat Lab 12/29/24 13:11 Completed Hepatitis C Ab Qual. W/ RFX Stat Lab 12/29/24 13:11 Completed Lipase Stat Lab 12/29/24 13:11 Completed Magnesium Stat Lab 12/29/24 13:11 Completed Rapid PCR Covid and Flu A/B Stat Lab 12/29/24 12:55 Completed Trop I [Troponin I] Stat Lab 12/29/24 13:11 Completed ECG Data Tracing #1: Patient's EKG was independently reviewed by me, and interpreted to be significant for NSR with no acute ST-segment changes. Incomplete right bundle branch block, not acutely actionable Critical Care <Inocencia Zhu (ED), RECYCLE WORKER - Last Filed: 12/29/24 15:25> Critical Care Time Critical Care Time: No
[2024-12-29 13:30] VITALS: BP 112/65; PULSE 88; RESP 16; O2SAT 99
[2024-12-29 13:32] LABS: Hematocrit 45.2 % (37.0-47.0); Hemoglobin 15.4 g/dL (12.2-16.2); Immature Granulocytes % 0.5 %; Mean Corpuscular HGB Conc 34.1 g/dL (31.8-35.4); Mean Corpuscular Hemoglobin 32.8 pg (27.0-31.2); Mean Corpuscular Volume 96.2 fl (81-99); Nucleated Red Blood Cells % 0 %; Platelet Count 284 K/mm3 (142-424); Red Blood Count 4.70 M/mm3 (4.20-5.40); Red Cell Distribution Width-SD 50.7 fL; White Blood Count 9.3 K/mm3 (4.8-10.8)
[2024-12-29 13:33] LABS: Alanine Aminotransferase 17 U/L (12-78); Albumin Level 4.3 g/dl (3.5-5.0); Albumin/Globulin Ratio 1.5 (1.1-1.8); Alkaline Phosphatase 62 U/L (38-126); Anion Gap 10.3 mEq/L (5-15); Aspartate Amino Transferase 24 U/L (14-36); Bilirubin,Total 0.4 mg/dl (0.2-1.3); Blood Urea Nitrogen 16 mg/dl (7-17); Calcium 9.2 mg/dl (8.4-10.2); Carbon Dioxide 24 mmol/L (22.0-30.0); Chloride 102 mmol/L (98-107); Creatinine Clearance Estimated 112 mL/min (50-200); Creatinine,Serum 0.70 mg/dl (0.52-1.04); Estimated Glomerular Filt Rate 87 ml/min (>60); GFR (African American) 105 ML/MIN (>60); Globulin 2.9 g/dL (1.3-3.2); Glucose 81 mg/dl (74-100); Lipase 193 U/L (23-300); Magnesium 1.8 mg/dl (1.6-2.3); Potassium 4.3 mmoL/L (3.5-5.1); Sodium 132 mmol/L (136-145); Total Protein,Serum 7.2 g/dl (6.3-8.2)
[2024-12-29 13:47] LABS: Troponin I < 0.01 ng/ml (0.00-0.034)
[2024-12-29 14:01] VITALS: BP 113/65; PULSE 97; RESP 16; O2SAT 93
[2024-12-29 14:50] LABS: Hepatitis C Ab Qual. W/ RFX NEGATIVE (Negative)
[2024-12-29 15:32] VITALS: BP 135/85; PULSE 85; RESP 15; TEMP 37; O2SAT 99
== END 2024-12-29 15:36 | disposition home or self-care (01) ==
PROVIDERS: Nurse Practitioner; Emergency Provider Emergency Medicine; PCP Nurse Practitioner
DX: J44.1 Chronic obstructive pulmonary disease with (acute) exacerbation (principal); E87.1 Hypo-osmolality and hyponatremia; I10 Essential (primary) hypertension
CPT/HCPCS: 71045; 80053; 83690; 83735; 84484; 85025; 86803; 87389; 87636; 93005; 96365; 96374; 99285; J1100; J3475

== ENCOUNTER 2025-01-19 15:04 | Outpatient (CLI) | payer MEDICARE, MEDICAID, SELFPAY ==
--- OUTSIDE RECORDS SUMMARY | 2025-01-19 15:06 | XMS_ITS | Clinical Summary ---
Author Organization [employer] ([place], [place], [place], [place], [place]) Address [address] [place] [address] Care Team Providers Care Occupational Health Physiotherapist Name Role Phone [facility], Provider Not In The System MD Primary Care Provider Unavailable Allergies Active Allergy Reactions Criticality Noted Date Comments Erythromycin Other (See Comments) 10/02/2023 UNSURE Penicillin Hives High 10/01/2023 Medications Ventolin HFA 90 mcg/actuation inhaler 2 puffs every 4 (four) hours as needed. 08/14/2023 Active clonazePAM (KlonoPIN) 1 MG tablet Take 1 tablet (1 mg total) by mouth 2 (two) times daily. 09/29/2023 Active divalproex (DEPAKOTE) 500 MG 24 hr tablet Take by mouth. 09/26/2023 Active Vitamin D2 1,250 mcg (50,000 unit) capsule Take 1 capsule (50,000 Units total) by mouth once a week. 09/26/2023 Active ethosuximide (ZARONTIN) 250 mg capsule Take 2 capsules (500 mg total) by mouth 2 (two) times daily. 09/26/2023 Active famotidine (PEPCID) 20 MG tablet Take 1 tablet (20 mg total) by mouth. 08/14/2023 Active ibuprofen (ADVIL,MOTRIN) 600 MG tablet 1 tablet (600 mg total) every 6 (six) hours as needed. 08/20/2023 Active levothyroxine (SYNTHROID, LEVOTHROID) 137 MCG tablet Take 1 tablet (137 mcg total) by mouth every morning. 09/26/2023 Active lisinopriL (PRINIVIL,ZESTR IL) 5 MG tablet TAKE 1 TABLET 1 TIME EACH DAY 09/26/2023 Active medroxyPROGESTE Luis Armando (PROVERA) 5 MG tablet Take 2 tablets (10 mg total) by mouth 2 (two) times daily. 10/01/2023 Active Sprintec, 28, 0.25-35 mg-mcg per tablet TAKE 1 TABLET 1 TIME EACH DAY 09/22/2023 Active PARoxetine (PAXIL) 10 MG tablet Take 1 tablet (10 mg total) by mouth every morning. 09/26/2023 Active propranoloL (INDERAL) 20 MG tablet Take 2 tablets (40 mg total) by mouth 2 (two) times daily. 08/29/2023 Active simvastatin (ZOCOR) 40 MG tablet SMARTSI Tablet(s) By Mouth Every Evening 09/26/2023 Active Ubrelvy 100 mg tab Take by mouth. 09/26/2023 Active Active Problems Problem Noted Date Diagnosed Date Abnormal uterine bleeding (AUB) 10/01/2023 Social History Tobacco Use Types Packs/Day Years Used Date Smoking Tobacco: Every Day Cigarettes Smokeless Tobacco: Never Tobacco Cessation:Ready to Q uit: Not Asked; Counseling Given: Not Answered Alcohol Use Standard Drinks/Week Comments Never 0 (1 standard drink = 0.6 oz pur e alcohol) Food Insecurity Answer Date Recorded Food run out past 12 months Not on file 08/19 Food did not last past 12 months Not on file 09/16/2023 Employment Answer Date Recorded Help finding and keeping a job Not on file 0 09/16/2023 Family and Community Support Answer Ab e Recorded Help with Day to Day Activities Not on file 09/16/2023 Feeling Lonely or Isolated Not on file 09/15 Educational Attainment Answer Date Moises rded Speak language other than Belarusian at home Not on file 09/16/2023 Want help with school or training Not on file 09/16/2023 Substance Use Answer Date Recorded Used prescription meds for non-medical reasons N ot on file 09/16/2023 Used illegal drugs past 12 months Not on file 09/16/2023 Comments No Sex and Gender Information Value Date Recorded Sex Assigned at Not on file Legal Sex Female 1:31 PM CDT Gender Identity Not on file Sexual Orientation Not on file Last Filed Vital Signs Vital Sign Reading Time Taken Comments Blood Pressure 136/65 10/03/2023 10:41 AM EDT Pulse 90 10/03/2023 10:41 AM EDT Temperature 36.4 C (97.5 F) 10/03/2023 9:52 AM EDT Respiratory Rate 18 10/03/2023 10:41 AM EDT Oxygen Saturation 98% 10/03/2023 10:41 AM EDT Inhaled Oxygen Concentration - - Weight 75.8 kg (167 lb) 10/03/2023 8:21 AM EDT Height 157.5 cm (5' 2 ) 10/03/2023 8:21 AM EDT Body Mass Index 30.54 10/03/2023 8:21 AM EDT Plan of Treatment Health Maintenance Due Date Last Done Comments CT Colonography 1969 Colonoscopy 1969 Colorectal Cancer Screening 1969 FOBT/FIT 1969 Fit-DNA (Cologuard) 1969 Sigmoidoscopy 1969 Depression Screening (12+) 1981 HIV Screening 01/05/1984 Hepatitis C Screening 1987 Pneumococcal 50+ years (1 of 2 - PCV) 01/05/1988 Pap Smear 1990 DTAP/TDAP/TD VACCINES (1 - Tdap) 07/20/2007 07/19/19 08 Breast Cancer Screening 2009 Lipid Panel 2014 Shingles Vaccine (Zoster) (1 of 2) 2019 Tobacco Cessation Counseling and Screening (12+) 10/02/2024 10/03/2023 COVID-19 VACCINE (1 - 2023-2 5 season) 2024 Influenza Vaccine (#1) 2024 3, 11/13/2021, 11/26/2019, Additional history exists Insurance Advance Directives For more information, please contact: [phone] * Full Code (Latest Code Status on File) Date Activated Date Inactivated Comments 10/01/2023 1:31 PM 10/03/2023 7:06 AM Care Teams Occupational Health Physiotherapist Relationship Specialty Start Date End Date [facility], Provider Not In The System, [place] [address] PCP - General 10/03/23
--- OUTSIDE RECORDS SUMMARY | 2025-01-19 15:06 | XMS_ITS | Clinical Summary ---
Author Organization Healthcare Address [address] [place] [address] Care Team Providers Care Supervisor Customer Services Name Role Phone Rafa Hoffman MD Primary Care Provider [phone] Family History Medical History Relation Name Comments [...] of Treatment Not on file Care Teams Supervisor Customer Services Relationship Specialty Start Date End Date Rafa Hoffman MD [address] [place] [id number] PCP - General 06/30/20
--- OUTSIDE RECORDS SUMMARY | 2025-01-19 15:06 | XMS_ITS | Encounter Summary ---
Author Organization [employer] ([place], [place], [place], [place], [place]) Address [address] [place] [address] Care Team Providers Care Financial Agent Name Role Phone [facility], Provider Not In The System MD Primary Care Provider Unavailable Encounter Details Date Type Department Care Team ([facility] st Contact Info) Description 10/01/2023 Surgery Prep [facility] Pre [facility] Post Care [address] [place] [address] Young Rapp MD [address] [place] [address] [place] [address] Abnormal uterine bleeding (AUB) (Primary Dx) Social History Tobacco Use Types Packs/Day Years Used Date Smoking Tobacco: Never Assessed Food Insecurity Answer Date Recorded Food run [...] Date Moises rded Speak language other than Portuguese at home Not on file 09/16/2023 Want help with school or training Not on file 09/16/2023 Substance Use Answer Date Recorded Used prescription meds for non-medical reasons N ot on file 09/16/2023 Used illegal drugs past 12 months Not on file 09/16/2023 Comments Unknown Sex and Gender Information Value Date Recorded Sex Assigned at Not on file Legal Sex Female 1:31 PM CDT Gender Identity Not on file Sexual Orientation Not on file documented as of this encounter Plan of Treatment Not on file documented as of this encounter Visit Diagnoses Diagnosis Abnormal uterine bleeding (AUB)- Primary documented in this encounter Administered Medications Active Administered Medications - up to 3 most recent administrations Medication Order MAR Action Action Date Dose Rate Site lactated ringers (LR) infusion 1,000 mL Continuous, intravenous, at 100 mL/hr, Starting on Fri10/01/23 at 1500, Do not give simultaneously with ceftriaxone via a Y-site., Pre-op sodium chloride 0.9% (NS) flush 10 mL 10 mL As needed, intravenous, line care, Starting on Fri10/01/23 at 1425, Every 8 hours and PRN to flush, Pre-op documented in this encounter Care Teams Financial Agent Relationship Specialty Start Date End Date [facility], Provider Not In The System, [place] [address] PCP - General 10/03/23 documented as of this encounter
--- OUTSIDE RECORDS SUMMARY | 2025-01-19 15:06 | XMS_ITS | Referral Summary ---
Author Organization [email or web address] ([place], [place], [place], [place], [place]) Address [address] [place] [address] Care Team Providers Care Candy Supervisor Name Role Phone [facility], Provider Not In The System MD Primary [...] Date Moises rded Speak language other than Mongolian at home Not on file 09/16/2023 Want [...] 10/03/2023 8:21 AM EDT Plan of Treatment Not on file Insurance Advance Directives For more information, please contact: [phone] * Full Code (Latest Code Status on File) Date Activated Date Inactivated Comments 10/01/2023 1:31 PM 10/03/2023 7:06 AM Care Teams Candy Supervisor Relationship Specialty Start Date End Date [facility], Provider Not In The System, [place] [address] PCP - General 10/03/23
== END 2025-01-19 23:59 | disposition home or self-care (01) ==
LOC: RT 15:05
PROVIDERS: PCP Nurse Practitioner; Visit Provider Internal Medicine
DX: R07.9 Chest pain, unspecified (principal); R94.31 Abnormal electrocardiogram [ECG] [EKG]
CPT/HCPCS: 93270